=== PATIENT | male | born 1955 | race Caucasian/White ===

== ENCOUNTER 2017-07-12 10:28 | Inpatient (IN) | payer OTHER ==
[~2017-07-12] VITALS: Ht 165.1 cm; Wt 75.0 kg
[2017-07-12] MEDS ORDERED: HYDROmorphONE 1 MG/ML SYG IV STA (11:43)
[2017-07-12 11:57] LABS: ABNORMAL IP MESSAGE 1; BASOPHILS % 0.2 % (0.0-2.0); EOSINOPHILS # 0.1 10^3/ul (0.0-0.5); EOSINOPHILS % 0.3 % (0.0-7.0); HEMATOCRIT 33.4 % (42.0-52.0); HEMOGLOBIN 11.1 g/dl (14.0-18.0); LYMPHOCYTES # 1.8 10^3/ul (0.8-2.9); LYMPHOCYTES % 10.1 % (15.0-51.0); MEAN CORPUSCULAR HEMOGLOBIN 27.5 pg (29.0-33.0); MEAN CORPUSCULAR HGB CONC 33.2 g/dl (32.0-37.0); MEAN CORPUSCULAR VOLUME 82.9 fl (82.0-101.0); MEAN PLATELET VOLUME 8.8 fl (7.4-10.4); MONOCYTE # 1.7 10^3/ul (0.3-0.9); MONOCYTES % 9.5 % (0.0-11.0); NEUTROPHIL # 14.3 10^3/ul (1.6-7.5); PLATELET COUNT 295 10^3/UL (140-415); POSITIVE DIFF @See below; RED BLOOD COUNT 4.03 10^6/ul (4.70-6.10); RED CELL DISTRIBUTION WIDTH 13.9 % (11.5-14.5); WHITE BLOOD COUNT 18.1 10^3/ul (4.8-10.8)
[2017-07-12] MEDS ORDERED: LEVOFLOXACIN 500MG/D5W (PMX) 100 ML IVPB ONE (12:00)
[2017-07-12 12:14] LABS: ALBUMIN 3.7 g/dl (3.3-4.9); ALBUMIN/GLOBULIN RATIO 0.97; BILIRUBIN,INDIRECT 0.3 mg/dl (0-1.1); BILIRUBIN,TOTAL 0.3 mg/dl (0.2-1.3); CALCIUM 8.6 mg/dl (8.4-10.2); CREATININE 0.82 mg/dl (0.61-1.24); POTASSIUM 4.3 mmol/L (3.5-5.1); TOTAL PROTEIN 7.5 g/dl (6.1-8.1)
[2017-07-12 12:48] LABS: ADD UMIC YES; UR ASCORBIC ACID NEGATIVE (NEGATIVE); UR BACTERIA FEW /HPF (NONE SEEN); UR BILIRUBIN (Dip) NEGATIVE (NEGATIVE); UR BLOOD (Dip) 2+ mg/dL (NEGATIVE); UR CLARITY SLIGHTLY CLOUDY (CLEAR); UR COLOR YELLOW (YELLOW); UR GLUCOSE (Dip) 1+ mg/dL (NEGATIVE); UR KETONES (Dip) NEGATIVE (NEGATIVE); UR LEUKOCYTE ESTERASE (Dip) 3+ Leu/ul (NEGATIVE); UR MUCUS FEW /HPF (NONE SEEN); UR NITRITE (Dip) NEGATIVE (NEGATIVE); UR RBC 7 /HPF (0-5); UR SPECIFIC GRAVITY (Dip) 1.013 (1.003-1.030); UR TOTAL PROTEIN (Dip) 1+ mg/dl (NEGATIVE); UR UROBILINOGEN (Dip) 1+ mg/dL (NEGATIVE)
[2017-07-12] MEDS ORDERED: ONDANSETRON 4 MG INJ IV STA (12:55)
--- NOTE | 2017-07-12 13:05 | RADRPT ---
PROCEDURE: US Scrotum and Testicles. CLINICAL INDICATION: Scrotal pain. TECHNIQUE: Multiple sonographic images of the scrotal region were obtained utilizing a linear arra y transducer with grayscale, color-flow and Doppler imaging. The images were reviewed on a high-reso [employer] PACS workstation. COMPARISON: No prior studies are available for comparison. FINDINGS: The right testicle measures 4.4 x 2.4 x 2.9 cm. The left testicle measures 3.7 x 2.3 x 3.2 cm. The testicles demonstrate a normal echogenicity and vascularity. The right epididymis measures 0.6 cm in length. The left epididymis measures 2.8 cm in length. D iffuse heterogeneity of the left epididymis is identified. Increased vascularity in the left epididy mis is seen. Small bilateral hydroceles are observed. Scrotal wall thickening, left greater than right is observed. IMPRESSION: Enlarged, heterogeneous appearing left epididymis with increased vascularity. Findings suggest epidi dymitis. An underlying epididymis lesion or mass cannot definitely be excluded. Follow-up ultrasound after treatment is recommended. Unremarkable testicles. Small bilateral hydroceles. Scrotal wall thickening, left greater than right. Findings may reflect scrotal wall edema or potenti ally cellulitis. RPTAT: AA .Mode Soares MD, MD Date Time Electronically viewed and signed by .Mode Soares MD, MD on 07/12/2017 13:04 .P/
[2017-07-12] MEDS ORDERED: LORAZEPAM 2 MG INJ IV PRN (13:30)
[2017-07-12] MEDS ORDERED: CEFTRIAXONE 1 GM/50 ML (PMX) 50 ML IVPB ONE (13:30)
[2017-07-12] MEDS ORDERED: DOCUSATE SODIUM 100 MG CAP PO PRN (13:30)
[2017-07-12] MEDS ORDERED: ONDANSETRON 4 MG INJ IV PRN ×2 (13:30)
[2017-07-12] MEDS ORDERED: ACETAMINOPHEN 325 MG TAB PO PRN (13:30)
[2017-07-12] MEDS ORDERED: MAGNESIUM HYDROXIDE 30ML CUP PO PRN (13:30)
[2017-07-12] MEDS ORDERED: hydrALAzine 20 MG INJ IV PRN (13:30)
[2017-07-12] MEDS ORDERED: ALBUTEROL/IPRATROPIUM (NEB) 3 ML AMP HHN PRN (13:30)
[2017-07-12] MEDS ORDERED: NITROGLYCERIN (SL) 0.4 MG TAB SL PRN (13:30)
[2017-07-12] MEDS ORDERED: morphine 2 MG INJ IV PRN (13:30)
[2017-07-12] MEDS ORDERED: NA PHOSPHATE/BIPHOS 133 ML ENEMA PR PRN (13:30)
[2017-07-12] MEDS ORDERED: NACL 0.9% 3 ML SYG IV SCH (13:30)
[2017-07-12 13:36] VITALS: TEMP 97.3
[2017-07-12] MEDS ORDERED: GLUCAGON 1 MG INJ IM PRN (14:00)
[2017-07-12] MEDS ORDERED: GLUCOSE GEL 15 GRAM TUBE BUCCAL PRN (14:00)
[2017-07-12] MEDS ORDERED: HYPOGLYCEMIA PROTOCOL when Glucose is <70 mg/dL or symptomatic <90 mg/dL. XX ONE (14:00)
[2017-07-12] MEDS ORDERED: GLUCOSE GEL 15 GRAM TUBE PO PRN ×2 (14:00)
[2017-07-12] MEDS ORDERED: DEXTROSE 50% 50 ML SYRINGE IV PRN ×2 (14:00)
[2017-07-12] MEDS ORDERED: Discontinue current oral sulfonylureas (glyburide, glipizide, and/or glimepiride) prior to XX ONE (14:00)
[2017-07-12 14:06] LABS: INR 1.22; PROTIME 15.5 Sec (12.2-14.2); PT RATIO 1.2
[2017-07-12 14:07] LABS: PARTIAL THROMBOPLASTIN TIME 35.3 Sec (25.0-35.0)
--- NOTE | 2017-07-12 14:08 | ERA ---
ER Documentation Chief Complaint Date/Time DATE: 07/12/17 TIME: 14:01 Chief Complaint left testicular swelling , fever x 4 days HPI 62-year-old male with a history of diabetes presenting with left testicular pain for the past 4 days. He has had associated subjective fevers. The pain is now radiating up into his abdomen. He denies any associated dysuria or difficulty urinating. He was seen by his primary care doctor 2 days ago. A testicular ultrasound was ordered and done outpatient but they do not know the results. Primary care doctor put him on ciprofloxacin and ofloxacin orally, but these medications are not helping him. He has never had symptoms like this before. He denies any other associated symptoms such as nausea or vomiting. ROS All systems reviewed and are negative except as per history of present illness. Allergies Allergies: Coded Allergies: No Known Allergy (Unverified , 07/12/17) PMhx/Soc History of Surgery: No Anesthesia Reaction: No Hx Neurological Disorder: No Hx Respiratory Disorders: No Hx Miscellaneous Medical Probl: Yes (diabetes ) Hx Alcohol Use: No Hx Substance Use: No Hx Tobacco Use: No Smoking Status: Never smoker FmHx Family History: No coronary disease Physical Exam Vitals Vital Signs Date Time Temp Pulse Resp B/P Pulse Ox O2 Delivery O2 Flow Rate FiO2 07/12/17 13:36 97.3 62 16 125/58 99 Room Air 07/12/17 10:30 98.5 78 18 126/59 99 Physical Exam Const: Well-appearing, nontoxic, no apparent distress Head: Atraumatic Eyes: Normal Conjunctiva ENT: Normal External Ears, Nose and Mouth. Neck: Full range of motion..~ No meningismus. Resp: Clear to auscultation bilaterally Cardio: Regular rate and rhythm, no murmurs Abd: Soft, non tender, non distended. Normal bowel sounds Exam: Penis normal, uncircumcised Scrotum: Mildly erythematous on the left with induration. No crepitus or discoloration otherwise Hernia: None Testes/Epid: Left testicle enlarged and tender to palpation diffusely. Right testicle normal, nontender Cremaster: No reflex on left Lymph: Left inguinal lymphadenopathy noted Discharge: None Skin: No petechiae or rashes Back: No midline or flank tenderness Ext: No cyanosis, or edema Neur: Awake and alert Psych: Normal Mood and Affect Result Diagram: 07/12/17 1140 07/12/17 1140 Results 24 hrs Laboratory Tests Test 07/12/17 11:40 07/12/17 12:00 White Blood Count 18.110^3/ul Red Blood Count 4.0310^6/ul Hemoglobin 11.1g/dl Hematocrit 33.4% Mean Corpuscular Volume 82.9fl Mean Corpuscular Hemoglobin 27.5pg Mean Corpuscular Hemoglobin Concent 33.2g/dl Red Cell Distribution Width 13.9% Platelet Count 32718^3/UL Mean Platelet Volume 8.8fl Neutrophils % 79.0% Lymphocytes % 10.1% Monocytes % 9.5% Eosinophils % 0.3% Basophils % 0.2% Nucleated Red Blood Cells % 0.0/100WBC Neutrophils # 14.310^3/ul Lymphocytes # 1.810^3/ul Monocytes # 1.710^3/ul Eosinophils # 0.110^3/ul Basophils # 0.010^3/ul Nucleated Red Blood Cells # 0.010^3/ul Sodium Level 136mmol/L Potassium Level 4.3mmol/L Chloride Level 100mmol/L Carbon Dioxide Level 28mmol/L Anion Gap 12 Blood Urea Nitrogen 12mg/dl Creatinine 0.82mg/dl Glucose Level 147mg/dl Calcium Level 8.6mg/dl Total Bilirubin 0.3mg/dl Direct Bilirubin 0.00mg/dl Indirect Bilirubin 0.3mg/dl Aspartate Amino Transf (AST/SGOT) 23IU/L Alanine Aminotransferase (ALT/SGPT) 49IU/L Alkaline Phosphatase 160IU/L Total Protein 7.5g/dl Albumin 3.7g/dl Globulin 3.80g/dl Albumin/Globulin Ratio 0.97 Urine Color YELLOW Urine Clarity SLIGHTLY CLOUDY Urine pH 6.0 Urine Specific [place] 1.013 Urine Ketones NEGATIVEmg/dL Urine Nitrite NEGATIVEmg/dL Urine Bilirubin NEGATIVEmg/dL Urine Urobilinogen 1+mg/dL Urine Leukocyte Esterase 3+Bridget/ul Urine Microscopic RBC 7/HPF Urine Microscopic WBC > 182/HPF Urine Bacteria FEW/HPF Urine Mucus FEW/HPF Urine Hemoglobin 2+mg/dL Urine Glucose 1+mg/dL Urine Total Protein 1+mg/dl Current Medications Medications (Trade) Dose Ordered Sig/Lexi Route PRN Reason Start Time Stop Time Status Last Admin Dose Admin Hydromorphone HCl 1 mg 1 mg ONCE STAT IV 07/12/17 11:43 07/12/17 11:46 DC 07/12/17 11:53 Levofloxacin/ Dextrose (Levaquin 500mg/ D5W 100 ml (Pmx)) 100 ml @ 100 mls/hr ONCE ONCE IVPB 07/12/17 12:00 07/12/17 12:59 DC 07/12/17 11:53 Ondansetron HCl (Zofran Inj) 4 mg ONCE STAT IV 07/12/17 12:55 07/12/17 12:56 DC 07/12/17 13:01 Ondansetron HCl (Zofran Inj) 4 mg BRIDGE ORDER PRN IV NAUSEA AND/OR VOMITING 07/12/17 13:30 07/13/17 13:29 Acetaminophen 650 mg 650 mg ER BRIDGE PRN PO MILD PAIN/FEVER 07/12/17 13:30 07/13/17 13:29 Ceftriaxone Sodium (Rocephin) 50 ml @ 100 mls/hr ONCE ONCE IVPB 07/12/17 13:30 07/12/17 13:59 DC 07/12/17 13:34 IV Flush (NS 3 ml) 3 ml PER PROTOCOL IV 07/12/17 13:30 Ondansetron HCl (Zofran Inj) 4 mg Q6H PRN IV NAUSEA AND/OR VOMITING 07/12/17 13:30 Acetaminophen (Tylenol Tab) 650 mg Q6H PRN PO PAIN LEVEL 1-3 OR FEVER 07/12/17 13:30 Acetaminophen/ Hydrocodone Bitart ([place] (5/325)) 1 tab Q6H PRN PO MODERATE PAIN LEVEL 4-6 07/12/17 13:30 Morphine Sulfate (morphine) 2 mg Q4H PRN IV SEVERE PAIN LEVEL 7-10 07/12/17 13:30 Docusate Sodium (Colace) 100 mg Q12H PRN PO CONSTIPATION 07/12/17 13:30 Magnesium Hydroxide (Milk Of Mag) 30 ml DAILY PRN PO CONSTIPATION 07/12/17 13:30 Sodium Biphosphate/ Sodium Phosphate (Fleet Enema) 133 ml DAILY PRN [place] CONSTIPATION 07/12/17 13:30 Heparin Sodium (Porcine) (Heparin (5000 Units/0.5 ml)) 5,000 unit Q12 SC 07/12/17 21:00 Lorazepam 0.5 mg 0.5 mg Q6H PRN IV ANXIETY 07/12/17 13:30 Sodium Chloride (NS) 1,000 ml @ 100 mls/hr Q10H IV 07/12/17 13:20 Albuterol/ Ipratropium (Duoneb) 3 ml Q4H RESP THERAPY PRN HHN SHORTNESS OF BREATH 07/12/17 13:30 Hydralazine HCl (Apresoline) 10 mg Q6H PRN IV ELEVATED BLOOD PRESSURE 07/12/17 13:30 Clonidine (Catapres) 0.1 mg Q6H PRN PO ELEVATED BLOOD PRESSURE 07/12/17 13:30 Nitroglycerin 1 tab 1 tab Q5M PRN SL ANGINA 07/12/17 13:30 Ceftriaxone Sodium (Rocephin) 50 ml @ 100 mls/hr Q24H IVPB 07/13/17 14:00 Miscellaneous Information (* Miscellaneous Pharmacy Order) Discontinue current oral sulfonylur... ONCE ONCE XX 07/12/17 14:00 07/12/17 14:01 Diagnostic Test (Pha) (Accu-Chek) 1 ea 02 XX 07/13/17 02:00 Miscellaneous Information (* Miscellaneous Pharmacy Order) HYPOGLYCEMIA PROTOCOL w... ONCE ONCE XX 07/12/17 14:00 07/12/17 14:01 Insulin Aspart (Novolog Insulin Pen) NOVOLOG *MILD* ALGORI... Q4 SC 07/12/17 17:00 Miscellaneous Information (* Miscellaneous Pharmacy Order) Discontinue all previ... ONCE ONCE XX 07/12/17 14:00 07/12/17 14:01 Miscellaneous Information 1 ea NOTE XX 07/12/17 14:00 Glucose (Glutose) 15 gm Q15M PRN PO DECREASED GLUCOSE 07/12/17 14:00 Glucose (Glutose) 22.5 gm Q15M PRN PO DECREASED GLUCOSE 07/12/17 14:00 Dextrose (D50w Syringe) 25 ml Q15M PRN IV DECREASED GLUCOSE 07/12/17 14:00 Dextrose (D50w Syringe) 50 ml Q15M PRN IV DECREASED GLUCOSE 07/12/17 14:00 Glucagon (Glucagen) 1 mg Q15M PRN IM DECREASED GLUCOSE 07/12/17 14:00 Glucose (Glutose) 15 gm Q15M PRN BUCCAL DECREASED GLUCOSE 07/12/17 14:00 Procedures/MDM Labs CBC: leukocytosis, anemia BMP: No evidence of electrolyte abnormality, renal failure, hypoglycemia UA: Evidence of infection US Scrotum: IMPRESSION: Enlarged, heterogeneous appearing left epididymis with increased vascularity. Findings suggest epididymitis. An underlying epididymis lesion or mass cannot definitely be excluded. Follow-up ultrasound after treatment is recommended. Unremarkable testicles. Small bilateral hydroceles. Scrotal wall thickening, left greater than right. Findings may reflect scrotal wall edema or potentially cellulitis. RPTAT: AA .Mode Soares MD, MD Date Time [facility] Patient is presenting with left testicular swelling and pain. Vitals are stable and he is afebrile and nontoxic on exam. There is no evidence of Dheeraj's gangrene on my exam. Exam and ultrasound are consistent with orchitis and epididymitis. As the patient failed outpatient oral antibiotics, I will start him on IV antibiotics here. I started IV Levaquin. I spoke with Dr. Burnett, the urologist on-call, who recommended Rocephin IV as well as the patient failed oral Cipro. He also recommended possible ID consult as an inpatient. However he does not feel like this is a surgical issue and does not immediately need to see the patient. He did recommend he be consulted as an inpatient if the patient's condition deteriorates. Family and patient were updated on the plan. Accepting Care Team: Current data and ongoing care discussed. Time: Time of admission Primary Provider: Chery Consulting: Hortencia Outstanding Data: urine culture Departure Diagnosis: Primary Impression: Orchitis of left testicle Additional Impression: Epididymitis, left Condition: Serious FLACO DHALIWAL MD Jul 12, 2017 14:08
--- NOTE | 2017-07-12 14:11 | HP ---
DATE OF ADMISSION: 07/12/2017 CHIEF COMPLAINT: Scrotal pain. HISTORY OF PRESENT ILLNESS: This is a 62-year-old male, with past medical history of type 2 diabetes, essential hypertension, high cholesterol, and recent UTI who has been having scrotal pain going on for the last three days. He says he has been having subjective fevers and chills at home and also noticed increased swelling in his testicular area. He never had this before. He does say he was diagnosed with UTI about 2 weeks ago was went to his primary care doctor, and was prescribed outpatient antibiotic which he took, which did not seem to relieve his symptoms. No upper or lower GI bleeding. No diarrhea or constipation. No nausea or vomiting. No headaches or dizziness. No loss of consciousness. No chest pain or shortness of breath. No history of any stroke or heart attack. PAST MEDICAL HISTORY: As stated above. ALLERGIES: NO KNOWN DRUG ALLERGIES. MEDICATIONS: None. PAST SURGICAL HISTORY: None. SOCIAL HISTORY: Occasional alcohol use. FAMILY HISTORY: Noncontributory. PHYSICAL EXAMINATION: VITAL SIGNS: T-max 98.5, pulse 78, respirations 18, blood pressure 166/59, satting 99 percent room air. GENERAL: Patient is lying in bed, answers question appropriately. No acute distress. HEENT: Pupils equal, round, react to light. Extraocular muscles intact. NECK: Supple. No thyromegaly. LUNGS: Clear auscultation bilaterally. CARDIOVASCULAR: S1, S2 heard. No rubs, gallops. ABDOMEN: Soft, nontender, nondistended. Normal bowel sounds. No rebound or guarding. MUSCULOSKELETAL: No lower extremity bilaterally. NEUROLOGIC: No focal deficits. GENITOURINARY: Mild swelling noted in testicular area. LABS: WBC 18.1, hemoglobin 11.1, hematocrit 33.4, platelets 295. Comprehensive metabolic panel is normal. UA shows 3+ leukocyte esterase positive, negative nitrites. He had a testicular ultrasound performed that shows enlarged heterogeneous appearing left epididymis with increased vascularity suggesting epididymitis and underlying epididymis lesion or mass cannot be definitely excluded. Testicles are unremarkable. There are small bilateral hydroceles and scrotal wall thickening, left greater than right, may represent scrotal wall edema or cellulitis. ASSESSMENT/PLAN: A 62-year-old male coming in with scrotal swelling. Signs of epididymitis and possible orchitis. 1. Scrotal swelling. Again, place the patient on antibiotics. Admit the patient. Check , lipid panel. Put on broad- spectrum antibiotics. Urology team was called in the in the ER. They are recommending just conservative treatment for now. Consider Infectious Disease consult given his leukocytosis. IV fluids. Pain control medications. 2. Type 2 diabetes. Check A1c. Put on sliding scale insulin. 3. Hypertension. Blood pressure stable. Continue current blood pressure medicines. 4. High cholesterol. Check lipid panel. Continue to monitor for now. 5. DVT prophylaxis. Heparin subcu. Dictated By: Daniel Gottlieb MD /hussein/chang /Document#: [id number]
[2017-07-12 14:24] VITALS: BP 131/61; RESP 20
[2017-07-12 14:38] VITALS: Ht 165.1 cm; Wt 75.0 kg
[2017-07-12] MEDS: SOD CHLORIDE 0.9% 1,000 ML IV SCH (15:00)
[2017-07-12] MEDS ORDERED: MTF1000T PO (16:58)
[2017-07-12] MEDS ORDERED: GLIP-95 PO (16:59)
[2017-07-12] MEDS: INSULIN ASPART [NOVOLOG] 3 ML PEN SC SCH ×2 (17:00→21:00)
[2017-07-12 19:44] VITALS: BP 166/76; RESP 20
[2017-07-12] MEDS: HEPARIN 5,000 UNIT/0.5 ML VIAL SC SCH (21:21)
[2017-07-13] MEDS: SOD CHLORIDE 0.9% 1,000 ML IV SCH ×5 (00:37→21:09)
[2017-07-13] MEDS: INSULIN ASPART [NOVOLOG] 3 ML PEN SC SCH ×5 (01:00→17:00)
[2017-07-13] MEDS: ACCU-CHEK XX SCH (01:15)
--- NOTE | 2017-07-13 01:54 | CONS ---
DATE OF ADMISSION: 07/12/2017 DATE OF CONSULTATION: 07/12/2017 INFECTIOUS DISEASE CONSULTATION REASON FOR CONSULTATION: Antibiotic management. HISTORY OF PRESENT ILLNESS: Zachary Younger is a 62-year-old male who comes in with scrota l pain and is being seen for antibiotic management. His past problems include: 1. Adult-onset diabetes mellitus. 2. Essential hypertension. 3. Hypercholesterolemia. 4. Recent urinary tract infection. 5. Scrotal pain which he has been having for the last 3 days. He has subjective fever and chills. He noted increasing swelling in testicular area. He was diagno sed with UTI about 2 weeks ago, was sent to his primary care physician, was prescribed outpatient an tibiotics. Currently, he has some mild swelling in the testicular area. His white count was 18.1, H and H of 11.1 and 33.4, platelet count 295,000. Urinalysis showed 3+ leukocyte esterase and negat josefa for nitrites. He had a testicular ultrasound that showed enlarged heterogeneous appearing left epididymitis with increasing vascularity suggesting epididymitis and underlying epididymis lesion or mass that cannot be definitely excluded. Testicles unremarkable. There are small bilateral hydroc eles and scrotal wall thickening, left greater than right, may represent scrotal wall edema or cellu litis, according to the ultrasound. PAST MEDICAL HISTORY: Operations as outlined. FAMILY HISTORY: Noncontributory. SOCIAL HISTORY: He does not smoke, drink or abuse drugs. ALLERGIES: NONE TO PENICILLIN, SULFA OR FOODS. MEDICATIONS: Per chart. REVIEW OF SYSTEMS: As per HPI. PHYSICAL EXAMINATION: GENERAL: The patient is a well-developed, well-nourished male who is awake, responsive, in no acute distress. VITAL SIGNS: Stable. He is afebrile. SKIN: Without generalized rash. HEENT: Within normal limits. NECK: Supple. LYMPH NODES: None palpable. CHEST: Decreased breath sounds at the bases. HEART: Without murmur or gallop. ABDOMEN: Soft, nontender, without organosplenomegaly or masses. EXTREMITIES: Without cyanosis, clubbing or edema. RECTAL: Deferred. GENITAL: He has mild swelling in the testicular area with tenderness. NEUROLOGIC: No focal neurological abnormalities. IMPRESSION AND PLAN: The patient was started on ceftriaxone, was given some Levaquin. I believe I would prefer to put him on ertapenem and also to have urology evaluate him. Dictated By: CAROL ROSE MD, JD/NATALIE Conf#: [id number] DID#: [id number]
[2017-07-13 02:00] VITALS: BP 157/69; RESP 20
[2017-07-13] MEDS: ACETAMINOPHEN 325 MG TAB PO PRN ×2 (05:38→20:23)
[2017-07-13 06:41] LABS: CHOL/HDL RATIO 6.3 RATIO
[2017-07-13 07:02] LABS: THYROID STIMULATING HORMONE 0.885 MIU/L (0.465-4.680)
[2017-07-13 07:18] VITALS: BP 138/68; RESP 20
[2017-07-13] MEDS: HEPARIN 5,000 UNIT/0.5 ML VIAL SC SCH ×2 (08:20→20:31)
[2017-07-13 08:21] LABS: BASOPHILS % 0.3 % (0.0-2.0); EOSINOPHILS % 0.2 % (0.0-7.0); HEMATOCRIT 32.9 % (42.0-52.0); HEMOGLOBIN 11.1 g/dl (14.0-18.0); LYMPHOCYTES # 1.3 10^3/ul (0.8-2.9); LYMPHOCYTES % 12.9 % (15.0-51.0); MEAN CORPUSCULAR HGB CONC 33.7 g/dl (32.0-37.0); MEAN CORPUSCULAR VOLUME 82.9 fl (82.0-101.0); MEAN PLATELET VOLUME 10.9 fl (7.4-10.4); MONOCYTE # 1.1 10^3/ul (0.3-0.9); MONOCYTES % 10.6 % (0.0-11.0); NEUTROPHIL # 7.9 10^3/ul (1.6-7.5); NEUTROPHILS % 75.4 % (39.0-77.0); PLATELET COUNT 226 10^3/UL (140-415); RED BLOOD COUNT 3.97 10^6/ul (4.70-6.10); RED CELL DISTRIBUTION WIDTH 13.6 % (11.5-14.5); WHITE BLOOD COUNT 10.4 10^3/ul (4.8-10.8)
[2017-07-13 08:41] LABS: CALCIUM 8.4 mg/dl (8.4-10.2); CREATININE 0.73 mg/dl (0.61-1.24); MAGNESIUM 1.7 mg/dl (1.7-2.5); PHOSPHORUS 4.1 mg/dl (2.5-4.9); POTASSIUM 4.3 mmol/L (3.5-5.1)
--- NOTE | 2017-07-13 09:32 | PN ---
Date/Time of Note Date/Time of Note DATE: 07/13/17 TIME: 09:24 Assessment/Plan VTE Prophylaxis VTE Prophylaxis Intervention: heparin Lines/Catheters IV Catheter Type (from Nrsg): Peripheral IV Urinary Cath still in place: No Assessment/Plan Assessment/Plan 1. Left epididymis with scrotal cellulitis - Patient states feeling better and less discomfort in testicular area - Urology consulted in ED and recommended conservative management for now - ID on board and recommendations appreciated - Currently on Ceftriaxone and WBC normalized - Will try clear liquid diet and advance as tolerated. Per patient, has not been able to eat since - PT to work with patient today - pain control 2. UTI - on Ceftriaxone - Denies any urinary complaints 3. HTN - BP stable 4. DM - A1c 6.2 - Continue with ISS and accuchecks - sugars well controlled 5. Disposition - Advance diet as tolerated - Continue to monitor on med/surg Subjective 24 Hr Interval Summary Free Text/Dictation Patient feeling better and wants to try to eat clear liquids for now. Denies any nausea, vomiting, fevers, worsening pain, discomfort with urination, or abdominal issues. Exam/Review of Systems Vital Signs Vitals Vital Signs Date Time Temp Pulse Resp B/P Pulse Ox O2 Delivery O2 Flow Rate FiO2 07/13/17 07:18 98.8 79 20 138/68 98 07/12/17 13:36 Room Air Intake and Output 07/12/17 07/12/17 07/13/17 15:00 23:00 07:00 Intake Total 300 ml 650 ml Output Total 1250 ml Balance 300 ml -600 ml Exam GENERAL: NAD, awake and alert. lying in bed comfortably HEENT: Pupils equal, round, react to light. Extraocular muscles intact. NECK: Supple. LUNGS: Clear auscultation bilaterally. no wheezes, rales, rhonchi CARDIOVASCULAR: S1, S2 heard. No rubs, gallops, or murmurs ABDOMEN: Soft, nontender, nondistended. Normal bowel sounds. No rebound or guarding. MUSCULOSKELETAL: No lower extremity bilaterally. NEUROLOGIC: No focal deficits. GENITOURINARY: Swelling of left testicle with mild tenderness with palpation Results Result Diagram: 07/13/17 0723 07/13/17 0723 Results 24 hrs Laboratory Tests Test 07/12/17 11:40 07/12/17 12:00 07/12/17 13:00 07/12/17 17:28 White Blood Count 18.1 H Red Blood Count 4.03 L Hemoglobin 11.1 L Hematocrit 33.4 L Mean Corpuscular Volume 82.9 Mean Corpuscular Hemoglobin 27.5 L Mean Corpuscular Hemoglobin Concent 33.2 Red Cell Distribution Width 13.9 Platelet Count 295 Mean Platelet Volume 8.8 Neutrophils % 79.0 H Lymphocytes % 10.1 L Monocytes % 9.5 Eosinophils % 0.3 Basophils % 0.2 Nucleated Red Blood Cells % 0.0 Neutrophils # 14.3 H Lymphocytes # 1.8 Monocytes # 1.7 H Eosinophils # 0.1 Basophils # 0.0 Nucleated Red Blood Cells # 0.0 Sodium Level 136 Potassium Level 4.3 Chloride Level 100 Carbon Dioxide Level 28 Anion Gap 12 Blood Urea Nitrogen 12 Creatinine 0.82 Glucose Level 147 Calcium Level 8.6 Total Bilirubin 0.3 Direct Bilirubin 0.00 Indirect Bilirubin 0.3 Aspartate Amino Transf (AST/SGOT) 23 Alanine Aminotransferase (ALT/SGPT) 49 Alkaline Phosphatase 160 H Total Protein 7.5 Albumin 3.7 Globulin 3.80 H Albumin/Globulin Ratio 0.97 Urine Color YELLOW Urine Clarity SLIGHTLY CLOUDY A Urine pH 6.0 Urine Specific [place] 1.013 Urine Ketones NEGATIVE Urine Nitrite NEGATIVE Urine Bilirubin NEGATIVE Urine Urobilinogen 1+ H Urine Leukocyte Esterase 3+ H Urine Microscopic RBC 7 H Urine Microscopic WBC > 182 H Urine Bacteria FEW A Urine Mucus FEW A Urine Hemoglobin 2+ H Urine Glucose 1+ H Urine Total Protein 1+ H Free Thyroxine 1.63 Prothrombin Time 15.5 H Prothrombin Time Ratio 1.2 INR International Normalized Ratio 1.22 Activated Partial Thromboplast Time 35.3 H Bedside Glucose 132 Test 07/12/17 21:18 07/13/17 00:40 07/13/17 05:30 07/13/17 05:31 Bedside Glucose 119 105 119 Hemoglobin A1c 6.2 H Triglycerides Level 115 Cholesterol Level 126 LDL Cholesterol, Calculated 83 HDL Cholesterol 20 L Cholesterol/HDL Ratio 6.3 Thyroid Stimulating Hormone (TSH) 0.885 Test 07/13/17 07:23 07/13/17 08:12 White Blood Count 10.4 # Red Blood Count 3.97 L Hemoglobin 11.1 L Hematocrit 32.9 L Mean Corpuscular Volume 82.9 Mean Corpuscular Hemoglobin 28.0 L Mean Corpuscular Hemoglobin Concent 33.7 Red Cell Distribution Width 13.6 Platelet Count 226 # Mean Platelet Volume 10.9 #H Neutrophils % 75.4 Lymphocytes % 12.9 L Monocytes % 10.6 Eosinophils % 0.2 Basophils % 0.3 Nucleated Red Blood Cells % 0.0 Neutrophils # 7.9 H Lymphocytes # 1.3 Monocytes # 1.1 H Eosinophils # 0.0 Basophils # 0.0 Nucleated Red Blood Cells # 0.0 Sodium Level 139 Potassium Level 4.3 Chloride Level 103 Carbon Dioxide Level 25 Anion Gap 15 Blood Urea Nitrogen 11 Creatinine 0.73 Glucose Level 113 Calcium Level 8.4 Phosphorus Level 4.1 Magnesium Level 1.7 Bedside Glucose 116 Medications Medications Current Medications Ondansetron HCl (Zofran Inj) 4 mg Q6H PRN IV NAUSEA AND/OR VOMITING; Start at 13:30 Acetaminophen (Tylenol Tab) 650 mg Q6H PRN PO PAIN LEVEL 1-3 OR FEVER Last administered on 07/13/17 05:38; Admin Dose 650 MG; Start 07/12/17 at 13:30 Acetaminophen/ Hydrocodone Bitart ([place] (5/325)) 1 tab Q6H PRN PO MODERATE PAIN LEVEL 4-6; Start 07/12/17 at 13:30 Morphine Sulfate (morphine) 2 mg Q4H PRN IV SEVERE PAIN LEVEL 7-10; Start at 13:30 Docusate Sodium (Colace) 100 mg Q12H PRN PO CONSTIPATION; Start 07/12/17 at 13 :30 Magnesium Hydroxide (Milk Of Mag) 30 ml DAILY PRN PO CONSTIPATION; Start 07/12 at 13:30 Sodium Biphosphate/ Sodium Phosphate (Fleet Enema) 133 ml DAILY PRN [place] CONSTIPATION; Start 07/12/17 at 13:30 Heparin Sodium (Porcine) (Heparin (5000 Units/0.5 ml)) 5,000 unit Q12 SC Last administered on 07/13/17 08:20; Admin Dose 5,000 UNIT; Start 07/12/17 at 21: 00 Lorazepam 0.5 mg 0.5 mg Q6H PRN IV ANXIETY; Start 07/12/17 at 13:30 Sodium Chloride (NS) 1,000 ml @ 100 mls/hr Q10H IV Last administered on 00:37; Admin Dose 100 MLS/HR; Start 07/12/17 at 13:20 Hydralazine HCl (Apresoline) 10 mg Q6H PRN IV ELEVATED BLOOD PRESSURE; Start 07/12/17 at 13:30 Clonidine (Catapres) 0.1 mg Q6H PRN PO ELEVATED BLOOD PRESSURE; Start at 13:30 Nitroglycerin 1 tab 1 tab Q5M PRN SL ANGINA; Start 07/12/17 at 13:30 Ceftriaxone Sodium (Rocephin) 50 ml @ 100 mls/hr Q24H IVPB ; Start 07/13/17 at 14:00 Diagnostic Test (Pha) (Accu-Chek) 1 ea 02 XX Last administered on 07/13/17t 01 :15; Admin Dose 1 EA; Start 07/13/17 at 02:00 Insulin Aspart (Novolog Insulin Pen) NOVOLOG *MILD* ALGORI... Q4 SC ; Start at 17:00 Miscellaneous Information 1 ea NOTE XX ; Start 07/12/17 at 14:00 Glucose (Glutose) 15 gm Q15M PRN PO DECREASED GLUCOSE; Start 07/12/17 at 14:00 Glucose (Glutose) 22.5 gm Q15M PRN PO DECREASED GLUCOSE; Start 07/12/17 at 14: 00 Dextrose (D50w Syringe) 25 ml Q15M PRN IV DECREASED GLUCOSE; Start 07/12/17 at 14:00 Dextrose (D50w Syringe) 50 ml Q15M PRN IV DECREASED GLUCOSE; Start 07/12/17 at 14:00 Glucagon (Glucagen) 1 mg Q15M PRN IM DECREASED GLUCOSE; Start 07/12/17 at 14: 00 Glucose (Glutose) 15 gm Q15M PRN BUCCAL DECREASED GLUCOSE; Start 07/12/17 at 14:00 MATHEW OLMOS MD Jul 13, 2017 09:32
[2017-07-13 14:17] VITALS: BP 158/65; RESP 20
[2017-07-13] MEDS: CEFTRIAXONE 2 GM/50 ML (PMX) 50 ML IVPB SCH (14:42)
--- NOTE | 2017-07-13 15:26 | CONS ---
Date/Time of Note Date/Time of Note DATE: 07/13/17 TIME: 15:15 Consultation Date/Type/Reason Admit Date/Time Jul 12, 2017 at 13:09 Initial Consult Date SUBJECTIVE: 62-year-old male being treated for scrotal pain and Epididymitis and UTI. Being seen by . Feeling ok. Denies fever, chills. Still has some pain in the scrotal region. Currently, he has some mild swelling in the testicular area. No Acute events overnight. VS: 158/65 P69 R;20 T:99.3 SO2:98% LABS: WBC- 10.4 from 18.1, H&H: 11.1/32.9 BUN-11 Creat-0.73. UA culture Pending. Antibiotics: Rocephin IV US Impression: He had a testicular ultrasound that showed enlarged heterogeneous appearing left epididymitis with increasing vascularity suggesting epididymitis and underlying epididymis lesion or mass that cannot be definitely excluded. Testicles unremarkable. There are small bilateral hydroceles and scrotal wall thickening, left greater than right, may represent scrotal wall edema or cellulitis, according to the ultrasound. ALLERGIES: NONE TO PENICILLIN, SULFA OR FOODS. PHYSICAL EXAMINATION: GENERAL: The patient is a well-developed, well-nourished male who is awake, responsive, in no acute distress. VITAL SIGNS: Stable. He is afebrile. SKIN: Without generalized rash. HEENT: Within normal limits. NECK: Supple. LYMPH NODES: None palpable. CHEST: Decreased breath sounds at the bases. HEART: Without murmur or gallop. ABDOMEN: Soft, nontender, without organosplenomegaly or masses. EXTREMITIES: Without cyanosis, clubbing or edema. RECTAL: Deferred. GENITAL: He has mild swelling in the testicular area with tenderness. NEUROLOGIC: No focal neurological abnormalities. IMPRESSION AND PLAN: The patient is stable. Continue ceftriaxone. Pain management. Will follow with UA culture when ready. ANASTACIO ennis. Type of Consultation: ID Exam/Review of Systems Vital Signs Vitals Vital Signs Date Time Temp Pulse Resp B/P Pulse Ox O2 Delivery O2 Flow Rate FiO2 07/13/17 14:17 99.3 69 20 158/65 98 07/12/17 13:36 Room Air Intake and Output 07/12/17 07/12/17 07/13/17 15:00 23:00 07:00 Intake Total 300 ml 650 ml Output Total 1250 ml Balance 300 ml -600 ml Results Result Diagram: 07/13/1723 07/13/1723 Results 24 hrs Laboratory Tests Test 07/12/17 17:28 07/12/17 21:18 07/13/17 00:40 07/13/17 05:30 Bedside Glucose 132 119 105 Hemoglobin A1c 6.2 H Triglycerides Level 115 Cholesterol Level 126 LDL Cholesterol, Calculated 83 HDL Cholesterol 20 L Cholesterol/HDL Ratio 6.3 Thyroid Stimulating Hormone (TSH) 0.885 Test 07/13/17 05:31 07/13/17 07:23 07/13/17 08:12 07/13/17 12:17 Bedside Glucose 119 116 192 White Blood Count 10.4 # Red Blood Count 3.97 L Hemoglobin 11.1 L Hematocrit 32.9 L Mean Corpuscular Volume 82.9 Mean Corpuscular Hemoglobin 28.0 L Mean Corpuscular Hemoglobin Concent 33.7 Red Cell Distribution Width 13.6 Platelet Count 226 # Mean Platelet Volume 10.9 #H Neutrophils % 75.4 Lymphocytes % 12.9 L Monocytes % 10.6 Eosinophils % 0.2 Basophils % 0.3 Nucleated Red Blood Cells % 0.0 Neutrophils # 7.9 H Lymphocytes # 1.3 Monocytes # 1.1 H Eosinophils # 0.0 Basophils # 0.0 Nucleated Red Blood Cells # 0.0 Sodium Level 139 Potassium Level 4.3 Chloride Level 103 Carbon Dioxide Level 25 Anion Gap 15 Blood Urea Nitrogen 11 Creatinine 0.73 Glucose Level 113 Calcium Level 8.4 Phosphorus Level 4.1 Magnesium Level 1.7 Test 07/13/17 13:09 Bedside Glucose 170 Medications Medications Current Medications Ondansetron HCl (Zofran Inj) 4 mg Q6H PRN IV NAUSEA AND/OR VOMITING; Start at 13:30 Acetaminophen (Tylenol Tab) 650 mg Q6H PRN PO PAIN LEVEL 1-3 OR FEVER Last administered on 07/13/17t 05:38; Admin Dose 650 MG; Start 07/12/17 at 13:30 Acetaminophen/ Hydrocodone Bitart ([place] (5/325)) 1 tab Q6H PRN PO MODERATE PAIN LEVEL 4-6; Start 07/12/17 at 13:30 Morphine Sulfate (morphine) 2 mg Q4H PRN IV SEVERE PAIN LEVEL 7-10; Start at 13:30 Docusate Sodium (Colace) 100 mg Q12H PRN PO CONSTIPATION; Start 07/12/17 at 13 :30 Magnesium Hydroxide (Milk Of Mag) 30 ml DAILY PRN PO CONSTIPATION; Start 07/12 at 13:30 Sodium Biphosphate/ Sodium Phosphate (Fleet Enema) 133 ml DAILY PRN [place] CONSTIPATION; Start 07/12/17 at 13:30 Heparin Sodium (Porcine) (Heparin (5000 Units/0.5 ml)) 5,000 unit Q12 SC Last administered on 07/13/17 08:20; Admin Dose 5,000 UNIT; Start 07/12/17 at 21: 00 Lorazepam 0.5 mg 0.5 mg Q6H PRN IV ANXIETY; Start 07/12/17 at 13:30 Sodium Chloride (NS) 1,000 ml @ 100 mls/hr Q10H IV Last administered on 10:42; Admin Dose 100 MLS/HR; Start 07/12/17 at 13:20 Hydralazine HCl (Apresoline) 10 mg Q6H PRN IV ELEVATED BLOOD PRESSURE; Start 07/12/17 at 13:30 Clonidine (Catapres) 0.1 mg Q6H PRN PO ELEVATED BLOOD PRESSURE; Start at 13:30 Nitroglycerin 1 tab 1 tab Q5M PRN SL ANGINA; Start 07/12/17 at 13:30 Ceftriaxone Sodium (Rocephin) 50 ml @ 100 mls/hr Q24H IVPB Last administered on 07/13/17 14:42; Admin Dose 100 MLS/HR; Start 07/13/17 at 14:00 Diagnostic Test (Pha) (Accu-Chek) 1 ea 02 XX Last administered on 07/13/17 01 :15; Admin Dose 1 EA; Start 07/13/17 at 02:00 Insulin Aspart (Novolog Insulin Pen) NOVOLOG *MILD* ALGORI... Q4 SC Last administered on 07/13/17 13:16; Admin Dose 1 UNIT; Start 07/12/17 at 17:00 Miscellaneous Information 1 ea NOTE XX ; Start 07/12/17 at 14:00 Glucose (Glutose) 15 gm Q15M PRN PO DECREASED GLUCOSE; Start 07/12/17 at 14:00 Glucose (Glutose) 22.5 gm Q15M PRN PO DECREASED GLUCOSE; Start 07/12/17 at 14: 00 Dextrose (D50w Syringe) 25 ml Q15M PRN IV DECREASED GLUCOSE; Start 07/12/17 at 14:00 Dextrose (D50w Syringe) 50 ml Q15M PRN IV DECREASED GLUCOSE; Start 07/12/17 at 14:00 Glucagon (Glucagen) 1 mg Q15M PRN IM DECREASED GLUCOSE; Start 07/12/17 at 14: 00 Glucose (Glutose) 15 gm Q15M PRN BUCCAL DECREASED GLUCOSE; Start 07/12/17 at 14:00 SAURABH CARLOS Jul 13, 2017 15:25
[2017-07-13 19:48] VITALS: BP 161/73; RESP 20
[2017-07-13] MEDS: Insulin NOVOLOG SS MILD Algorithm (SS with meals and bedtime) SC SCH (20:38)
[2017-07-13] MEDS ORDERED: INSULIN ASPART [NOVOLOG] 3 ML PEN SC SCH (21:00)
[2017-07-13] MEDS: HYDROCODONE/APAP (5/325) TAB PO PRN (21:09)
[2017-07-14 02:00] VITALS: BP 163/74; RESP 20
[2017-07-14] MEDS: ACCU-CHEK XX SCH (02:00)
[2017-07-14 06:35] LABS: BASOPHILS % 0.3 % (0.0-2.0); EOSINOPHILS # 0.3 10^3/ul (0.0-0.5); EOSINOPHILS % 2.7 % (0.0-7.0); HEMATOCRIT 34.1 % (42.0-52.0); HEMOGLOBIN 11.4 g/dl (14.0-18.0); LYMPHOCYTES # 2.1 10^3/ul (0.8-2.9); LYMPHOCYTES % 19.6 % (15.0-51.0); MEAN CORPUSCULAR HEMOGLOBIN 27.7 pg (29.0-33.0); MEAN CORPUSCULAR HGB CONC 33.4 g/dl (32.0-37.0); MEAN PLATELET VOLUME 10.2 fl (7.4-10.4); MONOCYTE # 1.3 10^3/ul (0.3-0.9); MONOCYTES % 12.1 % (0.0-11.0); NEUTROPHIL # 6.8 10^3/ul (1.6-7.5); NEUTROPHILS % 64.5 % (39.0-77.0); PLATELET COUNT 187 10^3/UL (140-415); RED BLOOD COUNT 4.11 10^6/ul (4.70-6.10); RED CELL DISTRIBUTION WIDTH 13.6 % (11.5-14.5); WHITE BLOOD COUNT 10.5 10^3/ul (4.8-10.8)
[2017-07-14 07:02] LABS: CALCIUM 8.6 mg/dl (8.4-10.2); CREATININE 0.74 mg/dl (0.61-1.24); POTASSIUM 4.2 mmol/L (3.5-5.1)
[2017-07-14] MEDS: SOD CHLORIDE 0.9% 1,000 ML IV SCH ×2 (07:04→21:05)
[2017-07-14 07:38] VITALS: BP 174/81; RESP 20
[2017-07-14] MEDS: Insulin NOVOLOG SS MILD Algorithm (SS with meals and bedtime) SC SCH ×4 (08:00→20:34)
[2017-07-14] MEDS: HEPARIN 5,000 UNIT/0.5 ML VIAL SC SCH ×2 (08:29→20:37)
[2017-07-14 09:34] VITALS: BP 117/56; PULSE 62
[2017-07-14] MEDS ORDERED: SITA50TA2 PO (09:38)
[2017-07-14] MEDS ORDERED: LISI2.5T59 PO (09:38)
[2017-07-14] MEDS ORDERED: ATOR10TA65 PO (09:38)
[2017-07-14] MEDS: ACETAMINOPHEN 325 MG TAB PO PRN ×2 (09:55→19:05)
--- NOTE | 2017-07-14 12:21 | PN ---
Date/Time of Note Date/Time of Note DATE: 07/14/17 TIME: 12:21 Assessment/Plan VTE Prophylaxis VTE Prophylaxis Intervention: heparin Lines/Catheters IV Catheter Type (from Nrs): Saline Lock Urinary Cath still in place: No Assessment/Plan Assessment/Plan 1. Left epididymis with scrotal cellulitis - Significantly improved and not experiencing pain. Testicle is softer as well compared to yesterday. - Urology consulted in ED and recommended conservative management for now - ID on board and recommendations appreciated - Currently on Ceftriaxone day 2 and WBC normalized. patient afebrile - Tolerating diet and will advance to regular - pain control, adequate on Tylenol - Will need repeat US of testicle once antibiotic therapy completed 2. UTI - on Ceftriaxone - Denies any urinary complaints - Preliminary cultures growing gram negative. Awaiting final cultures and will change to PO antibiotics based on sensitivities 3. HTN - BP stable 4. DM - A1c 6.2 - Continue with ISS and accuchecks - sugars well controlled 5. Disposition - Awaiting urine cultures results - Continue to monitor on med/surg Subjective 24 Hr Interval Summary Free Text/Dictation Patient doing well and states feels as if his left testicle has significantly improved since admission. Denies any pain and has adequate relief with Tylenol. Denies any fevers, chills, nausea, vomiting, chest pain, shortness of breath, or abdominal issues. No acute overnight events. Tolerating diet. Exam/Review of Systems Vital Signs Vitals Vital Signs Date Time Temp Pulse Resp B/P Pulse Ox O2 Delivery O2 Flow Rate FiO2 07/14/17 09:34 62 117/56 07/14/17 07:38 99.1 20 99 07/12/17 13:36 Room Air Intake and Output 07/13/17 07/13/17 07/14/17 15:00 23:00 07:00 Intake Total 350 ml 1770 ml 1040 ml Output Total 1525 ml 1000 ml Balance 350 ml 245 ml 40 ml Exam GENERAL: NAD, awake and alert. lying in bed comfortably HEENT: Pupils equal, round, react to light. Extraocular muscles intact. NECK: Supple. LUNGS: Clear auscultation bilaterally. no wheezes, rales, rhonchi CARDIOVASCULAR: S1, S2 heard. No rubs, gallops, or murmurs ABDOMEN: Soft, nontender, nondistended. Normal bowel sounds. No rebound or guarding. MUSCULOSKELETAL: No lower extremity bilaterally. NEUROLOGIC: No focal deficits. GENITOURINARY: Improvement in swelling left testicle, softer compared to yesterday, no pain with palpation Results Result Diagram: 07/14/1735 07/14/17 0535 Results 24 hrs Laboratory Tests Test 07/13/17 13:09 07/13/17 17:43 07/13/17 20:26 07/14/17 05:35 Bedside Glucose 170 122 129 White Blood Count 10.5 Red Blood Count 4.11 L Hemoglobin 11.4 L Hematocrit 34.1 L Mean Corpuscular Volume 83.0 Mean Corpuscular Hemoglobin 27.7 L Mean Corpuscular Hemoglobin Concent 33.4 Red Cell Distribution Width 13.6 Platelet Count 187 Mean Platelet Volume 10.2 Neutrophils % 64.5 Lymphocytes % 19.6 Monocytes % 12.1 H Eosinophils % 2.7 Basophils % 0.3 Nucleated Red Blood Cells % 0.0 Neutrophils # 6.8 Lymphocytes # 2.1 Monocytes # 1.3 H Eosinophils # 0.3 Basophils # 0.0 Nucleated Red Blood Cells # 0.0 Sodium Level 138 Potassium Level 4.2 Chloride Level 101 Carbon Dioxide Level 29 Anion Gap 12 Blood Urea Nitrogen 9 Creatinine 0.74 Glucose Level 106 Calcium Level 8.6 Magnesium Level 1.6 L Test 07/14/17 08:10 07/14/17 12:06 Bedside Glucose 109 162 Medications Medications Current Medications Ondansetron HCl (Zofran Inj) 4 mg Q6H PRN IV NAUSEA AND/OR VOMITING; Start at 13:30 Acetaminophen (Tylenol Tab) 650 mg Q6H PRN PO PAIN LEVEL 1-3 OR FEVER Last administered on 07/14/17 09:55; Admin Dose 650 MG; Start 07/12/17 at 13:30 Acetaminophen/ Hydrocodone Bitart ([place] (5/325)) 1 tab Q6H PRN PO MODERATE PAIN LEVEL 4-6 Last administered on 07/13/17 21:09; Admin Dose 1 TAB; Start 07/12/17 at 13:30 Morphine Sulfate (morphine) 2 mg Q4H PRN IV SEVERE PAIN LEVEL 7-10; Start at 13:30 Docusate Sodium (Colace) 100 mg Q12H PRN PO CONSTIPATION; Start 07/12/17 at 13 :30 Magnesium Hydroxide (Milk Of Mag) 30 ml DAILY PRN PO CONSTIPATION; Start 07/12 at 13:30 Sodium Biphosphate/ Sodium Phosphate (Fleet Enema) 133 ml DAILY PRN [place] CONSTIPATION; Start 07/12/17 at 13:30 Heparin Sodium (Porcine) (Heparin (5000 Units/0.5 ml)) 5,000 unit Q12 SC Last administered on 07/14/17 08:29; Admin Dose 5,000 UNIT; Start 07/12/17 at 21: 00 Lorazepam 0.5 mg 0.5 mg Q6H PRN IV ANXIETY; Start 07/12/17 at 13:30 Sodium Chloride (NS) 1,000 ml @ 100 mls/hr Q10H IV Last administered on 07:04; Admin Dose 100 MLS/HR; Start 07/12/17 at 13:20 Hydralazine HCl (Apresoline) 10 mg Q6H PRN IV ELEVATED BLOOD PRESSURE; Start 07/12/17 at 13:30 Clonidine (Catapres) 0.1 mg Q6H PRN PO ELEVATED BLOOD PRESSURE Last administered on 07/14/17 08:24; Admin Dose 0.1 MG; Start 07/12/17 at 13:30 Nitroglycerin 1 tab 1 tab Q5M PRN SL ANGINA; Start 07/12/17 at 13:30 Ceftriaxone Sodium (Rocephin) 50 ml @ 100 mls/hr Q24H IVPB Last administered on 07/13/17 14:42; Admin Dose 100 MLS/HR; Start 07/13/17 at 14:00 Diagnostic Test (Pha) (Accu-Chek) 1 ea 02 XX Last administered on 07/13/17 01 :15; Admin Dose 1 EA; Start 07/13/17 at 02:00 Miscellaneous Information 1 ea NOTE XX ; Start 07/12/17 at 14:00 Glucose (Glutose) 15 gm Q15M PRN PO DECREASED GLUCOSE; Start 07/12/17 at 14:00 Glucose (Glutose) 22.5 gm Q15M PRN PO DECREASED GLUCOSE; Start 07/12/17 at 14: 00 Dextrose (D50w Syringe) 25 ml Q15M PRN IV DECREASED GLUCOSE; Start 07/12/17 at 14:00 Dextrose (D50w Syringe) 50 ml Q15M PRN IV DECREASED GLUCOSE; Start 07/12/17 at 14:00 Glucagon (Glucagen) 1 mg Q15M PRN IM DECREASED GLUCOSE; Start 07/12/17 at 14: 00 Glucose 15 gm 15 gm Q15M PRN BUCCAL DECREASED GLUCOSE; Start 07/12/17 at 14:00 Magnesium Sulfate (Magnesium Sulfate 2 Gm/50 ml) 50 ml @ 25 mls/hr ONCE ONCE IVPB ; Start 07/14/17 at 12:30; Stop 07/14/17 at 14:29; Status UNMATHEW BURNETT MD Jul 14, 2017 12:21
[2017-07-14] MEDS ORDERED: MAGNESIUM SULFATE 2 GM/50 ML 50 ML IVPB ONE (13:00)
[2017-07-14] MEDS: CEFTRIAXONE 2 GM/50 ML (PMX) 50 ML IVPB SCH (13:26)
[2017-07-14 13:58] VITALS: BP 143/67; RESP 20
--- NOTE | 2017-07-14 14:47 | PN ---
DATE: 07/14/2017 SUBJECTIVE: No acute changes overnight. The patient is lying comfortably in bed. VITAL SIGNS: T-max 100.8 currently. Afebrile. WBC today 10.5, no shift, no bands. BUN 9, creatin ine 0.74. MICROBIOLOGY: Urine culture growing gram-negative rods. ANTIMICROBIALS: Rocephin. PHYSICAL EXAMINATION: GENERAL: Well-developed, elderly man in no distress. HEENT: Head atraumatic, normocephalic. Sclerae anicteric. Buccal mucosa pink, dry. NECK: Supple. CHEST: Rise symmetrical. Breath sounds clear, diminished to bases. HEART: S1, S2. ABDOMEN: Soft. Bowel sounds present. ASSESSMENT: 1. Systemic inflammatory response syndrome. 2. Urinary tract infection with evidence of left epididymitis. 3. Questionable epididymis lesion or mass as per ultrasound. 4. Diabetes. 5. Hypertension. PLAN: The patient remains stable, covered with appropriate antibiotics. Urine culture pending. Co ntinue present care. Consider urology evaluation. Dictated By: JOSÉ MIGUEL CASPER DIRECTOR RADIO cristian SHEETS/NATALIE Conf#: [id number] DID#: [id number]
[2017-07-14] MEDS: ATORVASTATIN 10 MG TAB PO SCH (20:35)
[2017-07-14 20:38] VITALS: BP 169/77; RESP 18
[2017-07-15] MEDS: SOD CHLORIDE 0.9% 1,000 ML IV SCH ×3 (00:46→17:18)
[2017-07-15] MEDS: ACCU-CHEK XX SCH (01:53)
[2017-07-15 02:00] VITALS: BP 156/70; RESP 18
[2017-07-15 06:21] LABS: BASOPHIL # 0.1 10^3/ul (0.0-0.1); BASOPHILS % 0.4 % (0.0-2.0); EOSINOPHILS # 0.4 10^3/ul (0.0-0.5); EOSINOPHILS % 3.7 % (0.0-7.0); HEMATOCRIT 33.9 % (42.0-52.0); HEMOGLOBIN 11.5 g/dl (14.0-18.0); LYMPHOCYTES # 1.8 10^3/ul (0.8-2.9); LYMPHOCYTES % 15.5 % (15.0-51.0); MEAN CORPUSCULAR HGB CONC 33.9 g/dl (32.0-37.0); MEAN CORPUSCULAR VOLUME 82.5 fl (82.0-101.0); MEAN PLATELET VOLUME 9.8 fl (7.4-10.4); MONOCYTE # 1.2 10^3/ul (0.3-0.9); MONOCYTES % 10.7 % (0.0-11.0); NEUTROPHIL # 7.9 10^3/ul (1.6-7.5); NEUTROPHILS % 68.8 % (39.0-77.0); PLATELET COUNT 232 10^3/UL (140-415); RED BLOOD COUNT 4.11 10^6/ul (4.70-6.10); RED CELL DISTRIBUTION WIDTH 13.4 % (11.5-14.5); WHITE BLOOD COUNT 11.4 10^3/ul (4.8-10.8)
[2017-07-15] MEDS: ACETAMINOPHEN 325 MG TAB PO PRN (06:21)
[2017-07-15 06:48] LABS: CALCIUM 8.6 mg/dl (8.4-10.2); CREATININE 0.66 mg/dl (0.61-1.24); POTASSIUM 3.9 mmol/L (3.5-5.1)
[2017-07-15 07:41] VITALS: BP 168/77; RESP 18
[2017-07-15] MEDS: Insulin NOVOLOG SS MILD Algorithm (SS with meals and bedtime) SC SCH ×4 (08:00→20:47)
[2017-07-15] MEDS: LISINOPRIL 5 MG TAB PO SCH (09:17)
[2017-07-15] MEDS: HEPARIN 5,000 UNIT/0.5 ML VIAL SC SCH ×2 (09:47→20:46)
--- NOTE | 2017-07-15 12:56 | CONS ---
Date/Time of Note Date/Time of Note DATE: 07/15/17 TIME: 12:54 Consult Date/Type/Reason Admit Date/Time Jul 12, 2017 at 13:09 Initial Consult Date Type of Consultation: ID Objective Vital Signs Date Time Temp Pulse Resp B/P Pulse Ox O2 Delivery O2 Flow Rate FiO2 07/15/17 07:41 98.2 66 18 168/77 99 07/12/17 13:36 Room Air Intake and Output 07/14/17 07/14/17 07/15/17 15:00 23:00 07:00 Intake Total 250 ml 2730 ml 1670 ml Output Total 2400 ml 3375 ml Balance 250 ml 330 ml -1705 ml Results/Medications Result Diagram: 07/15/17 0530 07/15/17 0530 Results 24 hrs Laboratory Tests Test 07/14/17 17:30 07/14/17 20:34 07/15/17 05:30 07/15/17 07:58 Bedside Glucose 167 156 111 White Blood Count 11.4 H Red Blood Count 4.11 L Hemoglobin 11.5 L Hematocrit 33.9 L Mean Corpuscular Volume 82.5 Mean Corpuscular Hemoglobin 28.0 L Mean Corpuscular Hemoglobin Concent 33.9 Red Cell Distribution Width 13.4 Platelet Count 232 # Mean Platelet Volume 9.8 Neutrophils % 68.8 Lymphocytes % 15.5 Monocytes % 10.7 Eosinophils % 3.7 Basophils % 0.4 Nucleated Red Blood Cells % 0.0 Neutrophils # 7.9 H Lymphocytes # 1.8 Monocytes # 1.2 H Eosinophils # 0.4 Basophils # 0.1 Nucleated Red Blood Cells # 0.0 Sodium Level 138 Potassium Level 3.9 Chloride Level 103 Carbon Dioxide Level 27 Anion Gap 12 Blood Urea Nitrogen 9 Creatinine 0.66 Glucose Level 115 Calcium Level 8.6 Magnesium Level 1.8 Test 07/15/17 12:28 Bedside Glucose 136 Medications Current Medications Ondansetron HCl (Zofran Inj) 4 mg Q6H PRN IV NAUSEA AND/OR VOMITING; Start at 13:30 Acetaminophen (Tylenol Tab) 650 mg Q6H PRN PO PAIN LEVEL 1-3 OR FEVER Last administered on 07/15/17t 06:21; Admin Dose 650 MG; Start 07/12/17 at 13:30 Acetaminophen/ Hydrocodone Bitart ([place] (5/325)) 1 tab Q6H PRN PO MODERATE PAIN LEVEL 4-6 Last administered on 07/13/17 21:09; Admin Dose 1 TAB; Start 07/12/17 at 13:30 Morphine Sulfate (morphine) 2 mg Q4H PRN IV SEVERE PAIN LEVEL 7-10; Start at 13:30 Docusate Sodium (Colace) 100 mg Q12H PRN PO CONSTIPATION; Start 07/12/17 at 13 :30 Magnesium Hydroxide (Milk Of Mag) 30 ml DAILY PRN PO CONSTIPATION Last administered on 07/14/17 17:37; Admin Dose 30 ML; Start 07/12/17 at 13:30 Sodium Biphosphate/ Sodium Phosphate (Fleet Enema) 133 ml DAILY PRN [place] CONSTIPATION; Start 07/12/17 at 13:30 Heparin Sodium (Porcine) (Heparin (5000 Units/0.5 ml)) 5,000 unit Q12 SC Last administered on 07/15/17 09:47; Admin Dose 5,000 UNIT; Start 07/12/17 at 21: 00 Lorazepam 0.5 mg 0.5 mg Q6H PRN IV ANXIETY; Start 07/12/17 at 13:30 Sodium Chloride (NS) 1,000 ml @ 100 mls/hr Q10H IV Last administered on 06:25; Admin Dose 100 MLS/HR; Start 07/12/17 at 13:20 Hydralazine HCl (Apresoline) 10 mg Q6H PRN IV ELEVATED BLOOD PRESSURE; Start 07/12/17 at 13:30 Clonidine (Catapres) 0.1 mg Q6H PRN PO ELEVATED BLOOD PRESSURE Last administered on 07/14/17 08:24; Admin Dose 0.1 MG; Start 07/12/17 at 13:30 Nitroglycerin (Nitroglycerin (Sl Tab) 0.4 Mg) 1 tab Q5M PRN SL ANGINA; Start 07/12/17 at 13:30 Diagnostic Test (Pha) (Accu-Chek) 1 ea 02 XX Last administered on 07/13/17 01 :15; Admin Dose 1 EA; Start 07/13/17 at 02:00 Miscellaneous Information 1 ea NOTE XX ; Start 07/12/17 at 14:00 Glucose (Glutose) 15 gm Q15M PRN PO DECREASED GLUCOSE; Start 07/12/17 at 14:00 Glucose (Glutose) 22.5 gm Q15M PRN PO DECREASED GLUCOSE; Start 07/12/17 at 14: 00 Dextrose (D50w Syringe) 25 ml Q15M PRN IV DECREASED GLUCOSE; Start 07/12/17 at 14:00 Dextrose (D50w Syringe) 50 ml Q15M PRN IV DECREASED GLUCOSE; Start 07/12/17 at 14:00 Glucagon (Glucagen) 1 mg Q15M PRN IM DECREASED GLUCOSE; Start 07/12/17 at 14: 00 Glucose (Glutose) 15 gm Q15M PRN BUCCAL DECREASED GLUCOSE; Start 07/12/17 at 14:00 Atorvastatin Calcium (Lipitor) 10 mg QHS PO Last administered on 07/14/17 20: 35; Admin Dose 10 MG; Start 07/14/17 at 21:00 Lisinopril 2.5 mg 2.5 mg DAILY PO Last administered on 07/15/17 09:17; Admin Dose 2.5 MG; Start 07/15/17 at 09:00 Ertapenem/Sodium Chloride (Invanz/NS) 100 ml @ 200 mls/hr Q24H IVPB ; Start at 12:00 Assessment/Plan Chief Complaint/Hosp Course SUBJECTIVE: No acute changes overnight. The patient is awake, feels ok, no fevers MICROBIOLOGY: Urine culture growing E coli ESBL ANTIMICROBIALS: Invanz PHYSICAL EXAMINATION: GENERAL: Well-developed, elderly man in no distress. HEENT: Head atraumatic, normocephalic. Sclerae anicteric. Buccal mucosa pink , dry. NECK: Supple. CHEST: Rise symmetrical. Breath sounds clear, diminished to bases. HEART: S1, S2. ABDOMEN: Soft. Bowel sounds present. ASSESSMENT: 1. Systemic inflammatory response syndrome. 2. Urinary tract infection with evidence of left epididymitis. 3. Questionable epididymis, lesion or mass as per ultrasound. 4. Diabetes. 5. Hypertension. PLAN: The patient remains stable, antibiotics changed per urine cx. Continue present care. Consider urology evaluation. Problems: JOSÉ MIGUEL CASPER NP Jul 15, 2017 12:56
[2017-07-15] MEDS: ERTAPENEM SODIUM 1 GM in SOD CHLORIDE 0.9% 100 ML IVPB SCH (14:00)
--- NOTE | 2017-07-15 14:35 | PN ---
Date/Time of Note Date/Time of Note DATE: 07/15/17 TIME: 14:28 Assessment/Plan VTE Prophylaxis VTE Prophylaxis Intervention: SCD's Lines/Catheters IV Catheter Type (from Nrsg): Saline Lock Urinary Cath still in place: No Assessment/Plan Assessment/Plan 1. Left epididymis with scrotal cellulitis- improving - ID on board and recommendations appreciated. Patient growing ESBL and started on Ertapenem. Will place PICC line given will need 10-14 days of antibiotics - Urology consulted in ED and recommended conservative management for now - Tolerating diet - pain control - Will need repeat US of testicle once antibiotic therapy completed 2. UTI - on Ertapenem after cultures showed ESBL - Denies any urinary complaints 3. HTN - BP stable 4. DM - A1c 6.2 - Continue with ISS and accuchecks - sugars well controlled 5. Disposition - will arrange for PICC placement and HH for antibiotics Subjective 24 Hr Interval Summary Free Text/Dictation Patient doing well and states pain is improving. Still has discomfort with ambulation but pain well controlled with Tylenol. Denies any fevers, chills, nausea, vomiting, or abdominal issues. Exam/Review of Systems Vital Signs Vitals Vital Signs Date Time Temp Pulse Resp B/P Pulse Ox O2 Delivery O2 Flow Rate FiO2 07/15/17 07:41 98.2 66 18 168/77 99 07/12/17 13:36 Room Air Intake and Output 07/14/17 07/14/17 07/15/17 15:00 23:00 07:00 Intake Total 250 ml 2730 ml 1670 ml Output Total 2400 ml 3375 ml Balance 250 ml 330 ml -1705 ml Exam GENERAL: NAD, awake and alert. lying in bed comfortably HEENT: Pupils equal, round, react to light. Extraocular muscles intact. NECK: Supple. LUNGS: Clear auscultation bilaterally. no wheezes, rales, rhonchi CARDIOVASCULAR: S1, S2 heard. No rubs, gallops, or murmurs ABDOMEN: Soft, nontender, nondistended. Normal bowel sounds. No rebound or guarding. MUSCULOSKELETAL: No lower extremity bilaterally. NEUROLOGIC: No focal deficits. GENITOURINARY: Improvement in swelling left testicle, softer compared to yesterday, no pain with palpation Results Result Diagram: 10/18/17 0530 10/18/17 0530 Results 24 hrs Laboratory Tests Test 07/14/17 17:30 07/14/17 20:34 07/15/17 05:30 07/15/17 07:58 Bedside Glucose 167 156 111 White Blood Count 11.4 H Red Blood Count 4.11 L Hemoglobin 11.5 L Hematocrit 33.9 L Mean Corpuscular Volume 82.5 Mean Corpuscular Hemoglobin 28.0 L Mean Corpuscular Hemoglobin Concent 33.9 Red Cell Distribution Width 13.4 Platelet Count 232 # Mean Platelet Volume 9.8 Neutrophils % 68.8 Lymphocytes % 15.5 Monocytes % 10.7 Eosinophils % 3.7 Basophils % 0.4 Nucleated Red Blood Cells % 0.0 Neutrophils # 7.9 H Lymphocytes # 1.8 Monocytes # 1.2 H Eosinophils # 0.4 Basophils # 0.1 Nucleated Red Blood Cells # 0.0 Sodium Level 138 Potassium Level 3.9 Chloride Level 103 Carbon Dioxide Level 27 Anion Gap 12 Blood Urea Nitrogen 9 Creatinine 0.66 Glucose Level 115 Calcium Level 8.6 Magnesium Level 1.8 Test 07/15/17 12:28 Bedside Glucose 136 Medications Medications Current Medications Ondansetron HCl (Zofran Inj) 4 mg Q6H PRN IV NAUSEA AND/OR VOMITING; Start at 13:30 Acetaminophen (Tylenol Tab) 650 mg Q6H PRN PO PAIN LEVEL 1-3 OR FEVER Last administered on 07/15/17 06:21; Admin Dose 650 MG; Start 07/12/17 at 13:30 Acetaminophen/ Hydrocodone Bitart ([place] (5/325)) 1 tab Q6H PRN PO MODERATE PAIN LEVEL 4-6 Last administered on 07/13/17 21:09; Admin Dose 1 TAB; Start 07/12/17 at 13:30 Morphine Sulfate (morphine) 2 mg Q4H PRN IV SEVERE PAIN LEVEL 7-10; Start at 13:30 Docusate Sodium (Colace) 100 mg Q12H PRN PO CONSTIPATION; Start 07/12/17 at 13 :30 Magnesium Hydroxide (Milk Of Mag) 30 ml DAILY PRN PO CONSTIPATION Last administered on 07/14/17 17:37; Admin Dose 30 ML; Start 07/12/17 at 13:30 Sodium Biphosphate/ Sodium Phosphate (Fleet Enema) 133 ml DAILY PRN [place] CONSTIPATION; Start 07/12/17 at 13:30 Heparin Sodium (Porcine) (Heparin (5000 Units/0.5 ml)) 5,000 unit Q12 SC Last administered on 07/15/17 09:47; Admin Dose 5,000 UNIT; Start 07/12/17 at 21: 00 Lorazepam 0.5 mg 0.5 mg Q6H PRN IV ANXIETY; Start 07/12/17 at 13:30 Sodium Chloride (NS) 1,000 ml @ 100 mls/hr Q10H IV Last administered on 06:25; Admin Dose 100 MLS/HR; Start 07/12/17 at 13:20 Hydralazine HCl (Apresoline) 10 mg Q6H PRN IV ELEVATED BLOOD PRESSURE; Start 07/12/17 at 13:30 Clonidine (Catapres) 0.1 mg Q6H PRN PO ELEVATED BLOOD PRESSURE Last administered on 07/14/17 08:24; Admin Dose 0.1 MG; Start 07/12/17 at 13:30 Nitroglycerin (Nitroglycerin (Sl Tab) 0.4 Mg) 1 tab Q5M PRN SL ANGINA; Start 07/12/17 at 13:30 Diagnostic Test (Pha) (Accu-Chek) 1 ea 02 XX Last administered on 07/13/17 01 :15; Admin Dose 1 EA; Start 07/13/17 at 02:00 Miscellaneous Information 1 ea NOTE XX ; Start 07/12/17 at 14:00 Glucose (Glutose) 15 gm Q15M PRN PO DECREASED GLUCOSE; Start 07/12/17 at 14:00 Glucose (Glutose) 22.5 gm Q15M PRN PO DECREASED GLUCOSE; Start 07/12/17 at 14: 00 Dextrose (D50w Syringe) 25 ml Q15M PRN IV DECREASED GLUCOSE; Start 07/12/17 at 14:00 Dextrose (D50w Syringe) 50 ml Q15M PRN IV DECREASED GLUCOSE; Start 07/12/17 at 14:00 Glucagon (Glucagen) 1 mg Q15M PRN IM DECREASED GLUCOSE; Start 07/12/17 at 14: 00 Glucose (Glutose) 15 gm Q15M PRN BUCCAL DECREASED GLUCOSE; Start 07/12/17 at 14:00 Atorvastatin Calcium (Lipitor) 10 mg QHS PO Last administered on 07/14/17 20: 35; Admin Dose 10 MG; Start 07/14/17 at 21:00 Lisinopril 2.5 mg 2.5 mg DAILY PO Last administered on 07/15/17 09:17; Admin Dose 2.5 MG; Start 07/15/17 at 09:00 Ertapenem/Sodium Chloride (Invanz/NS) 100 ml @ 200 mls/hr Q24H IVPB Last administered on 07/15/17 14:00; Admin Dose 200 MLS/HR; Start 07/15/17 at 12: 00 MATHEW OLMOS MD Jul 15, 2017 14:35
[2017-07-15 14:40] VITALS: BP 174/79; RESP 18
[2017-07-15] MEDS ORDERED: LIDOCAINE 1% (MPF) 5 ML VIAL SC ONE (15:00)
[2017-07-15 20:21] VITALS: BP 172/81; RESP 18
[2017-07-15] MEDS: HYDROCODONE/APAP (5/325) TAB PO PRN (20:40)
[2017-07-15] MEDS: ATORVASTATIN 10 MG TAB PO SCH (20:40)
[2017-07-16] MEDS: ACCU-CHEK XX SCH (01:56)
[2017-07-16 02:20] VITALS: BP 172/81; RESP 18
[2017-07-16 03:10] VITALS: BP 164/72
[2017-07-16] MEDS: SOD CHLORIDE 0.9% 1,000 ML IV SCH ×3 (03:50→17:11)
[2017-07-16 06:28] LABS: BASOPHILS % 0.4 % (0.0-2.0); EOSINOPHILS # 0.5 10^3/ul (0.0-0.5); EOSINOPHILS % 4.9 % (0.0-7.0); HEMOGLOBIN 11.3 g/dl (14.0-18.0); LYMPHOCYTES # 2.4 10^3/ul (0.8-2.9); MEAN CORPUSCULAR HEMOGLOBIN 28.1 pg (29.0-33.0); MEAN CORPUSCULAR HGB CONC 34.2 g/dl (32.0-37.0); MEAN CORPUSCULAR VOLUME 82.1 fl (82.0-101.0); MEAN PLATELET VOLUME 9.9 fl (7.4-10.4); MONOCYTE # 0.9 10^3/ul (0.3-0.9); MONOCYTES % 8.6 % (0.0-11.0); NEUTROPHIL # 6.7 10^3/ul (1.6-7.5); PLATELET COUNT 253 10^3/UL (140-415); RED BLOOD COUNT 4.02 10^6/ul (4.70-6.10); RED CELL DISTRIBUTION WIDTH 13.3 % (11.5-14.5); WHITE BLOOD COUNT 10.7 10^3/ul (4.8-10.8)
[2017-07-16 07:09] LABS: CREATININE 0.6 mg/dl (0.61-1.24); POTASSIUM 3.9 mmol/L (3.5-5.1)
[2017-07-16 08:00] VITALS: BP 160/68; RESP 18
[2017-07-16] MEDS: Insulin NOVOLOG SS MILD Algorithm (SS with meals and bedtime) SC SCH ×4 (08:00→20:05)
[2017-07-16] MEDS: LISINOPRIL 5 MG TAB PO SCH (08:13)
[2017-07-16] MEDS: HEPARIN 5,000 UNIT/0.5 ML VIAL SC SCH ×2 (08:17→20:08)
[2017-07-16] MEDS ORDERED: LIDOCAINE 1% (MPF) 5 ML VIAL SC ONE (09:00)
[2017-07-16] MEDS: HYDROCODONE/APAP (5/325) TAB PO PRN (10:43)
[2017-07-16] MEDS: ERTAPENEM SODIUM 1 GM in SOD CHLORIDE 0.9% 100 ML IVPB SCH (12:14)
[2017-07-16 13:59] VITALS: BP 120/58; RESP 18
--- NOTE | 2017-07-16 15:14 | RADRPT ---
PROCEDURE: XR Chest. CLINICAL INDICATION: PICC line placement TECHNIQUE: Single frontal view of the chest was obtained COMPARISON: None FINDINGS: There is a new left-sided PICC line in place with its tip overlying the cavoatrial junction. The heart, mediastinum, and lungs are within normal limits. The heart is normal in size. There is no focal infiltrate.. RPTAT: AA IMPRESSION: New PICC line in appropriate position. .Ricardo Lala MD, MD Date Time Electronically viewed and signed by .Ricardo Lala MD, on 07/16/2017 15:13 .S/
--- NOTE | 2017-07-16 15:14 | RADRPT ---
PROCEDURE: US guidance for PICC line CLINICAL INDICATION: PICC line placement TECHNIQUE: Multiple real-time images were acquired of the patient's arm utilizing a high resolutio n transducer. This was performed by the PICC line nurse for venous access. COMPARISON: None FINDINGS: Ultrasound guidance for PICC line placement. IMPRESSION: Ultrasound guidance for PICC line placement. RPTAT: AA .Ricardo Lala MD, MD Date Time Electronically viewed and signed by .Ricardo Lala MD, on 07/16/2017 15:14 .S/
--- NOTE | 2017-07-16 15:34 | PN ---
Date/Time of Note Date/Time of Note DATE: 07/16/17 TIME: 15:31 Assessment/Plan VTE Prophylaxis VTE Prophylaxis Intervention: ambulation Lines/Catheters IV Catheter Type (from Nrsg): Peripheral IV Urinary Cath still in place: No Assessment/Plan Assessment/Plan 1. Left epididymis with scrotal cellulitis- resolving - ID on board and recommendations appreciated. Patient growing ESBL and started on Ertapenem. PICC line placement today with anticipation of 14 days of Ertapenem - Urology consulted in ED and recommended conservative management for now - Tolerating diet - pain control - Will need repeat US of testicle once antibiotic therapy completed - WBC normalized and remains afebrile 2. UTI - on Ertapenem after cultures showed ESBL - Denies any urinary complaints 3. HTN - BP stable 4. DM - A1c 6.2 - Continue with ISS and accuchecks - sugars well controlled 5. Disposition - CM contacted regarding HH for antibiotics - Once arranged will be stable for discharge Subjective 24 Hr Interval Summary Free Text/Dictation Patient doing well and states pain controlled with Tylenol and needing [place] at times. Still experiencing difficulty with ambulation but denies any new complaints, fevers, difficulty urinating, and no acute overnight events. Plans for PICC line insertion today. Exam/Review of Systems Vital Signs Vitals Vital Signs Date Time Temp Pulse Resp B/P Pulse Ox O2 Delivery O2 Flow Rate FiO2 07/16/17 13:59 97.8 66 18 120/58 100 07/12/17 13:36 Room Air Intake and Output 07/15/17 07/15/17 07/16/17 15:00 23:00 07:00 Intake Total 100 ml 2320 ml 1670 ml Output Total 1400 ml 1825 ml Balance 100 ml 920 ml -155 ml Exam GENERAL: NAD, awake and alert. lying in bed comfortably HEENT: Pupils equal, round, react to light. Extraocular muscles intact. NECK: Supple. LUNGS: Clear auscultation bilaterally. no wheezes, rales, rhonchi CARDIOVASCULAR: S1, S2 heard. No rubs, gallops, or murmurs ABDOMEN: Soft, nontender, nondistended. Normal bowel sounds. No rebound or guarding. MUSCULOSKELETAL: No lower extremity bilaterally. NEUROLOGIC: No focal deficits. GENITOURINARY: right testicle swelling improved, no discharge, no pain with palpation Results Result Diagram: 07/16/17 0528 07/16/17 0528 Results 24 hrs Laboratory Tests Test 07/15/17 17:16 07/15/17 20:33 07/16/17 05:28 07/16/17 08:13 Bedside Glucose 139 138 109 White Blood Count 10.7 Red Blood Count 4.02 L Hemoglobin 11.3 L Hematocrit 33.0 L Mean Corpuscular Volume 82.1 Mean Corpuscular Hemoglobin 28.1 L Mean Corpuscular Hemoglobin Concent 34.2 Red Cell Distribution Width 13.3 Platelet Count 253 Mean Platelet Volume 9.9 Neutrophils % 63.0 Lymphocytes % 22.0 Monocytes % 8.6 Eosinophils % 4.9 Basophils % 0.4 Nucleated Red Blood Cells % 0.0 Neutrophils # 6.7 Lymphocytes # 2.4 Monocytes # 0.9 Eosinophils # 0.5 Basophils # 0.0 Nucleated Red Blood Cells # 0.0 Sodium Level 139 Potassium Level 3.9 Chloride Level 103 Carbon Dioxide Level 27 Anion Gap 13 Blood Urea Nitrogen 9 Creatinine 0.60 L Glucose Level 112 Calcium Level 9.0 Magnesium Level 1.7 Test 07/16/17 12:15 Bedside Glucose 206 Medications Medications Current Medications Ondansetron HCl (Zofran Inj) 4 mg Q6H PRN IV NAUSEA AND/OR VOMITING; Start at 13:30 Acetaminophen (Tylenol Tab) 650 mg Q6H PRN PO PAIN LEVEL 1-3 OR FEVER Last administered on 07/15/17 06:21; Admin Dose 650 MG; Start 07/12/17 at 13:30 Acetaminophen/ Hydrocodone Bitart ([place] (5/325)) 1 tab Q6H PRN PO MODERATE PAIN LEVEL 4-6 Last administered on 07/16/17 10:43; Admin Dose 1 TAB; Start 07/12/17 at 13:30 Morphine Sulfate (morphine) 2 mg Q4H PRN IV SEVERE PAIN LEVEL 7-10; Start at 13:30 Docusate Sodium (Colace) 100 mg Q12H PRN PO CONSTIPATION Last administered on 07/15/17 17:19; Admin Dose 100 MG; Start 07/12/17 at 13:30 Magnesium Hydroxide (Milk Of Mag) 30 ml DAILY PRN PO CONSTIPATION Last administered on 07/14/17 17:37; Admin Dose 30 ML; Start 07/12/17 at 13:30 Sodium Biphosphate/ Sodium Phosphate (Fleet Enema) 133 ml DAILY PRN [place] CONSTIPATION; Start 07/12/17 at 13:30 Heparin Sodium (Porcine) (Heparin (5000 Units/0.5 ml)) 5,000 unit Q12 SC Last administered on 07/16/17 08:17; Admin Dose 5,000 UNIT; Start 07/12/17 at 21: 00 Lorazepam 0.5 mg 0.5 mg Q6H PRN IV ANXIETY; Start 07/12/17 at 13:30 Sodium Chloride (NS) 1,000 ml @ 100 mls/hr Q10H IV Last administered on 03:50; Admin Dose 100 MLS/HR; Start 07/12/17 at 13:20 Hydralazine HCl (Apresoline) 10 mg Q6H PRN IV ELEVATED BLOOD PRESSURE; Start 07/12/17 at 13:30 Clonidine (Catapres) 0.1 mg Q6H PRN PO ELEVATED BLOOD PRESSURE Last administered on 07/16/17 01:55; Admin Dose 0.1 MG; Start 07/12/17 at 13:30 Nitroglycerin (Nitroglycerin (Sl Tab) 0.4 Mg) 1 tab Q5M PRN SL ANGINA; Start 07/12/17 at 13:30 Diagnostic Test (Pha) (Accu-Chek) 1 ea 02 XX Last administered on 07/13/17 01 :15; Admin Dose 1 EA; Start 07/13/17 at 02:00 Miscellaneous Information 1 ea NOTE XX ; Start 07/12/17 at 14:00 Glucose (Glutose) 15 gm Q15M PRN PO DECREASED GLUCOSE; Start 07/12/17 at 14:00 Glucose (Glutose) 22.5 gm Q15M PRN PO DECREASED GLUCOSE; Start 07/12/17 at 14: 00 Dextrose (D50w Syringe) 25 ml Q15M PRN IV DECREASED GLUCOSE; Start 07/12/17 at 14:00 Dextrose (D50w Syringe) 50 ml Q15M PRN IV DECREASED GLUCOSE; Start 07/12/17 at 14:00 Glucagon (Glucagen) 1 mg Q15M PRN IM DECREASED GLUCOSE; Start 07/12/17 at 14: 00 Glucose (Glutose) 15 gm Q15M PRN BUCCAL DECREASED GLUCOSE; Start 07/12/17 at 14:00 Atorvastatin Calcium (Lipitor) 10 mg QHS PO Last administered on 07/15/17 20: 40; Admin Dose 10 MG; Start 07/14/17 at 21:00 Lisinopril 2.5 mg 2.5 mg DAILY PO Last administered on 07/16/17 08:13; Admin Dose 2.5 MG; Start 07/15/17 at 09:00 Ertapenem/Sodium Chloride (Invanz/NS) 100 ml @ 200 mls/hr Q24H IVPB Last administered on 07/16/17 12:14; Admin Dose 200 MLS/HR; Start 07/15/17 at 12: 00 MATHEW OLMOS MD Jul 16, 2017 15:34
[2017-07-16] MEDS ORDERED: SOD CHLORIDE 0.9% 100 ML ONE (15:39)
[2017-07-16 20:00] VITALS: BP 191/86; RESP 18
[2017-07-16] MEDS: ATORVASTATIN 10 MG TAB PO SCH (20:08)
[2017-07-16 21:30] VITALS: BP 124/58; PULSE 66
--- NOTE | 2017-07-16 21:33 | CONS ---
Date/Time of Note Date/Time of Note DATE: 07/16/17 TIME: 21:32 Consult Date/Type/Reason Admit Date/Time Jul 12, 2017 at 13:09 Type of Consultation: ID Objective Vital Signs Date Time Temp Pulse Resp B/P Pulse Ox O2 Delivery O2 Flow Rate FiO2 07/16/17 13:59 97.8 66 18 120/58 100 07/12/17 13:36 Room Air Intake and Output 07/15/17 07/15/17 07/16/17 15:00 23:00 07:00 Intake Total 100 ml 2320 ml 1670 ml Output Total 1400 ml 1825 ml Balance 100 ml 920 ml -155 ml Results/Medications Result Diagram: 07/16/17 0528 07/16/17 0528 Results 24 hrs Laboratory Tests Test 07/16/17 05:28 07/16/17 08:13 07/16/17 12:15 07/16/17 17:11 White Blood Count 10.7 Red Blood Count 4.02 L Hemoglobin 11.3 L Hematocrit 33.0 L Mean Corpuscular Volume 82.1 Mean Corpuscular Hemoglobin 28.1 L Mean Corpuscular Hemoglobin Concent 34.2 Red Cell Distribution Width 13.3 Platelet Count 253 Mean Platelet Volume 9.9 Neutrophils % 63.0 Lymphocytes % 22.0 Monocytes % 8.6 Eosinophils % 4.9 Basophils % 0.4 Nucleated Red Blood Cells % 0.0 Neutrophils # 6.7 Lymphocytes # 2.4 Monocytes # 0.9 Eosinophils # 0.5 Basophils # 0.0 Nucleated Red Blood Cells # 0.0 Sodium Level 139 Potassium Level 3.9 Chloride Level 103 Carbon Dioxide Level 27 Anion Gap 13 Blood Urea Nitrogen 9 Creatinine 0.60 L Glucose Level 112 Calcium Level 9.0 Magnesium Level 1.7 Bedside Glucose 109 206 132 Test 07/16/17 20:02 Bedside Glucose 189 Medications Current Medications Ondansetron HCl (Zofran Inj) 4 mg Q6H PRN IV NAUSEA AND/OR VOMITING; Start at 13:30 Acetaminophen (Tylenol Tab) 650 mg Q6H PRN PO PAIN LEVEL 1-3 OR FEVER Last administered on 07/15/17t 06:21; Admin Dose 650 MG; Start 07/12/17 at 13:30 Acetaminophen/ Hydrocodone Bitart ([place] (5/325)) 1 tab Q6H PRN PO MODERATE PAIN LEVEL 4-6 Last administered on 07/16/17 10:43; Admin Dose 1 TAB; Start 07/12/17 at 13:30 Morphine Sulfate (morphine) 2 mg Q4H PRN IV SEVERE PAIN LEVEL 7-10; Start at 13:30 Docusate Sodium (Colace) 100 mg Q12H PRN PO CONSTIPATION Last administered on 07/15/17 17:19; Admin Dose 100 MG; Start 07/12/17 at 13:30 Magnesium Hydroxide (Milk Of Mag) 30 ml DAILY PRN PO CONSTIPATION Last administered on 07/14/17 17:37; Admin Dose 30 ML; Start 07/12/17 at 13:30 Sodium Biphosphate/ Sodium Phosphate (Fleet Enema) 133 ml DAILY PRN [place] CONSTIPATION; Start 07/12/17 at 13:30 Heparin Sodium (Porcine) (Heparin (5000 Units/0.5 ml)) 5,000 unit Q12 SC Last administered on 07/16/17 20:08; Admin Dose 5,000 UNIT; Start 07/12/17 at 21: 00 Lorazepam 0.5 mg 0.5 mg Q6H PRN IV ANXIETY; Start 07/12/17 at 13:30 Sodium Chloride (NS) 1,000 ml @ 100 mls/hr Q10H IV Last administered on 17:11; Admin Dose 100 MLS/HR; Start 07/12/17 at 13:20 Hydralazine HCl (Apresoline) 10 mg Q6H PRN IV ELEVATED BLOOD PRESSURE; Start 07/12/17 at 13:30 Clonidine (Catapres) 0.1 mg Q6H PRN PO ELEVATED BLOOD PRESSURE Last administered on 07/16/17 20:00; Admin Dose 0.1 MG; Start 07/12/17 at 13:30 Nitroglycerin (Nitroglycerin (Sl Tab) 0.4 Mg) 1 tab Q5M PRN SL ANGINA; Start 07/12/17 at 13:30 Diagnostic Test (Pha) (Accu-Chek) 1 ea 02 XX Last administered on 07/13/17 01 :15; Admin Dose 1 EA; Start 07/13/17 at 02:00 Miscellaneous Information 1 ea NOTE XX ; Start 07/12/17 at 14:00 Glucose (Glutose) 15 gm Q15M PRN PO DECREASED GLUCOSE; Start 07/12/17 at 14:00 Glucose (Glutose) 22.5 gm Q15M PRN PO DECREASED GLUCOSE; Start 07/12/17 at 14: 00 Dextrose (D50w Syringe) 25 ml Q15M PRN IV DECREASED GLUCOSE; Start 07/12/17 at 14:00 Dextrose (D50w Syringe) 50 ml Q15M PRN IV DECREASED GLUCOSE; Start 07/12/17 at 14:00 Glucagon (Glucagen) 1 mg Q15M PRN IM DECREASED GLUCOSE; Start 07/12/17 at 14: 00 Glucose (Glutose) 15 gm Q15M PRN BUCCAL DECREASED GLUCOSE; Start 07/12/17 at 14:00 Atorvastatin Calcium (Lipitor) 10 mg QHS PO Last administered on 07/16/17 20: 08; Admin Dose 10 MG; Start 07/14/17 at 21:00 Lisinopril 2.5 mg 2.5 mg DAILY PO Last administered on 07/16/17 08:13; Admin Dose 2.5 MG; Start 07/15/17 at 09:00 Ertapenem/Sodium Chloride (Invanz/NS) 100 ml @ 200 mls/hr Q24H IVPB Last administered on 07/16/17 12:14; Admin Dose 200 MLS/HR; Start 07/15/17 at 12: 00 IV Flush (NS 10 ml) 10 ml PRN PRN IV IV PROTOCOL; Start 07/16/17 at 16:00 Assessment/Plan Chief Complaint/Hosp Course SUBJECTIVE: No acute changes overnight. The patient is awake, feels better, no fevers MICROBIOLOGY: Urine culture growing E coli ESBL ANTIMICROBIALS: Invanz PHYSICAL EXAMINATION: GENERAL: Well-developed, elderly man in no distress. HEENT: Head atraumatic, normocephalic. Sclerae anicteric. Buccal mucosa pink , dry. NECK: Supple. CHEST: Rise symmetrical. Breath sounds clear, diminished to bases. HEART: S1, S2. ABDOMEN: Soft. Bowel sounds present. ASSESSMENT: 1. Systemic inflammatory response syndrome. 2. Urinary tract infection with evidence of left epididymitis. 3. Questionable epididymis, lesion or mass as per ultrasound. 4. Diabetes. 5. Hypertension. PLAN: The patient remains stable, pending PICC, continue present care, complete 2 weeks abx. Problems: ISMAIL-ZADE,NERA DATA ANALYSIS ASSISTANT Jul 16, 2017 21:33
[2017-07-17] VITALS (7 sets, daily range): BP systolic 119–182; BP diastolic 57–79; PULSE 58–69; RESP 16–18
[2017-07-17] MEDS: ACCU-CHEK XX SCH (02:47)
[2017-07-17] MEDS: SOD CHLORIDE 0.9% 1,000 ML IV SCH (02:54)
[2017-07-17 05:57] LABS: BASOPHILS % 0.2 % (0.0-2.0); EOSINOPHILS # 0.7 10^3/ul (0.0-0.5); EOSINOPHILS % 7.4 % (0.0-7.0); HEMATOCRIT 32.8 % (42.0-52.0); HEMOGLOBIN 10.9 g/dl (14.0-18.0); LYMPHOCYTES # 1.9 10^3/ul (0.8-2.9); LYMPHOCYTES % 21.6 % (15.0-51.0); MEAN CORPUSCULAR HEMOGLOBIN 27.3 pg (29.0-33.0); MEAN CORPUSCULAR HGB CONC 33.2 g/dl (32.0-37.0); MEAN PLATELET VOLUME 10.2 fl (7.4-10.4); MONOCYTE # 0.8 10^3/ul (0.3-0.9); MONOCYTES % 8.5 % (0.0-11.0); NEUTROPHIL # 5.5 10^3/ul (1.6-7.5); NEUTROPHILS % 61.4 % (39.0-77.0); PLATELET COUNT 249 10^3/UL (140-415); RED CELL DISTRIBUTION WIDTH 13.7 % (11.5-14.5); WHITE BLOOD COUNT 8.9 10^3/ul (4.8-10.8)
[2017-07-17 06:41] LABS: CALCIUM 8.6 mg/dl (8.4-10.2); CREATININE 0.62 mg/dl (0.61-1.24)
[2017-07-17] MEDS: Insulin NOVOLOG SS MILD Algorithm (SS with meals and bedtime) SC SCH ×4 (08:00→21:15)
[2017-07-17] MEDS: LISINOPRIL 5 MG TAB PO SCH (08:10)
[2017-07-17] MEDS: HEPARIN 5,000 UNIT/0.5 ML VIAL SC SCH ×2 (08:14→21:15)
--- NOTE | 2017-07-17 09:53 | PN ---
Date/Time of Note Date/Time of Note DATE: 07/17/17 TIME: 09:41 Assessment/Plan VTE Prophylaxis VTE Prophylaxis Intervention: heparin Lines/Catheters IV Catheter Type (from Nrsg): PICC Line Central line still needed: Yes (outpt IV antibiotics) Urinary Cath still in place: No Assessment/Plan Assessment/Plan 1. Left epididymis with scrotal cellulitis- resolving - ID on board and recommendations appreciated. Patient growing ESBL and plans for 14 day course of Ertapenem. PICC line placed yesterday - Urology consulted in ED and recommended conservative management for now - Tolerating diet - pain control - Will need repeat US of testicle once antibiotic therapy completed - WBC normalized and remains afebrile 2. UTI - on Ertapenem after cultures showed ESBL - Denies any urinary complaints 3. HTN - BP stable 4. DM - A1c 6.2 - Continue with ISS and accuchecks - sugars well controlled 5. Disposition - CM contacted regarding HH for antibiotics - Once arranged will be stable for discharge Subjective 24 Hr Interval Summary Free Text/Dictation Patient states doing well and having minimal pain in right testicle. PICC line in place and no complaints. No acute overnight events. Exam/Review of Systems Vital Signs Vitals Vital Signs Date Time Temp Pulse Resp B/P Pulse Ox O2 Delivery O2 Flow Rate FiO2 07/17/17 07:32 98.0 55 18 161/72 98 Intake and Output 07/16/17 07/16/17 07/17/17 15:00 23:00 07:00 Intake Total 2140 ml 2240 ml Output Total 2700 ml Balance 2140 ml -460 ml Exam GENERAL: NAD, awake and alert. ambulating around room HEENT: Pupils equal, round, react to light. Extraocular muscles intact. NECK: Supple. LUNGS: Clear auscultation bilaterally. no wheezes, rales, rhonchi CARDIOVASCULAR: S1, S2 heard. No rubs, gallops, or murmurs ABDOMEN: Soft, nontender, nondistended. Normal bowel sounds. No rebound or guarding. MUSCULOSKELETAL: No lower extremity bilaterally. NEUROLOGIC: No focal deficits. GENITOURINARY: right testicle slightly swollen, no discharge, no pain with palpation Results Result Diagram: 07/17/17 0513 07/17/17 0513 Results 24 hrs Laboratory Tests Test 07/16/17 12:15 07/16/17 17:11 07/16/17 20:02 07/17/17 02:52 Bedside Glucose 206 132 189 116 Test 07/17/17 05:13 07/17/17 08:09 White Blood Count 8.9 Red Blood Count 4.00 L Hemoglobin 10.9 L Hematocrit 32.8 L Mean Corpuscular Volume 82.0 Mean Corpuscular Hemoglobin 27.3 L Mean Corpuscular Hemoglobin Concent 33.2 Red Cell Distribution Width 13.7 Platelet Count 249 Mean Platelet Volume 10.2 Neutrophils % 61.4 Lymphocytes % 21.6 Monocytes % 8.5 Eosinophils % 7.4 H Basophils % 0.2 Nucleated Red Blood Cells % 0.0 Neutrophils # 5.5 Lymphocytes # 1.9 Monocytes # 0.8 Eosinophils # 0.7 H Basophils # 0.0 Nucleated Red Blood Cells # 0.0 Sodium Level 138 Potassium Level 4.0 Chloride Level 103 Carbon Dioxide Level 28 Anion Gap 11 Blood Urea Nitrogen 12 Creatinine 0.62 Glucose Level 137 Calcium Level 8.6 Bedside Glucose 131 Medications Medications Current Medications Ondansetron HCl (Zofran Inj) 4 mg Q6H PRN IV NAUSEA AND/OR VOMITING; Start at 13:30 Acetaminophen (Tylenol Tab) 650 mg Q6H PRN PO PAIN LEVEL 1-3 OR FEVER Last administered on 07/15/17 06:21; Admin Dose 650 MG; Start 07/12/17 at 13:30 Acetaminophen/ Hydrocodone Bitart ([place] (5/325)) 1 tab Q6H PRN PO MODERATE PAIN LEVEL 4-6 Last administered on 07/16/17 10:43; Admin Dose 1 TAB; Start 07/12/17 at 13:30 Morphine Sulfate (morphine) 2 mg Q4H PRN IV SEVERE PAIN LEVEL 7-10; Start at 13:30 Docusate Sodium (Colace) 100 mg Q12H PRN PO CONSTIPATION Last administered on 07/15/17 17:19; Admin Dose 100 MG; Start 07/12/17 at 13:30 Magnesium Hydroxide (Milk Of Mag) 30 ml DAILY PRN PO CONSTIPATION Last administered on 07/14/17 17:37; Admin Dose 30 ML; Start 07/12/17 at 13:30 Sodium Biphosphate/ Sodium Phosphate (Fleet Enema) 133 ml DAILY PRN [place] CONSTIPATION; Start 07/12/17 at 13:30 Heparin Sodium (Porcine) (Heparin (5000 Units/0.5 ml)) 5,000 unit Q12 SC Last administered on 07/17/17 08:14; Admin Dose 5,000 UNIT; Start 07/12/17 at 21: 00 Lorazepam 0.5 mg 0.5 mg Q6H PRN IV ANXIETY; Start 07/12/17 at 13:30 Sodium Chloride (NS) 1,000 ml @ 100 mls/hr Q10H IV Last administered on 02:54; Admin Dose 100 MLS/HR; Start 07/12/17 at 13:20 Hydralazine HCl (Apresoline) 10 mg Q6H PRN IV ELEVATED BLOOD PRESSURE; Start 07/12/17 at 13:30 Clonidine (Catapres) 0.1 mg Q6H PRN PO ELEVATED BLOOD PRESSURE Last administered on 07/17/17 02:51; Admin Dose 0.1 MG; Start 07/12/17 at 13:30 Nitroglycerin (Nitroglycerin (Sl Tab) 0.4 Mg) 1 tab Q5M PRN SL ANGINA; Start 07/12/17 at 13:30 Diagnostic Test (Pha) (Accu-Chek) 1 ea 02 XX Last administered on 07/17/17 02 :47; Admin Dose 1 EA; Start 07/13/17 at 02:00 Miscellaneous Information 1 ea NOTE XX ; Start 07/12/17 at 14:00 Glucose (Glutose) 15 gm Q15M PRN PO DECREASED GLUCOSE; Start 07/12/17 at 14:00 Glucose (Glutose) 22.5 gm Q15M PRN PO DECREASED GLUCOSE; Start 07/12/17 at 14: 00 Dextrose (D50w Syringe) 25 ml Q15M PRN IV DECREASED GLUCOSE; Start 07/12/17 at 14:00 Dextrose (D50w Syringe) 50 ml Q15M PRN IV DECREASED GLUCOSE; Start 07/12/17 at 14:00 Glucagon (Glucagen) 1 mg Q15M PRN IM DECREASED GLUCOSE; Start 07/12/17 at 14: 00 Glucose (Glutose) 15 gm Q15M PRN BUCCAL DECREASED GLUCOSE; Start 07/12/17 at 14:00 Atorvastatin Calcium (Lipitor) 10 mg QHS PO Last administered on 07/16/17 20: 08; Admin Dose 10 MG; Start 07/14/17 at 21:00 Lisinopril 2.5 mg 2.5 mg DAILY PO Last administered on 07/17/17 08:10; Admin Dose 2.5 MG; Start 07/15/17 at 09:00 Ertapenem/Sodium Chloride (Invanz/NS) 100 ml @ 200 mls/hr Q24H IVPB Last administered on 07/16/17 12:14; Admin Dose 200 MLS/HR; Start 07/15/17 at 12: 00 IV Flush (NS 10 ml) 10 ml PRN PRN IV IV PROTOCOL Last administered on 20:00; Admin Dose 10 ML; Start 07/16/17 at 16:00 MATHEW OLMOS MD Jul 17, 2017 09:52
[2017-07-17] MEDS: ERTAPENEM SODIUM 1 GM in SOD CHLORIDE 0.9% 100 ML IVPB SCH (11:51)
--- NOTE | 2017-07-17 12:38 | CONS ---
Date/Time of Note Date/Time of Note DATE: 07/17/17 TIME: 12:37 Consult Date/Type/Reason Admit Date/Time Jul 12, 2017 at 13:09 Type of Consultation: ID Objective Vital Signs Date Time Temp Pulse Resp B/P Pulse Ox O2 Delivery O2 Flow Rate FiO2 07/17/17 07:32 98.0 55 18 161/72 98 Intake and Output 07/16/17 07/16/17 07/17/17 15:00 23:00 07:00 Intake Total 2140 ml 2240 ml Output Total 2700 ml Balance 2140 ml -460 ml Results/Medications Result Diagram: 07/17/17 0513 07/17/17 0513 Results 24 hrs Laboratory Tests Test 07/16/17 17:11 07/16/17 20:02 07/17/17 02:52 07/17/17 05:13 Bedside Glucose 132 189 116 White Blood Count 8.9 Red Blood Count 4.00 L Hemoglobin 10.9 L Hematocrit 32.8 L Mean Corpuscular Volume 82.0 Mean Corpuscular Hemoglobin 27.3 L Mean Corpuscular Hemoglobin Concent 33.2 Red Cell Distribution Width 13.7 Platelet Count 249 Mean Platelet Volume 10.2 Neutrophils % 61.4 Lymphocytes % 21.6 Monocytes % 8.5 Eosinophils % 7.4 H Basophils % 0.2 Nucleated Red Blood Cells % 0.0 Neutrophils # 5.5 Lymphocytes # 1.9 Monocytes # 0.8 Eosinophils # 0.7 H Basophils # 0.0 Nucleated Red Blood Cells # 0.0 Sodium Level 138 Potassium Level 4.0 Chloride Level 103 Carbon Dioxide Level 28 Anion Gap 11 Blood Urea Nitrogen 12 Creatinine 0.62 Glucose Level 137 Calcium Level 8.6 Test 07/17/17 08:09 07/17/17 11:50 Bedside Glucose 131 171 Medications Current Medications Ondansetron HCl (Zofran Inj) 4 mg Q6H PRN IV NAUSEA AND/OR VOMITING; Start at 13:30 Acetaminophen (Tylenol Tab) 650 mg Q6H PRN PO PAIN LEVEL 1-3 OR FEVER Last administered on 07/15/17 06:21; Admin Dose 650 MG; Start 07/12/17 at 13:30 Acetaminophen/ Hydrocodone Bitart ([place] (5/325)) 1 tab Q6H PRN PO MODERATE PAIN LEVEL 4-6 Last administered on 07/16/17 10:43; Admin Dose 1 TAB; Start 07/12/17 at 13:30 Morphine Sulfate (morphine) 2 mg Q4H PRN IV SEVERE PAIN LEVEL 7-10; Start at 13:30 Docusate Sodium (Colace) 100 mg Q12H PRN PO CONSTIPATION Last administered on 07/15/17 17:19; Admin Dose 100 MG; Start 07/12/17 at 13:30 Magnesium Hydroxide (Milk Of Mag) 30 ml DAILY PRN PO CONSTIPATION Last administered on 07/14/17 17:37; Admin Dose 30 ML; Start 07/12/17 at 13:30 Sodium Biphosphate/ Sodium Phosphate (Fleet Enema) 133 ml DAILY PRN [place] CONSTIPATION; Start 07/12/17 at 13:30 Heparin Sodium (Porcine) (Heparin (5000 Units/0.5 ml)) 5,000 unit Q12 SC Last administered on 07/17/17 08:14; Admin Dose 5,000 UNIT; Start 07/12/17 at 21: 00 Lorazepam (Ativan) 0.5 mg Q6H PRN IV ANXIETY; Start 07/12/17 at 13:30 Hydralazine HCl (Apresoline) 10 mg Q6H PRN IV ELEVATED BLOOD PRESSURE; Start 07/12/17 at 13:30 Clonidine (Catapres) 0.1 mg Q6H PRN PO ELEVATED BLOOD PRESSURE Last administered on 07/17/17 02:51; Admin Dose 0.1 MG; Start 07/12/17 at 13:30 Nitroglycerin (Nitroglycerin (Sl Tab) 0.4 Mg) 1 tab Q5M PRN SL ANGINA; Start 07/12/17 at 13:30 Diagnostic Test (Pha) (Accu-Chek) 1 ea 02 XX Last administered on 07/17/17 02 :47; Admin Dose 1 EA; Start 07/13/17 at 02:00 Miscellaneous Information 1 ea NOTE XX ; Start 07/12/17 at 14:00 Glucose (Glutose) 15 gm Q15M PRN PO DECREASED GLUCOSE; Start 07/12/17 at 14:00 Glucose (Glutose) 22.5 gm Q15M PRN PO DECREASED GLUCOSE; Start 07/12/17 at 14: 00 Dextrose (D50w Syringe) 25 ml Q15M PRN IV DECREASED GLUCOSE; Start 07/12/17 at 14:00 Dextrose (D50w Syringe) 50 ml Q15M PRN IV DECREASED GLUCOSE; Start 07/12/17 at 14:00 Glucagon (Glucagen) 1 mg Q15M PRN IM DECREASED GLUCOSE; Start 07/12/17 at 14: 00 Glucose (Glutose) 15 gm Q15M PRN BUCCAL DECREASED GLUCOSE; Start 07/12/17 at 14:00 Atorvastatin Calcium (Lipitor) 10 mg QHS PO Last administered on 07/16/17 20: 08; Admin Dose 10 MG; Start 07/14/17 at 21:00 Lisinopril 2.5 mg 2.5 mg DAILY PO Last administered on 07/17/17 08:10; Admin Dose 2.5 MG; Start 07/15/17 at 09:00 Ertapenem/Sodium Chloride (Invanz/NS) 100 ml @ 200 mls/hr Q24H IVPB Last administered on 07/17/17 11:51; Admin Dose 200 MLS/HR; Start 07/15/17 at 12: 00 IV Flush (NS 10 ml) 10 ml PRN PRN IV IV PROTOCOL Last administered on 20:00; Admin Dose 10 ML; Start 07/16/17 at 16:00 Assessment/Plan Chief Complaint/Hosp Course SUBJECTIVE: No acute changes overnight. The patient is alert, feels much better, no fevers MICROBIOLOGY: Urine culture growing E coli ESBL ANTIMICROBIALS: Invanz PHYSICAL EXAMINATION: GENERAL: Well-developed, elderly man in no distress. HEENT: Head atraumatic, normocephalic. Sclerae anicteric. Buccal mucosa pink , dry. NECK: Supple. CHEST: Rise symmetrical. Breath sounds clear, diminished to bases. HEART: S1, S2. ABDOMEN: Soft. Bowel sounds present. ASSESSMENT: 1. Systemic inflammatory response syndrome. 2. Urinary tract infection with evidence of left epididymitis. 3. Questionable epididymis, lesion or mass as per ultrasound. 4. Diabetes. 5. Hypertension. PLAN: The patient remains stable, PICC placed, continue present care, complete 2 weeks abx, pending dc. SERGIO pt/family at bedside Problems: JOSÉ MIGUEL CASPER NP Jul 17, 2017 12:38
[2017-07-17] MEDS: ATORVASTATIN 10 MG TAB PO SCH (21:15)
[2017-07-17] MEDS: ACETAMINOPHEN 325 MG TAB PO PRN (21:15)
[2017-07-18] MEDS: ACCU-CHEK XX SCH (01:25)
[2017-07-18 01:30] VITALS: BP 170/80; PULSE 59; RESP 18
[2017-07-18 03:00] VITALS: BP 158/79
[2017-07-18 06:26] LABS: BASOPHILS % 0.5 % (0.0-2.0); EOSINOPHILS # 0.8 10^3/ul (0.0-0.5); EOSINOPHILS % 9.1 % (0.0-7.0); HEMATOCRIT 34.5 % (42.0-52.0); HEMOGLOBIN 11.6 g/dl (14.0-18.0); LYMPHOCYTES # 2.5 10^3/ul (0.8-2.9); LYMPHOCYTES % 30.5 % (15.0-51.0); MEAN CORPUSCULAR HEMOGLOBIN 27.9 pg (29.0-33.0); MEAN CORPUSCULAR HGB CONC 33.6 g/dl (32.0-37.0); MEAN CORPUSCULAR VOLUME 82.9 fl (82.0-101.0); MONOCYTE # 0.7 10^3/ul (0.3-0.9); MONOCYTES % 7.8 % (0.0-11.0); NEUTROPHIL # 4.3 10^3/ul (1.6-7.5); PLATELET COUNT 273 10^3/UL (140-415); RED BLOOD COUNT 4.16 10^6/ul (4.70-6.10); RED CELL DISTRIBUTION WIDTH 13.6 % (11.5-14.5); WHITE BLOOD COUNT 8.3 10^3/ul (4.8-10.8)
[2017-07-18 06:43] LABS: CALCIUM 9.2 mg/dl (8.4-10.2); CREATININE 0.6 mg/dl (0.61-1.24)
[2017-07-18 07:43] VITALS: BP 129/66; RESP 18
[2017-07-18] MEDS: Insulin NOVOLOG SS MILD Algorithm (SS with meals and bedtime) SC SCH ×2 (08:00→12:27)
[2017-07-18] MEDS: LISINOPRIL 5 MG TAB PO SCH (08:47)
[2017-07-18] MEDS: HEPARIN 5,000 UNIT/0.5 ML VIAL SC SCH (09:13)
--- NOTE | 2017-07-18 12:20 | PN ---
Date/Time of Note Date/Time of Note DATE: 07/18/17 TIME: 12:19 Assessment/Plan VTE Prophylaxis VTE Prophylaxis Intervention: heparin Lines/Catheters IV Catheter Type (from Nrsg): PICC Line Central line still needed: Yes Urinary Cath still in place: No Assessment/Plan Assessment/Plan 1. Left epididymis with scrotal cellulitis- resolving - ID on board and recommendations appreciated. Patient growing ESBL and plans for total 14 day course of Ertapenem. PICC line in place - Urology consulted in ED and recommended conservative management for now - Tolerating diet - pain control - Will need repeat US of testicle once antibiotic therapy completed - WBC normalized and remains afebrile 2. UTI - on Ertapenem after cultures showed ESBL - Denies any urinary complaints 3. HTN - BP stable 4. DM - A1c 6.2 - Continue with ISS and accuchecks - sugars well controlled - Will order glucometer 5. Disposition - will get dose of antibiotics today and then stable for discharge - HH arranged and will started antibiotics tmrw Subjective 24 Hr Interval Summary Free Text/Dictation Patient doing well and have no new complaints. No acute overnight events. Still needing [place]os[place] occasionally for pain. Exam/Review of Systems Vital Signs Vitals Vital Signs Date Time Temp Pulse Resp B/P Pulse Ox O2 Delivery O2 Flow Rate FiO2 07/18/17 07:43 97.6 59 18 129/66 99 07/18/17 01:30 Room Air Intake and Output 07/17/17 07/17/17 07/18/17 15:00 23:00 07:00 Intake Total 1900 ml 620 ml Output Total 1300 ml 550 ml Balance 600 ml 70 ml Exam GENERAL: NAD, awake and alert. ambulating around room HEENT: Pupils equal, round, react to light. Extraocular muscles intact. NECK: Supple. LUNGS: Clear auscultation bilaterally. no wheezes, rales, rhonchi CARDIOVASCULAR: S1, S2 heard. No rubs, gallops, or murmurs ABDOMEN: Soft, nontender, nondistended. Normal bowel sounds. No rebound or guarding. MUSCULOSKELETAL: No lower extremity bilaterally. NEUROLOGIC: No focal deficits. GENITOURINARY: right testicle improved, no discharge, no pain with palpation Results Result Diagram: 07/18/17 0525 07/18/17 0525 Results 24 hrs Laboratory Tests Test 07/17/17 17:18 07/17/17 20:41 07/18/17 01:25 07/18/17 05:25 Bedside Glucose 135 274 H 123 White Blood Count 8.3 Red Blood Count 4.16 L Hemoglobin 11.6 L Hematocrit 34.5 L Mean Corpuscular Volume 82.9 Mean Corpuscular Hemoglobin 27.9 L Mean Corpuscular Hemoglobin Concent 33.6 Red Cell Distribution Width 13.6 Platelet Count 273 Mean Platelet Volume 10.0 Neutrophils % 51.0 Lymphocytes % 30.5 Monocytes % 7.8 Eosinophils % 9.1 H Basophils % 0.5 Nucleated Red Blood Cells % 0.0 Neutrophils # 4.3 Lymphocytes # 2.5 Monocytes # 0.7 Eosinophils # 0.8 H Basophils # 0.0 Nucleated Red Blood Cells # 0.0 Sodium Level 140 Potassium Level 4.0 Chloride Level 103 Carbon Dioxide Level 30 Anion Gap 11 Blood Urea Nitrogen 11 Creatinine 0.60 L Glucose Level 136 Calcium Level 9.2 Test 07/18/17 08:06 07/18/17 12:14 Bedside Glucose 134 151 Medications Medications Current Medications Ondansetron HCl (Zofran Inj) 4 mg Q6H PRN IV NAUSEA AND/OR VOMITING; Start at 13:30 Acetaminophen (Tylenol Tab) 650 mg Q6H PRN PO PAIN LEVEL 1-3 OR FEVER Last administered on 07/17/17 21:15; Admin Dose 650 MG; Start 07/12/17 at 13:30 Acetaminophen/ Hydrocodone Bitart ([place] (5/325)) 1 tab Q6H PRN PO MODERATE PAIN LEVEL 4-6 Last administered on 07/16/17 10:43; Admin Dose 1 TAB; Start 07/12/17 at 13:30 Morphine Sulfate (morphine) 2 mg Q4H PRN IV SEVERE PAIN LEVEL 7-10; Start at 13:30 Docusate Sodium (Colace) 100 mg Q12H PRN PO CONSTIPATION Last administered on 07/15/17 17:19; Admin Dose 100 MG; Start 07/12/17 at 13:30 Magnesium Hydroxide (Milk Of Mag) 30 ml DAILY PRN PO CONSTIPATION Last administered on 07/14/17 17:37; Admin Dose 30 ML; Start 07/12/17 at 13:30 Sodium Biphosphate/ Sodium Phosphate (Fleet Enema) 133 ml DAILY PRN [place] CONSTIPATION; Start 07/12/17 at 13:30 Heparin Sodium (Porcine) (Heparin (5000 Units/0.5 ml)) 5,000 unit Q12 SC Last administered on 07/18/17 09:13; Admin Dose 5,000 UNIT; Start 07/12/17 at 21: 00 Lorazepam (Ativan) 0.5 mg Q6H PRN IV ANXIETY; Start 07/12/17 at 13:30 Hydralazine HCl (Apresoline) 10 mg Q6H PRN IV ELEVATED BLOOD PRESSURE; Start 07/12/17 at 13:30 Clonidine (Catapres) 0.1 mg Q6H PRN PO ELEVATED BLOOD PRESSURE Last administered on 07/18/17 01:33; Admin Dose 0.1 MG; Start 07/12/17 at 13:30 Nitroglycerin (Nitroglycerin (Sl Tab) 0.4 Mg) 1 tab Q5M PRN SL ANGINA; Start 07/12/17 at 13:30 Diagnostic Test (Pha) (Accu-Chek) 1 ea 02 XX Last administered on 07/18/17 01 :25; Admin Dose 1 EA; Start 07/13/17 at 02:00 Miscellaneous Information 1 ea NOTE XX ; Start 07/12/17 at 14:00 Glucose (Glutose) 15 gm Q15M PRN PO DECREASED GLUCOSE; Start 07/12/17 at 14:00 Glucose (Glutose) 22.5 gm Q15M PRN PO DECREASED GLUCOSE; Start 07/12/17 at 14: 00 Dextrose (D50w Syringe) 25 ml Q15M PRN IV DECREASED GLUCOSE; Start 07/12/17 at 14:00 Dextrose (D50w Syringe) 50 ml Q15M PRN IV DECREASED GLUCOSE; Start 07/12/17 at 14:00 Glucagon (Glucagen) 1 mg Q15M PRN IM DECREASED GLUCOSE; Start 07/12/17 at 14: 00 Glucose (Glutose) 15 gm Q15M PRN BUCCAL DECREASED GLUCOSE; Start 07/12/17 at 14:00 Atorvastatin Calcium (Lipitor) 10 mg QHS PO Last administered on 07/17/17 21: 15; Admin Dose 10 MG; Start 07/14/17 at 21:00 Lisinopril 2.5 mg 2.5 mg DAILY PO Last administered on 07/18/17 08:47; Admin Dose 2.5 MG; Start 07/15/17 at 09:00 Ertapenem/Sodium Chloride (Invanz/NS) 100 ml @ 200 mls/hr Q24H IVPB Last administered on 07/17/17 11:51; Admin Dose 200 MLS/HR; Start 07/15/17 at 12: 00 IV Flush (NS 10 ml) 10 ml PRN PRN IV IV PROTOCOL Last administered on 20:00; Admin Dose 10 ML; Start 07/16/17 at 16:00 MATHEW OLMOS MD Jul 18, 2017 12:20
[2017-07-18] MEDS: ERTAPENEM SODIUM 1 GM in SOD CHLORIDE 0.9% 100 ML IVPB SCH (12:21)
[2017-07-18] MEDS ORDERED: LANC1KIT83 MC (12:29)
[2017-07-18] MEDS ORDERED: HYDR-3498 PO (12:29)
[2017-07-18] MEDS ORDERED: BLOO-432 MC (12:29)
[2017-07-18] MEDS ORDERED: BLOO1EAC85 MC (12:29)
--- NOTE | 2017-07-18 12:32 | PDOCDIS ---
Discharge Instructions DIAGNOSIS Discharge Diagnosis 1. Left epididymis with scrotal cellulitis- resolving 2. UTI 2/2 ESBL 3. HTN 4. DM with A1c 6.2 CONDITION Patient Condition: Good HOME CARE INSTRUCTIONS: Diet Instructions: Low Fat /CholesterolSpecial Diet: Carbohydrate Controlled ACTIVITY: Activity Restrictions: No Restrictions FOLLOW UP/APPOINTMENTS Follow-up Plan 1. You will need to continue antibiotics for total of 14 day course 2. Follow up with your primary care physician 3. You will need to get a repeat ultrasound of your testicle once you finished your antibiotics 4. Take all other medications as prescribed 5. Check your sugars at least 1-2 times a day and if experiencing sugars that are >200 or <60 often call your PCP 6. Take Rew as needed for severe pain, and Tylenol for mild pain 1. tendr que continuar con los antibiticos para un total de 14 bass de curso 2. seguimiento con rincon mdico de janinara 3. usted necesitar conseguir un ultrasonido de la repeticin de rincon testculo oscar vez que usted termin ramu antibiticos 4. [facility] todos los otros medicamentos bernard se prescribe 5. Revise ramu azcares al menos 1-2 veces al da y si experimentan azcares que son > 200 o < 60 a menudo llame a rincon PCP 6. [facility] Rew bernard sea necesario para el dolor evangelina, y Tylenol para el dolor suave MATHEW OLMOS MD Jul 18, 2017 12:32
--- NOTE | 2017-07-18 12:37 | DS ---
Date/Time of Note Date/Time of Note DATE: 07/18/17 TIME: 12:37 Discharge Summary Admission/Discharge Info Admit Date/Time Jul 12, 2017 at 13:09 Discharge Date/Time Discharge Diagnosis 1. Left epididymis with scrotal cellulitis- resolving 2. UTI 2/2 ESBL 3. HTN 4. DM with A1c 6.2 Patient Condition: Good Consults Urology Infectious disease- Dr. Mason Hx of Present Illness This is a 62-year-old male, with past medical history of type 2 diabetes, essential hypertension, high cholesterol, and recent UTI who has been having scrotal pain going on for the last three days. He says he has been having subjective fevers and chills at home and also noticed increased swelling in his testicular area. He never had this before. He does say he was diagnosed with UTI about 2 weeks ago was went to his primary care doctor, and was prescribed outpatient antibiotic which he took, which did not seem to relieve his symptoms. No upper or lower GI bleeding. No diarrhea or constipation. No nausea or vomiting. No headaches or dizziness. No loss of consciousness. No chest pain or shortness of breath. No history of any stroke or heart attack. Hospital Course Patient admitted for further workup and started on IV antibiotics. US of testicle was performed and showed enlarged, heterogeneous appearing left epididymis with increased vascularity. Findings suggest epididymitis. Urology was consulted and recommended conservative treatment for now. Scrotal wall thickening, left greater than right. Findings may reflect scrotal wall edema or potentially cellulitis.Infectious disease was consulted for assistance with antibiotics management. Patient was changed to Ertapenem per ID and monitored. Urine cultures returned and showed ESBL. Patients conditioned improved and was able to ambulate with less difficulty and tolerating diet with no nausea or vomiting. Plans were for 14 days of IV antibiotics and PICC line placed. Home health consulted to administer the IV antibiotics once patient discharged. Patient also found to have Diabetes on PO medications and advised to continue home medications. Patient given script for glucometer with strips and Lancets. Patient also advised to follow up with Primary care physician and would need repeat US of testicle once antibiotics completed. Home Meds Active Scripts Blood-Glucose Meter (Blood Glucose Meter) 1 Each Each, 1 EACH , #1 Prov:MATHEW OLMOS MD 07/18/17 Blood Glucose Strips-Dispmeter (Joturl Blood Glucose System) 1 Each Kit, 1 EACH MC, #60 Prov:MATHEW OLMOS MD 07/18/17 Lancing Device/Lancets (ACCU-CHEK FASTCLIX LANCET KIT) 1 Each Kit, 1 EACH MC BID for glucose monitoring, #60 Prov:MATHEW OLMOS MD 07/18/17 Hydrocodone Bit-Acetaminophen (Hydrocodone Bit-APAP) 5-325MG Tablet, 1 TAB PO Q6H Y for MODERATE PAIN LEVEL 4-6 for 10 Days, #20 TAB Prov:MATHEW OLMOS MD 07/18/17 Reported Medications Lisinopril* (Lisinopril*) 2.5 Mg Tablet, 2.5 MG PO DAILY, #30 TAB 07/14/17 Sitagliptin* (Januvia*) 50 Mg Tablet, 50 MG PO DAILY, #30 TAB 07/14/17 Atorvastatin (Atorvastatin) 10 Mg Tablet, 10 MG PO QHS, #30 TAB 07/14/17 Glipizide* (Glipizide*) 10 Mg Tablet, 10 MG PO BID, #2 TAB 07/12/17 Metformin* (Glucophage*) 1,000 Mg Tablet, 1000 MG PO DAILY, #30 TAB 07/12/17 Follow-up Plan 1. You will need to continue antibiotics for total of 14 day course 2. Follow up with your primary care physician 3. You will need to get a repeat ultrasound of your testicle once you finished your antibiotics 4. Take all other medications as prescribed 5. Check your sugars at least 1-2 times a day and if experiencing sugars that are >200 or <60 often call your PCP 6. Take Crawford as needed for severe pain, and Tylenol for mild pain 1. tendr que continuar con los antibiticos para un total de 14 bass de curso 2. seguimiento con rincon mdico de cabecera 3. usted necesitar conseguir un ultrasonido de la repeticin de rincon testculo oscar vez que usted termin ramu antibiticos 4. Portal todos los otros medicamentos bernard se prescribe 5. Revise ramu azcares al menos 1-2 veces al da y si experimentan azcares que son > 200 o < 60 a menudo llame a rincon PCP 6. [facility] Crawford bernard sea necesario para el dolor evangelina, y Tylenol para sarah webb Primary Care Provider Not On Staff Doctor Time spent on discharge: > 30 minutes Pending Labs Laboratory Tests Test 07/17/17 17:18 07/17/17 20:41 07/18/17 01:25 07/18/17 05:25 Bedside Glucose 135mg/dL (70-220) 274mg/dL (70-220) 123mg/dL (70-220) White Blood Count 8.310^3/ul (4.8-10.8) Red Blood Count 4.1610^6/ul (4.70-6.10) Hemoglobin 11.6g/dl (14.0-18.0) Hematocrit 34.5% (42.0-52.0) Mean Corpuscular Volume 82.9fl (82.0-101.0) Mean Corpuscular Hemoglobin 27.9pg (29.0-33.0) Mean Corpuscular Hemoglobin Concent 33.6g/dl (32.0-37.0) Red Cell Distribution Width 13.6% (11.5-14.5) Platelet Count 53921^3/UL (140-415) Mean Platelet Volume 10.0fl (7.4-10.4) Neutrophils % 51.0% (39.0-77.0) Lymphocytes % 30.5% (15.0-51.0) Monocytes % 7.8% (0.0-11.0) Eosinophils % 9.1% (0.0-7.0) Basophils % 0.5% (0.0-2.0) Nucleated Red Blood Cells % 0.0/100WBC (0.0-0.0) Neutrophils # 4.310^3/ul (1.6-7.5) Lymphocytes # 2.510^3/ul (0.8-2.9) Monocytes # 0.710^3/ul (0.3-0.9) Eosinophils # 0.810^3/ul (0.0-0.5) Basophils # 0.010^3/ul (0.0-0.1) Nucleated Red Blood Cells # 0.010^3/ul (0.0-0.0) Sodium Level 140mmol/L (135-144) Potassium Level 4.0mmol/L (3.5-5.1) Chloride Level 103mmol/L (97-110) Carbon Dioxide Level 30mmol/L (21-31) Anion Gap 11 (8-16) Blood Urea Nitrogen 11mg/dl (7-20) Creatinine 0.60mg/dl (0.61-1.24) Glucose Level 136mg/dl (70-220) Calcium Level 9.2mg/dl (8.4-10.2) Test 07/18/17 08:06 07/18/17 12:14 Bedside Glucose 134mg/dL (70-220) 151mg/dL (70-220) Please fax summary to MATHEW PRESLEY MD Jul 18, 2017 12:37
--- NOTE | 2017-07-18 13:30 | CONS ---
Date/Time of Note Date/Time of Note DATE: 07/18/17 TIME: 13:30 Consult Date/Type/Reason Admit Date/Time Jul 12, 2017 at 13:09 Type of Consultation: ID Objective Vital Signs Date Time Temp Pulse Resp B/P Pulse Ox O2 Delivery O2 Flow Rate FiO2 07/18/17 07:43 97.6 59 18 129/66 99 07/18/17 01:30 Room Air Intake and Output 07/17/17 07/17/17 07/18/17 15:00 23:00 07:00 Intake Total 1900 ml 620 ml Output Total 1300 ml 550 ml Balance 600 ml 70 ml Results/Medications Result Diagram: 07/18/17 0525 07/18/17 0525 Results 24 hrs Laboratory Tests Test 07/17/17 17:18 07/17/17 20:41 07/18/17 01:25 07/18/17 05:25 Bedside Glucose 135 274 H 123 White Blood Count 8.3 Red Blood Count 4.16 L Hemoglobin 11.6 L Hematocrit 34.5 L Mean Corpuscular Volume 82.9 Mean Corpuscular Hemoglobin 27.9 L Mean Corpuscular Hemoglobin Concent 33.6 Red Cell Distribution Width 13.6 Platelet Count 273 Mean Platelet Volume 10.0 Neutrophils % 51.0 Lymphocytes % 30.5 Monocytes % 7.8 Eosinophils % 9.1 H Basophils % 0.5 Nucleated Red Blood Cells % 0.0 Neutrophils # 4.3 Lymphocytes # 2.5 Monocytes # 0.7 Eosinophils # 0.8 H Basophils # 0.0 Nucleated Red Blood Cells # 0.0 Sodium Level 140 Potassium Level 4.0 Chloride Level 103 Carbon Dioxide Level 30 Anion Gap 11 Blood Urea Nitrogen 11 Creatinine 0.60 L Glucose Level 136 Calcium Level 9.2 Test 07/18/17 08:06 07/18/17 12:14 Bedside Glucose 134 151 Medications Current Medications Ondansetron HCl (Zofran Inj) 4 mg Q6H PRN IV NAUSEA AND/OR VOMITING; Start at 13:30 Acetaminophen (Tylenol Tab) 650 mg Q6H PRN PO PAIN LEVEL 1-3 OR FEVER Last administered on 07/17/17t 21:15; Admin Dose 650 MG; Start 07/12/17 at 13:30 Acetaminophen/ Hydrocodone Bitart ([place] (5/325)) 1 tab Q6H PRN PO MODERATE PAIN LEVEL 4-6 Last administered on 07/16/17 10:43; Admin Dose 1 TAB; Start 07/12/17 at 13:30 Morphine Sulfate (morphine) 2 mg Q4H PRN IV SEVERE PAIN LEVEL 7-10; Start at 13:30 Docusate Sodium (Colace) 100 mg Q12H PRN PO CONSTIPATION Last administered on 07/15/17 17:19; Admin Dose 100 MG; Start 07/12/17 at 13:30 Magnesium Hydroxide (Milk Of Mag) 30 ml DAILY PRN PO CONSTIPATION Last administered on 07/14/17 17:37; Admin Dose 30 ML; Start 07/12/17 at 13:30 Sodium Biphosphate/ Sodium Phosphate (Fleet Enema) 133 ml DAILY PRN [place] CONSTIPATION; Start 07/12/17 at 13:30 Heparin Sodium (Porcine) (Heparin (5000 Units/0.5 ml)) 5,000 unit Q12 SC Last administered on 07/18/17 09:13; Admin Dose 5,000 UNIT; Start 07/12/17 at 21: 00 Lorazepam (Ativan) 0.5 mg Q6H PRN IV ANXIETY; Start 07/12/17 at 13:30 Hydralazine HCl (Apresoline) 10 mg Q6H PRN IV ELEVATED BLOOD PRESSURE; Start 07/12/17 at 13:30 Clonidine (Catapres) 0.1 mg Q6H PRN PO ELEVATED BLOOD PRESSURE Last administered on 07/18/17 01:33; Admin Dose 0.1 MG; Start 07/12/17 at 13:30 Nitroglycerin (Nitroglycerin (Sl Tab) 0.4 Mg) 1 tab Q5M PRN SL ANGINA; Start 07/12/17 at 13:30 Diagnostic Test (Pha) (Accu-Chek) 1 ea 02 XX Last administered on 07/18/17 01 :25; Admin Dose 1 EA; Start 07/13/17 at 02:00 Miscellaneous Information 1 ea NOTE XX ; Start 07/12/17 at 14:00 Glucose (Glutose) 15 gm Q15M PRN PO DECREASED GLUCOSE; Start 07/12/17 at 14:00 Glucose (Glutose) 22.5 gm Q15M PRN PO DECREASED GLUCOSE; Start 07/12/17 at 14: 00 Dextrose (D50w Syringe) 25 ml Q15M PRN IV DECREASED GLUCOSE; Start 07/12/17 at 14:00 Dextrose (D50w Syringe) 50 ml Q15M PRN IV DECREASED GLUCOSE; Start 07/12/17 at 14:00 Glucagon (Glucagen) 1 mg Q15M PRN IM DECREASED GLUCOSE; Start 07/12/17 at 14: 00 Glucose (Glutose) 15 gm Q15M PRN BUCCAL DECREASED GLUCOSE; Start 07/12/17 at 14:00 Atorvastatin Calcium (Lipitor) 10 mg QHS PO Last administered on 07/17/17 21: 15; Admin Dose 10 MG; Start 07/14/17 at 21:00 Lisinopril 2.5 mg 2.5 mg DAILY PO Last administered on 07/18/17 08:47; Admin Dose 2.5 MG; Start 07/15/17 at 09:00 Ertapenem/Sodium Chloride (Invanz/NS) 100 ml @ 200 mls/hr Q24H IVPB Last administered on 07/18/17 12:21; Admin Dose 200 MLS/HR; Start 07/15/17 at 12: 00 IV Flush (NS 10 ml) 10 ml PRN PRN IV IV PROTOCOL Last administered on 20:00; Admin Dose 10 ML; Start 07/16/17 at 16:00 Assessment/Plan Chief Complaint/Hosp Course SUBJECTIVE: No acute changes overnight. The patient is alert, feels much better, no fevers MICROBIOLOGY: Urine culture growing E coli ESBL ANTIMICROBIALS: Invanz PHYSICAL EXAMINATION: GENERAL: Well-developed, elderly man in no distress. HEENT: Head atraumatic, normocephalic. Sclerae anicteric. Buccal mucosa pink , dry. NECK: Supple. CHEST: Rise symmetrical. Breath sounds clear, diminished to bases. HEART: S1, S2. ABDOMEN: Soft. Bowel sounds present. ASSESSMENT: 1. Systemic inflammatory response syndrome. 2. Urinary tract infection with evidence of left epididymitis. 3. Questionable epididymis, lesion or mass as per ultrasound. 4. Diabetes. 5. Hypertension. PLAN: The patient remains stable, pending dc with current abx to complete 2 weeks DW pt/family at bedside Problems: JOSÉ MIGUEL CASPER NP Jul 18, 2017 13:30
[2017-07-18 14:43] VITALS: BP 144/70; RESP 18
== END 2017-07-18 16:55 | disposition home health service (06) | DRG 728 ==
LOC: E/R 10:28 → MS2 13:09
PROVIDERS: ADMIT Hospitalist; ATTEND Hospitalist
PROC: 02HV33Z Insertion of Infusion Device into Superior Vena Cava, Percutaneous Approach (ICD-10-PCS; principal; 2017-07-16)
PROC: B548ZZA Ultrasonography of Superior Vena Cava, Guidance (ICD-10-PCS; 2017-07-16)
DX: N45.1 Epididymitis (principal); I10 Essential (primary) hypertension; N39.0 Urinary tract infection, site not specified; N49.2 Inflammatory disorders of scrotum; E11.9 Type 2 diabetes mellitus without complications; E78.00 Pure hypercholesterolemia, unspecified
CPT/HCPCS: 36415; 36569; 71010; 76870; 76937; 80048; 80053; 80061; 81001; 82962; 83036; 83735; 84100; 84439; 84443; 85025; 85610; 85730; 87081; 87086; 96374; 96375; 97162; J0696; J1170; J1335; J1644; J1815; J1956; J2405; J3475; J7030

== ENCOUNTER 2017-09-12 09:56 | Inpatient (IN) | payer OTHER ==
[~2017-09-12] VITALS: Ht 157.5 cm; Wt 70.1 kg
[~2017-09-12 09:56] MED LIST: ATOR10TA65 PO; BLOO-432 MC; BLOO1EAC85 MC; GLIP-95 PO; HYDR-3498 PO; LANC1KIT83 MC; LISI2.5T59 PO; MTF1000T PO; SITA50TA2 PO
[2017-09-12 09:58] VITALS: Ht 157.5 cm; Wt 70.1 kg
[2017-09-12] MEDS ORDERED: PIPER-TAZO 3.375 GM IV (PMX) 50 ML IVPB STA (12:07)
[2017-09-12] MEDS ORDERED: TRIMETHOPRIM/SULFAMETHOXAZOLE 10 ML in DEXTROSE 5% 500 ML IVPB ONE (12:30)
[2017-09-12 12:49] LABS: ABNORMAL IP MESSAGE 1; HEMATOCRIT 37.8 % (42.0-52.0); MEAN CORPUSCULAR HEMOGLOBIN 28.4 pg (29.0-33.0); MEAN CORPUSCULAR HGB CONC 34.4 g/dl (32.0-37.0); MEAN CORPUSCULAR VOLUME 82.7 fl (82.0-101.0); MEAN PLATELET VOLUME 9.1 fl (7.4-10.4); PLATELET COUNT 208 10^3/UL (140-415); POSITIVE DIFF @See below; RED BLOOD COUNT 4.57 10^6/ul (4.70-6.10); RED CELL DISTRIBUTION WIDTH 15.4 % (11.5-14.5); WHITE BLOOD COUNT 26.3 10^3/ul (4.8-10.8)
[2017-09-12 13:19] LABS: ALBUMIN 4.4 g/dl (3.3-4.9); ALBUMIN/GLOBULIN RATIO 1.33; BILIRUBIN,INDIRECT 0.7 mg/dl (0-1.1); BILIRUBIN,TOTAL 0.7 mg/dl (0.2-1.3); CALCIUM 9.5 mg/dl (8.4-10.2); CREATININE 0.94 mg/dl (0.61-1.24); POTASSIUM 4.4 mmol/L (3.5-5.1); TOTAL PROTEIN 7.7 g/dl (6.1-8.1)
[2017-09-12 13:27] LABS: ANISOCYTOSIS 1+ (0-0); METAMYELOCYTES %M 1 % (0-0); MONOCYTES % (M) 2 % (0-11); PLATELET ESTIMATE NORMAL; POIKILOCYTOSIS 1+ (0-0); PROMYELOCYTES #M 0.2 10^3/ul (0-0); PROMYELOCYTES % (M) 1 % (0-0)
--- NOTE | 2017-09-12 13:32 | RADRPT ---
AMENDMENT: 09/12/2017 2:02:38 PM Val Gottlieb M.d Note that there is slight increased swelling of the left scrotal wall compared to the right scrotal wall. The left epididymis is slightly larger than the right epididymis with mild flow which can be s een with decreased resolving epididymitis or early developing epididymitis given history. Results were discussed with Dr. Gandara at 09/12/2017 2:02:24 PM. PROCEDURE: US Scrotum. CLINICAL INDICATION: Left testicular pain with swelling. TECHNIQUE: Multiple sonographic images of the scrotal region were obtained utilizing a linear arra y transducer with grayscale and color-flow and a Doppler imaging. The images were reviewed on a high -resolution PACS workstation. COMPARISON: 07/12/2017 FINDINGS: The right testicle is well visualized and has a normal echotexture. No focal areas of abnormal echog enicity are visualized. The right testicle measures 4.7 cm (L) x 2.0 cm (H) x 3.1 cm (W). There is n ormal color-flow. The right epididymis is visualized and unremarkable in appearance. There is normal color-flow. The left testicle is well visualized and has a normal echotexture. No focal areas abnormal echogenic ity are visualized. The left testicle measures measures 4.3 cm (L) x 2.3 cm (H) x 3.2 cm (W). There is normal color-flow. The left epididymis is visualized and is unremarkable in appearance. There has been resolution of the hyperemia within the left epididymis which is decreased in size on this stud y and normal in caliber. There has been resolution of the small bilateral hydroceles. The scrotal wall is unremarkable. No swelling or edema is seen. RPTAT: QQ IMPRESSION: 1. Resolution of the left epididymitis. 2. Resolution of the small bilateral hydroceles. 3. Unremarkable appearance of the bilateral testicles. .Val Gottlieb MD, MD Date Time Electronically viewed and signed by .Val Gottlieb MD, MD on 09/12/2017 14:03 .T/
--- NOTE | 2017-09-12 13:33 | ERD ---
ER Documentation Chief Complaint Chief Complaint LEFT TESTICULAR PAIN SINCE LAST NIGHT HPI This is a 62-year-old male with a history of HTN, HLD, DM, multidrug-resistant epididymitis requiring a PICC line to give a carbapenem, completed treatment approximately a month ago, who is now presenting with recurrent genital pain and concerns of recurrent infection. The patient has had a few days of recurrent worsening left sided testicular swelling and tenderness. The patient denies abdominal pain or changes to bowel movements or urination. He otherwise has no complaints. The patient denies feeling sick recently. The patient denies fever or chills. The patient has had no headache or vision changes. The patient does not endorse neck or back pain. The patient denies lightheadedness or dizziness. The patient has had no chest pain or shortness of breath or trouble breathing. The patient denies nausea or vomiting. The patient has had no focal deficits. The patient has had no weakness or numbness or tingling to the face or extremities. ROS All systems reviewed and are negative except as per history of present illness. Medications Home Meds Active Scripts Blood-Glucose Meter (Blood Glucose Meter) 1 Each Each, 1 EACH MC, #1 Prov:MATHEW DERAS MD 07/18/17 Blood Glucose Strips-Dispmeter (Karma Blood Glucose System) 1 Each Kit, 1 EACH MC, #60 Prov:MATHEW DERAS MD 07/18/17 Lancing Device/Lancets (ACCU-CHEK FASTCLIX LANCET KIT) 1 Each Kit, 1 EACH MC BID for glucose monitoring, #60 Prov:MATHEW DERAS MD 07/18/17 Hydrocodone Bit-Acetaminophen (Hydrocodone Bit-APAP) 5-325MG Tablet, 1 TAB PO Q6H Y for MODERATE PAIN LEVEL 4-6 for 10 Days, #20 TAB Prov:MATHEW DERAS MD 07/18/17 Reported Medications Lisinopril* (Lisinopril*) 2.5 Mg Tablet, 2.5 MG PO DAILY, #30 TAB 07/14/17 Sitagliptin* (Januvia*) 50 Mg Tablet, 50 MG PO DAILY, #30 TAB 07/14/17 Atorvastatin (Atorvastatin) 10 Mg Tablet, 10 MG PO QHS, #30 TAB 07/14/17 Glipizide* (Glipizide*) 10 Mg Tablet, 10 MG PO BID, #2 TAB 07/12/17 Metformin* (Glucophage*) 1,000 Mg Tablet, 1000 MG PO DAILY, #30 TAB 07/12/17 Allergies Allergies: Coded Allergies: No Known Allergy (Unverified , 09/12/17) PMhx/Soc Anesthesia Reaction: No Hx Neurological Disorder: No Hx Respiratory Disorders: No Hx Cardiac Disorders: Yes (HTN, HLD, DM) Hx Psychiatric Problems: No Hx Miscellaneous Medical Probl: Yes (Epididymitis) Hx Alcohol Use: No Hx Substance Use: No Hx Tobacco Use: No FmHx Family History: No coronary disease, No diabetes Physical Exam Vitals Vital Signs Date Time Temp Pulse Resp B/P Pulse Ox O2 Delivery O2 Flow Rate FiO2 09/12/17 09:58 99.1 99 18 130/62 99 Physical Exam Const: No apparent distress, well-developed, well-nourished Head: Normocephalic, Atraumatic Eyes: Normal Conjunctiva. Extraocular movements intact. Pupils equal, round and reactive to light ENT: Normal External Ears, Nose and Mouth. Neck: Full range of motion. No meningismus. Resp: Clear to auscultation bilaterally, No wheezes, rales or rhonchi Cardio: Regular rate and rhythm. No murmurs, rubs or gallops Abd: Soft, non tender, non distended. Normal bowel sounds : Testicular tenderness Skin: No petechiae or rashes Back: No midline tenderness. No CVA tenderness Ext: No cyanosis, or edema Neur: Awake and alert, oriented 4. Cranial nerves intact. No facial droop. Normal strength, sensation and coordination. Psych: Normal Mood and Affect Result Diagram: 09/12/17 1235 09/12/17 1235 Results 24 hrs Laboratory Tests Test 09/12/17 12:35 09/12/17 13:45 09/12/17 14:02 White Blood Count 26.310^3/ul Red Blood Count 4.5710^6/ul Hemoglobin 13.0g/dl Hematocrit 37.8% Mean Corpuscular Volume 82.7fl Mean Corpuscular Hemoglobin 28.4pg Mean Corpuscular Hemoglobin Concent 34.4g/dl Red Cell Distribution Width 15.4% Platelet Count 97463^3/UL Mean Platelet Volume 9.1fl Neutrophils % % Segmented Neutrophils % (Manual) 60% Band Neutrophils % (Manual) 26% Lymphocytes % % Lymphocytes % (Manual) 10% Monocytes % % Monocytes % (Manual) 2% Eosinophils % % Basophils % % Metamyelocytes % (manual) 1% Promyelocytes % (Manual) 1% Nucleated Red Blood Cells % 0.0/100WBC Neutrophils # 10^3/ul Neutrophils # (Manual) 17.610^3/ul Band Neutrophils # 6.810^3/ul Absolute Lymphocytes (Manual) 2.610^3/ul Lymphocytes # 10^3/ul Monocytes # 10^3/ul Absolute Monocytes (Manual) 0.510^3/ul Eosinophils # 10^3/ul Basophils # 10^3/ul Metamyelocytes # 0.210^3/ul Promyelocytes # 0.210^3/ul Nucleated Red Blood Cells # 10^3/ul Platelet Estimate NORMAL Poikilocytosis 1+ Anisocytosis 1+ Sodium Level 140mmol/L Potassium Level 4.4mmol/L Chloride Level 100mmol/L Carbon Dioxide Level 27mmol/L Anion Gap 17 Blood Urea Nitrogen 17mg/dl Creatinine 0.94mg/dl Glucose Level 123mg/dl Calcium Level 9.5mg/dl Total Bilirubin 0.7mg/dl Direct Bilirubin 0.00mg/dl Indirect Bilirubin 0.7mg/dl Aspartate Amino Transf (AST/SGOT) 22IU/L Alanine Aminotransferase (ALT/SGPT) 32IU/L Alkaline Phosphatase 64IU/L Total Protein 7.7g/dl Albumin 4.4g/dl Globulin 3.30g/dl Albumin/Globulin Ratio 1.33 Urine Color YELLOW Urine Clarity CLEAR Urine pH 6.0 Urine Specific [place] 1.020 Urine Ketones NEGATIVEmg/dL Urine Nitrite NEGATIVEmg/dL Urine Bilirubin NEGATIVEmg/dL Urine Urobilinogen NEGATIVEmg/dL Urine Leukocyte Esterase NEGATIVELeu/ul Urine Microscopic RBC 1/HPF Urine Microscopic WBC 1/HPF Urine Mucus MODERATE/HPF Urine Hemoglobin 1+mg/dL Urine Glucose NEGATIVEmg/dL Urine Total Protein 2+mg/dl Lactic Acid Level 1.4mmol/L Current Medications Medications (Trade) Dose Ordered Sig/Lexi Route PRN Reason Start Time Stop Time Status Last Admin Dose Admin Piperacillin Sod/ Tazobactam Sod 50 ml @ 100 mls/hr ONCE STAT IVPB 09/12/17 12:07 09/12/17 12:12 DC Trimethoprim/ Sulfamethoxazole 10 ml/Dextrose 510 ml @ 350 mls/hr ONCE ONCE IVPB 09/12/17 12:30 09/12/17 13:57 DC 09/12/17 14:16 Sodium Chloride (NS) 1,000 ml @ 1,000 mls/hr Q1H ONCE IV 09/12/17 14:00 09/12/17 14:59 DC 09/12/17 14:16 Ondansetron HCl (Zofran Inj) 4 mg BRIDGE ORDER PRN IV NAUSEA AND/OR VOMITING 09/12/17 14:30 09/13/17 14:29 Acetaminophen (Tylenol Tab) 650 mg ER BRIDGE PRN PO MILD PAIN/FEVER 09/12/17 14:30 09/13/17 14:29 Procedures/MDM MDM The patient's presentation warrants further investigation. The patient's symptoms are consistent with recurrent epididymitis. He has an enlarged left testicle with exquisite tenderness. An US and blood work will be preformed. LABS The patient's blood work was obtained and reviewed. The patient's CBC shows significant leukocytosis and bandemia. The patient is afebrile, but I am worried of an infection. The patient is mildly anemic today, which does not need to be emergently treated. The patient's platelet count is unremarkable. The patient's CMP shows no signs of metabolic or electrolyte emergencies. The patient has unremarkable renal and hepatic function testing. Lactic acid is negative. UA is negative. IMAGING US Scrotal FINDINGS: The right testicle is well visualized and has a normal echotexture. No focal areas of abnormal echogenicity are visualized. The right testicle measures 4.7 cm (L) x 2.0 cm (H) x 3.1 cm (W). There is normal color-flow. The right epididymis is visualized and unremarkable in appearance. There is normal color-flow. The left testicle is well visualized and has a normal echotexture. No focal areas abnormal echogenicity are visualized. The left testicle measures measures 4.3 cm (L) x 2.3 cm (H) x 3.2 cm (W). There is normal color-flow. The left epididymis is visualized and is unremarkable in appearance. There has been resolution of the hyperemia within the left epididymis which is decreased in size on this study and normal in caliber. There has been resolution of the small bilateral hydroceles. The scrotal wall is unremarkable. No swelling or edema is seen. IMPRESSION: Resolution of the left epididymitis. Resolution of the small bilateral hydroceles. Unremarkable appearance of the bilateral testicles. Electronically viewed and signed by .Val Gottlieb MD, MD on 09/12/2017 14: 03 TREATMENT/DISPOSITION After reading the report of the US, I spoke about the case with the radiologist who noted that there may be some increased swelling of he left epididymis, but that it appears significantly improved compared to the previous scan. I am concerned that the patient's symptoms may be restarting and that they are just in the early stages. I am concerned of the significant leukocytosis in this setting. There is no evidence of other source based on clinical presentation. While I am concerned of infection, I doubt sepsis. The patient will receive antibiotics in the ER. At this time, I feel that the patient requires admission for further evaluation and management. The patient will be admitted to Panel in accordance with the patient's insurance. The patient was accepted by Dr. Mathew Deras at 14:30 PM on 2016. Disclaimer: Inadvertent spelling and grammatical errors are likely due to EHR/ dictation software use and do not reflect on the overall quality of patient care. Note that the electronic time recorded on this note does not necessarily reflect the actual time of the patient encounter. Departure Diagnosis: Primary Impression: Epididymitis Additional Impressions: Leukocytosis Leukocytosis type: unspecified Qualified Code: D72.829 - Leukocytosis, unspecified type Anemia Anemia type: unspecified type Qualified Code: D64.9 - Anemia, unspecified type Condition: FABRIZIO Madrigal MD Sep 12, 2017 13:33
[2017-09-12 14:00] LABS: ADD UMIC YES; UR ASCORBIC ACID NEGATIVE (NEGATIVE); UR BILIRUBIN (Dip) NEGATIVE (NEGATIVE); UR BLOOD (Dip) 1+ mg/dL (NEGATIVE); UR CLARITY CLEAR (CLEAR); UR COLOR YELLOW (YELLOW); UR GLUCOSE (Dip) NEGATIVE (NEGATIVE); UR KETONES (Dip) NEGATIVE (NEGATIVE); UR LEUKOCYTE ESTERASE (Dip) NEGATIVE Leu/ul (NEGATIVE); UR MUCUS MODERATE /HPF (NONE SEEN); UR NITRITE (Dip) NEGATIVE (NEGATIVE); UR RBC 1 /HPF (0-5); UR TOTAL PROTEIN (Dip) 2+ mg/dl (NEGATIVE); UR UROBILINOGEN (Dip) NEGATIVE (NEGATIVE)
[2017-09-12] MEDS ORDERED: SOD CHLORIDE 0.9% 1,000 ML IV ONE (14:00)
[2017-09-12] MEDS ORDERED: ACETAMINOPHEN 325 MG TAB PO PRN ×2 (14:30→17:00)
[2017-09-12] MEDS ORDERED: ONDANSETRON 4 MG INJ IV PRN ×2 (14:30→17:00)
--- NOTE | 2017-09-12 15:43 | CONS ---
Date/Time of Note Date/Time of Note DATE: 09/12/17 TIME: 15:34 Assessment/Plan Assessment/Plan Chief Complaint/Hosp Course 62-year-old male with history of left epididymitis. He was treated in June 2017 and came back today with a left testicular pain. Scrotal ultrasound was reported as resolution of the epididymitis. However his CBC showed leukocytosis was a white count of 26,000. On the physical exam the left testis and epididymis are hard but there is no fluctuation to indicate any abscess formation. Therefore recommendation would be to treat him with antibiotic, elevate the scrotum on a towel all the time. Do pelvic ultrasound to check his pre-void, post void bladder volume and the prostate size to make sure there is no obstruction and high postvoid residual that could cause recurrent infection. We will also send urine for culture and sensitivity. Problems: Consultation Date/Type/Reason Admit Date/Time September 12, 2017 Date of Consultation: Sep 12, 2017 Type of Consultation: Urology Reason for Consultation Left acute epididymitis Referring Provider: BRENNAN STEPHEN NP Hx of Present Illness 62-year-old male presented to the emergency room was left testicular pain. Patient had similar problem around July 12, 2017 and was admitted to the hospital till July 18, 2017. Scrotal ultrasound was done today and was reported as: 1. Resolution of the left epididymitis. 2. Resolution of the small bilateral hydroceles. 3. Unremarkable appearance of the bilateral testicles. However CBC on admission showed leukocytosis. And I was asked by the nurse practitioner to see him and urological consultation. Constitutional: no complaints Eyes: no complaints ENT: no complaints Respiratory: no complaints Cardiovascular: no complaints Gastrointestinal: no complaints Genitourinary: other (Pain left testicle) Musculoskeletal: no complaints Skin: no complaints Neurologic: no complaints Endocrine: no complaints Lymphatic: no complaints Psychological: no complaints Past Medical History Medical History: diabetes, high cholesterol, hypertension Past Surgical History Past Surgical Hx: no surgical history Family History Significant Family History: no pertinent family hx Social History Alcohol Use: rarely Smoking Status: Never smoker Drug Use: none Exam/Review of Systems Vital Signs Vitals Vital Signs Date Time Temp Pulse Resp B/P Pulse Ox O2 Delivery O2 Flow Rate FiO2 09/12/17 09:58 99.1 99 18 130/62 99 Exam Constitutional: alert Psych: no complaints Head: normocephalic Eyes: nl conjunctiva ENMT: nl external ears & nose Neck: supple Respiratory: normal air movement Cardiovascular: regular rate and rhythm Gastrointestinal: soft Genitourinary - Male: nl penis, other (Left testis and epididymis are hard but there is no fluctuation to indicate any abscess) Musculoskeletal: nl extremities to inspection Extremities: No calf tenderness Skin: nl turgor Lymph: nl lymph nodes Results Result Diagram: 09/12/17 1235 09/12/17 1235 Results 24 hrs Laboratory Tests Test 09/12/17 12:35 09/12/17 13:45 09/12/17 14:02 White Blood Count 26.3 #H Red Blood Count 4.57 L Hemoglobin 13.0 L Hematocrit 37.8 L Mean Corpuscular Volume 82.7 Mean Corpuscular Hemoglobin 28.4 L Mean Corpuscular Hemoglobin Concent 34.4 Red Cell Distribution Width 15.4 H Platelet Count 208 # Mean Platelet Volume 9.1 Neutrophils % Segmented Neutrophils % (Manual) 60 Band Neutrophils % (Manual) 26 H Lymphocytes % Lymphocytes % (Manual) 10 L Monocytes % Monocytes % (Manual) 2 Eosinophils % Basophils % Metamyelocytes % (manual) 1 H Promyelocytes % (Manual) 1 H Nucleated Red Blood Cells % 0.0 Neutrophils # Neutrophils # (Manual) 17.6 H Band Neutrophils # 6.8 H Absolute Lymphocytes (Manual) 2.6 Lymphocytes # Monocytes # Absolute Monocytes (Manual) 0.5 Eosinophils # Basophils # Metamyelocytes # 0.2 H Promyelocytes # 0.2 H Nucleated Red Blood Cells # Platelet Estimate NORMAL Poikilocytosis 1+ Anisocytosis 1+ Sodium Level 140 Potassium Level 4.4 Chloride Level 100 Carbon Dioxide Level 27 Anion Gap 17 H Blood Urea Nitrogen 17 Creatinine 0.94 Glucose Level 123 Calcium Level 9.5 Total Bilirubin 0.7 Direct Bilirubin 0.00 Indirect Bilirubin 0.7 Aspartate Amino Transf (AST/SGOT) 22 Alanine Aminotransferase (ALT/SGPT) 32 Alkaline Phosphatase 64 Total Protein 7.7 Albumin 4.4 Globulin 3.30 H Albumin/Globulin Ratio 1.33 Urine Color YELLOW Urine Clarity CLEAR Urine pH 6.0 Urine Specific [place] 1.020 Urine Ketones NEGATIVE Urine Nitrite NEGATIVE Urine Bilirubin NEGATIVE Urine Urobilinogen NEGATIVE Urine Leukocyte Esterase NEGATIVE Urine Microscopic RBC 1 Urine Microscopic WBC 1 Urine Mucus MODERATE Urine Hemoglobin 1+ H Urine Glucose NEGATIVE Urine Total Protein 2+ H Lactic Acid Level 1.4 Imaging Free Text/Dictation Scrotal ultrasound: 1. Resolution of the left epididymitis. 2. Resolution of the small bilateral hydroceles. 3. Unremarkable appearance of the bilateral testicles. JESSICA SELLERS MD Sep 12, 2017 15:43
--- NOTE | 2017-09-12 15:54 | HP ---
Date/Time of Note Date/Time of Note DATE: 09/12/17 TIME: 15:53 Assessment/Plan VTE Prophylaxis VTE Prophylaxis Intervention: SCD's Assessment/Plan Chief Complaint/Hosp Course 1. Left testicular pain. -Etiology unclear. Testicular ultrasound showing resolution of left epididymitis. -Continue pain control. -Empiric antibiotics. -ID and urology consult. 2. Systemic inflammatory response syndrome. -Obtain pancultures. -Empiric antibiotics. -ID consult. 3. Essential hypertension. -Resume antihypertensives. 4. Type 2 diabetes mellitus. -Resume metformin. -Start sliding scale insulin along with basal insulin and pre-meal insulin. 5. Dyslipidemia. -Continue statins. Plan: The patient will be admitted to inpatient medical surgical floor. The patient will be started on a carbohydrate controlled, low-cholesterol diet. The patient will be started on DVT prophylaxis. The patient will remain a full code. Activities will be bedrest. The rest of the patient's management will be based on the clinical course, inputs from consultants, and the results of diagnostic studies. Based on the patient's clinical presentation, he most probably requires at least 2 midnights' stay for further management and evaluation of his clinical presentation. The case and management of this patient was fully discussed with Dr. Goss. Problems: Assessment/Plan This is the case of a 62-year-old male with past medical history essential hypertension, type 2 diabetes mellitus, dyslipidemia, and prior left epididymitis and E. coli ESBL urinary tract infection who will be admitted to inpatient setting for further evaluation and treatment of his underlying left sided testicular pain. HPI/ROS Admit Date/Time Admit Date/Time September 12, 2017 Hx of Present Illness Reason for admission: Left testicular pain. Consultants 1. Johnson Amado MD, Urology. 2. Kaveh Mason MD, Infectious Diseases. This is a 62-year-old male with past medical history essential hypertension, dyslipidemia, and type 2 diabetes mellitus who was recently discharged from [facility] on 07/18/2017 after treatment of E. coli ESBL urinary tract infection and left epididymitis and scrotal cellulitis. The patient was discharged home on IV carbapenems. The patient verbalized that he finished the IV antibiotics. He continued to have left testicular swelling and edema that was becoming worse and he decided to come to the emergency room on 09/12/2017. The patient denied any dysuria, urgency, or frequency. The patient denied any fevers or chills. In the emergency room, the patient was noticed to have significant leukocytosis (26.3) along with bandemia. Patient was afebrile in the emergency room. The patient's renal function was within normal limits. The patient's urinalysis showed urine mucus, but negative urinary nitrate and leukocyte esterase with urine microscopic WBC of 1. Testicular ultrasound revealed resolving left epididymitis and resolution of the small bilateral hydroceles. The patient was treated with IV Zosyn and IV Bactrim in the emergency room. ROS Eyes: no complaints ENT: no complaints Respiratory: no complaints Cardiovascular: no complaints Gastrointestinal: no complaints Genitourinary: other (Pain left testicle) Musculoskeletal: no complaints Skin: no complaints Neurologic: no complaints Lymphatic: no complaints Psychological: no complaints PMH/Family/Social Past Medical History Medical History: diabetes, high cholesterol, hypertension, other (Prior UTI and epidimytis) Past Surgical History Past Surgical Hx: no surgical history Social History Alcohol Use: rarely Smoking Status: Never smoker Drug Use: none Exam/Review of Systems Vital Signs Vitals Vital Signs Date Time Temp Pulse Resp B/P Pulse Ox O2 Delivery O2 Flow Rate FiO2 09/12/17 09:58 99.1 99 18 130/62 99 Exam Exam General: Adequately build 62 year-old male lying in bed in no apparent distress. HEENT: Normocephalic, atraumatic. Eyes: Anicteric sclerae, conjunctivae clear. ENT: Nasal septum midline, oral mucosa moist. Neck supple, no JVD noticed. Respiratory: Bilaterally clear breath sounds. No use of accessory muscles of respiration. No adventitious breath sounds. Cardiovascular: S1, S2 heard. Regular rate and rhythm. Abdomen: Soft, nontender, and nondistended. Bowel sounds positive in all 4 quadrants. Genitourinary: Normal circumcised penis. Left scrotal erythema with tenderness to touch. Extremities: No cyanosis, no clubbing, no edema. Peripheral pulses palpable. Neurologic: Cranial nerves II through XII grossly intact. The patient is awake, alert, and oriented. Skin: Normal skin turgor. No skin rashes. Labs Result Diagram: 09/12/17 1235 09/12/17 1235 Procedures Procedures Testicular Ultrasound IMPRESSION: 1. Resolution of the left epididymitis. 2. Resolution of the small bilateral hydroceles. 3. Unremarkable appearance of the bilateral testicles. BRENNAN STEPHEN NP Sep 12, 2017 15:54 BRENNAN STEPHEN NP Sep 12, 2017 15:54
--- NOTE | 2017-09-12 16:49 | RADRPT ---
PROCEDURE: Male pelvic ultrasound CLINICAL INDICATION: Urinary retention TECHNIQUE: Multiplanar villa scale and color Doppler imaging of the canal pelvis were obtained. COMPARISON: None FINDINGS: The prevoid volume of the urinary bladder is 990 cc. The postvoid volume of the urinary bladder is 1 11 cc. The urinary bladder wall is normal appearance. No mass in the urinary bladder is seen. The pr ostate measures 3.7 x 4.1 x 5.6 cm in size. IMPRESSION: Significant postvoid urinary bladder volume which may be secondary to bladder outlet obstruction fro m the enlarged prostate. Recommend PSA correlation. RPTAT: HPNM Physician Venancio Date Time Electronically viewed and signed by Physician Venancio on 09/12/2017 16:49 /
[2017-09-12] MEDS ORDERED: GLUCOSE GEL 15 GRAM TUBE PO PRN ×2 (17:00)
[2017-09-12] MEDS ORDERED: NACL 0.9% 3 ML SYG IV SCH (17:00)
[2017-09-12] MEDS ORDERED: GLUCAGON 1 MG INJ IM PRN (17:00)
[2017-09-12] MEDS ORDERED: HYDROCODONE/APAP (5/325) TAB PO PRN (17:00)
[2017-09-12] MEDS ORDERED: morphine 2 MG INJ IV PRN (17:00)
[2017-09-12] MEDS ORDERED: DEXTROSE 50% 50 ML SYRINGE IV PRN ×2 (17:00)
[2017-09-12] MEDS ORDERED: GLUCOSE GEL 15 GRAM TUBE BUCCAL PRN (17:00)
[2017-09-12] MEDS ORDERED: CEFTRIAXONE 1 GM/50 ML (PMX) 50 ML IVPB SCH (17:00)
[2017-09-12] MEDS: INSULIN ASPART [NOVOLOG] 3 ML PEN SC SCH ×3 (19:29→21:00)
[2017-09-12] MEDS: ATORVASTATIN 10 MG TAB PO SCH (21:18)
[2017-09-12 23:06] VITALS: TEMP 98.5
[2017-09-12 23:30] VITALS: BP 126/64; RESP 14
[2017-09-13] MEDS: ACCU-CHEK XX SCH (00:26)
[2017-09-13 01:55] VITALS: BP 117/61; RESP 14
[2017-09-13 06:05] LABS: BASOPHIL # 0.1 10^3/ul (0.0-0.1); BASOPHILS % 0.3 % (0.0-2.0); EOSINOPHILS # 0.4 10^3/ul (0.0-0.5); EOSINOPHILS % 2.1 % (0.0-7.0); HEMATOCRIT 34.2 % (42.0-52.0); HEMOGLOBIN 11.7 g/dl (14.0-18.0); LYMPHOCYTES # 2.3 10^3/ul (0.8-2.9); LYMPHOCYTES % 12.8 % (15.0-51.0); MEAN CORPUSCULAR HEMOGLOBIN 28.4 pg (29.0-33.0); MEAN CORPUSCULAR HGB CONC 34.2 g/dl (32.0-37.0); MEAN PLATELET VOLUME 9.5 fl (7.4-10.4); MONOCYTE # 1.2 10^3/ul (0.3-0.9); MONOCYTES % 6.8 % (0.0-11.0); NEUTROPHIL # 13.8 10^3/ul (1.6-7.5); NEUTROPHILS % 77.6 % (39.0-77.0); PLATELET COUNT 196 10^3/UL (140-415); RED BLOOD COUNT 4.12 10^6/ul (4.70-6.10); RED CELL DISTRIBUTION WIDTH 15.6 % (11.5-14.5); WHITE BLOOD COUNT 17.8 10^3/ul (4.8-10.8)
[2017-09-13 06:23] LABS: INR 1.11; PROTIME 14.5 Sec (11.9-14.9); PT RATIO 1.1
[2017-09-13 06:24] LABS: PARTIAL THROMBOPLASTIN TIME 35.1 Sec (25.0-35.0)
[2017-09-13 06:36] LABS: MAGNESIUM 1.9 mg/dl (1.7-2.5); PHOSPHORUS 2.9 mg/dl (2.5-4.9)
--- NOTE | 2017-09-13 06:47 | CONS ---
DATE OF ADMISSION: 09/12/2017 DATE OF CONSULTATION: 09/12/2017 TYPE OF CONSULTATION: Infectious Disease. REASON FOR CONSULTATION: Antibiotic management. HISTORY OF PRESENT ILLNESS: Zachary Younger is a 62-year-old male with numerous problems, who comes in now and is being seen for antibiotic management. His past problems include: 1. Multidrug resistant epididymitis requiring a PICC line to give him a carbapenem. He completed t reatment approximately a month ago, now presenting with recurrent general pain and concerns for recu rrent infection. The patient has no chest pain. He denied feeling sick until recently. He does rg ve a history of epididymitis. He was seen also by Dr. Sellers, urology. According to Dr. Sellers, he was treated in June 2017, came back today with left testicular pain. Scrotal ultrasound was r eported as resolution of epididymitis; however, his CBC showed leukocytosis with a white count of 26 ,000. 2. On physical exam, left testis and epididymis are hard. There is no fluctuance that communicates abscess formation. He recommended treating with antibiotics, elevate the scrotum on a towel, do a pelvic ultrasound to check his pee, void and postvoid bladder volume and prostate size to make sure there is no obstruction. PAST MEDICAL HISTORY: Essentially as outlined. FAMILY HISTORY: Noncontributory. SOCIAL HISTORY: Does not smoke, drink or abuse drugs. ALLERGIES: NONE TO PENICILLIN, SULFA OR FOODS. MEDICATIONS: Per chart. REVIEW OF SYSTEMS: As per HPI. PHYSICAL EXAMINATION: GENERAL: The patient is a well-developed, well-nourished male who is alert, responsive, in no acute distress. VITAL SIGNS: Stable. He is afebrile. SKIN: Without generalized rash. HEENT: Within normal limits. NECK: Supple. LYMPH NODES: None palpable. CHEST: Decreased breath sounds at the bases. HEART: Without murmur or gallop. ABDOMEN: Soft, nontender, without organosplenomegaly or masses. EXTREMITIES: Without cyanosis, clubbing, or edema. GENITAL: Normal circumcised penis, left scrotal erythema and tenderness to touch. RECTAL: Deferred. NEUROLOGIC: No focal neurological abnormality. LABORATORY DATA: As noted, his white count was 26.3, H and H 13 and 37.8, platelet count 208,000. BUN and creatinine 17/0.93, glucose of 123. IMPRESSION AND PLAN: The patient was begun on ceftriaxone. He had received Zosyn, trimethoprim and sodium chloride and now is on ceftriaxone. I am going to probably place him on ertapenem. Rony iglesias to the ultrasound, there is resolution of the left epididymitis and bilateral hydroceles. Unrema rkable appearance of the bilateral testicles. Nevertheless, I think it is worthwhile placing him on carbapenem. We will check on his past records. At that time, it was sensitive to imipenem and pro bably ertapenem. Dictated By: CAROL ROSE MD, JD/NTS Conf#: [id number] DID#: [id number] CC: JESSICA SELLERS MD;*[facility]*
[2017-09-13 07:09] LABS: ALBUMIN 3.6 g/dl (3.3-4.9); ALBUMIN/GLOBULIN RATIO 1.12; BILIRUBIN,INDIRECT 0.3 mg/dl (0-1.1); BILIRUBIN,TOTAL 0.3 mg/dl (0.2-1.3); CALCIUM 8.7 mg/dl (8.4-10.2); CREATININE 0.77 mg/dl (0.61-1.24); POTASSIUM 4.1 mmol/L (3.5-5.1); TOTAL PROTEIN 6.8 g/dl (6.1-8.1)
[2017-09-13 07:37] VITALS: BP 133/68; RESP 18
[2017-09-13 08:13] VITALS: BP 118/62; PULSE 72; RESP 16
[2017-09-13] MEDS: INSULIN ASPART [NOVOLOG] 3 ML PEN SC SCH ×7 (08:15→21:00)
[2017-09-13] MEDS: LISINOPRIL 5 MG TAB PO SCH (08:23)
[2017-09-13] MEDS: metFORMIN 500 MG TAB PO SCH (08:24)
[2017-09-13] MEDS: INSULIN GLARGINE [LANtus] 3 ML PEN SC SCH (08:24)
[2017-09-13] MEDS: ERTAPENEM SODIUM 1 GM in SOD CHLORIDE 0.9% 100 ML IVPB SCH (09:14)
--- NOTE | 2017-09-13 10:46 | PN ---
Date/Time of Note Date/Time of Note DATE: 09/13/17 TIME: 10:44 Assessment/Plan VTE Prophylaxis VTE Prophylaxis Intervention: heparin Lines/Catheters IV C[facility]ter Type (from [facility] Urinary Cath still in place: No Assessment/Plan Problems: (1) Epididymitis Status: Acute Comment: Clinically he is improving with IV antibiotic therapy. Will try and get him into position where we can complete this as an outpatient. Please see the consult note from urology. I have gone ahead and order the bladder scans for residuals. (2) Diabetes mellitus type 2 in nonobese Status: Chronic Comment: As an outpatient he is treated with oral agent therapy only. I am going to adjust the dosages to reflect his renal function (3) Essential hypertension Status: Chronic Comment: Noted. Continue with treatment (4) Hyperlipidemia Status: Chronic Comment: Check a cholesterol panel tomorrow as he is on a relatively light dose of statin in a patient with both diabetes and hypertension Qualifiers: Hyperlipidemia type: pure hypercholesterolemia Qualified Code: E78.00 - Pure hypercholesterolemia Subjective 24 Hr Interval Summary Free Text/Dictation Patient reports he is feeling a little bit better today. Constitutional: no complaints (No fevers chills or sweats) Respiratory: no complaints Cardiovascular: no complaints Gastrointestinal: no complaints Genitourinary: no complaints (Denies dysuria hematuria or hesitancy) Exam/Review of Systems Vital Signs Vitals Vital Signs Date Time Temp Pulse Resp B/P Pulse Ox O2 Delivery O2 Flow Rate FiO2 09/13/17 07:37 98.4 85 18 133/68 95 09/12/17 23:06 Room Air Intake and Output 09/12/17 09/12/17 09/13/17 15:00 23:00 07:00 Intake Total 500 ml Output Total 650 ml Balance -150 ml Exam Constitutional: alert, oriented Respiratory: clear to auscultation, normal air movement Cardiovascular: nl pulses, regular rate and rhythm Gastrointestinal: nl liver, spleen, non-tender, soft Results Result Diagram: 09/13/17 0544 09/13/17 0544 Results 24 hrs Laboratory Tests Test 09/12/17 12:35 09/12/17 13:45 09/12/17 14:02 09/12/17 19:20 White Blood Count 26.3 #H Red Blood Count 4.57 L Hemoglobin 13.0 L Hematocrit 37.8 L Mean Corpuscular Volume 82.7 Mean Corpuscular Hemoglobin 28.4 L Mean Corpuscular Hemoglobin Concent 34.4 Red Cell Distribution Width 15.4 H Platelet Count 208 # Mean Platelet Volume 9.1 Neutrophils % Segmented Neutrophils % (Manual) 60 Band Neutrophils % (Manual) 26 H Lymphocytes % Lymphocytes % (Manual) 10 L Monocytes % Monocytes % (Manual) 2 Eosinophils % Basophils % Metamyelocytes % (manual) 1 H Promyelocytes % (Manual) 1 H Nucleated Red Blood Cells % 0.0 Neutrophils # Neutrophils # (Manual) 17.6 H Band Neutrophils # 6.8 H Absolute Lymphocytes (Manual) 2.6 Lymphocytes # Monocytes # Absolute Monocytes (Manual) 0.5 Eosinophils # Basophils # Metamyelocytes # 0.2 H Promyelocytes # 0.2 H Nucleated Red Blood Cells # Platelet Estimate NORMAL Poikilocytosis 1+ Anisocytosis 1+ Sodium Level 140 Potassium Level 4.4 Chloride Level 100 Carbon Dioxide Level 27 Anion Gap 17 H Blood Urea Nitrogen 17 Creatinine 0.94 Glucose Level 123 Calcium Level 9.5 Total Bilirubin 0.7 Direct Bilirubin 0.00 Indirect Bilirubin 0.7 Aspartate Amino Transf (AST/SGOT) 22 Alanine Aminotransferase (ALT/SGPT) 32 Alkaline Phosphatase 64 Total Protein 7.7 Albumin 4.4 Globulin 3.30 H Albumin/Globulin Ratio 1.33 Urine Color YELLOW Urine Clarity CLEAR Urine pH 6.0 Urine Specific [place] 1.020 Urine Ketones NEGATIVE Urine Nitrite NEGATIVE Urine Bilirubin NEGATIVE Urine Urobilinogen NEGATIVE Urine Leukocyte Esterase NEGATIVE Urine Microscopic RBC 1 Urine Microscopic WBC 1 Urine Mucus MODERATE Urine Hemoglobin 1+ H Urine Glucose NEGATIVE Urine Total Protein 2+ H Lactic Acid Level 1.4 Bedside Glucose 117 Test 09/13/17 05:44 09/13/17 08:22 White Blood Count 17.8 #H Red Blood Count 4.12 L Hemoglobin 11.7 L Hematocrit 34.2 L Mean Corpuscular Volume 83.0 Mean Corpuscular Hemoglobin 28.4 L Mean Corpuscular Hemoglobin Concent 34.2 Red Cell Distribution Width 15.6 H Platelet Count 196 Mean Platelet Volume 9.5 Neutrophils % 77.6 H Lymphocytes % 12.8 L Monocytes % 6.8 Eosinophils % 2.1 Basophils % 0.3 Nucleated Red Blood Cells % 0.0 Neutrophils # 13.8 H Lymphocytes # 2.3 Monocytes # 1.2 H Eosinophils # 0.4 Basophils # 0.1 Nucleated Red Blood Cells # 0.0 Prothrombin Time 14.5 Prothrombin Time Ratio 1.1 INR International Normalized Ratio 1.11 Activated Partial Thromboplast Time 35.1 H Sodium Level 138 Potassium Level 4.1 Chloride Level 107 Carbon Dioxide Level 24 Anion Gap 11 Blood Urea Nitrogen 14 Creatinine 0.77 Glucose Level 89 Calcium Level 8.7 Phosphorus Level 2.9 Magnesium Level 1.9 Total Bilirubin 0.3 Direct Bilirubin 0.00 Indirect Bilirubin 0.3 Aspartate Amino Transf (AST/SGOT) 21 Alanine Aminotransferase (ALT/SGPT) 31 Alkaline Phosphatase 69 Total Protein 6.8 Albumin 3.6 Globulin 3.20 Albumin/Globulin Ratio 1.12 Prostate Specific Antigen 1.2 Bedside Glucose 91 Medications Medications Current Medications Ondansetron HCl (Zofran Inj) 4 mg Q6H PRN IV NAUSEA AND/OR VOMITING; Start at 17:00 Acetaminophen (Tylenol Tab) 650 mg Q6H PRN PO PAIN LEVEL 1-3 OR FEVER; Start 09/12/17 at 17:00 Acetaminophen/ Hydrocodone Bitart ([place] (5/325)) 1 tab Q6H PRN PO MODERATE PAIN LEVEL 4-6; Start 09/12/17 at 17:00 Morphine Sulfate (morphine) 2 mg Q4H PRN IV SEVERE PAIN LEVEL 7-10; Start at 17:00 Atorvastatin Calcium (Lipitor) 10 mg QHS PO Last administered on 09/12/17 21: 18; Admin Dose 10 MG; Start 09/12/17 at 21:00 Lisinopril (Zestril) 2.5 mg DAILY PO Last administered on 09/13/17 08:23; Admin Dose 2.5 MG; Start 09/13/17 at 09:00 Metformin HCl (Glucophage) 1,000 mg DAILY PO Last administered on 09/13/17 08 :24; Admin Dose 1,000 MG; Start 09/13/17 at 09:00 Diagnostic Test (Pha) (Accu-Chek) 1 ea 02 XX ; Start 09/13/17 at 02:00 Insulin Glargine (Lantus) 11 unit DAILY@08 SC Last administered on 09/13/17 08:24; Admin Dose 11 UNIT; Start 09/13/17 at 08:00 Miscellaneous Information 1 ea NOTE XX ; Start 09/12/17 at 17:00 Glucose (Glutose) 15 gm Q15M PRN PO DECREASED GLUCOSE; Start 09/12/17 at 17:00 Glucose (Glutose) 22.5 gm Q15M PRN PO DECREASED GLUCOSE; Start 09/12/17 at 17: 00 Dextrose (D50w Syringe) 25 ml Q15M PRN IV DECREASED GLUCOSE; Start 09/12/17 at 17:00 Dextrose (D50w Syringe) 50 ml Q15M PRN IV DECREASED GLUCOSE; Start 09/12/17 at 17:00 Glucagon (Glucagen) 1 mg Q15M PRN IM DECREASED GLUCOSE; Start 09/12/17 at 17: 00 Glucose 15 gm 15 gm Q15M PRN BUCCAL DECREASED GLUCOSE; Start 09/12/17 at 17:00 Ertapenem/Sodium Chloride (Invanz/NS) 100 ml @ 200 mls/hr QAM IVPB Last administered on 09/13/17t 09:14; Admin Dose 200 MLS/HR; Start 09/13/17 at 09: 00 ISAAC HAAS MD Sep 13, 2017 10:46
[2017-09-13] MEDS: LINAGLIPTIN 5 MG TABLET PO SCH (12:10)
[2017-09-13 14:29] VITALS: BP 133/70; RESP 16
--- NOTE | 2017-09-13 18:37 | CONS ---
Date/Time of Note Date/Time of Note DATE: 09/13/17 TIME: 18:37 Assessment/Plan Assessment/Plan Chief Complaint/Hosp Course ID PROGRESS NOTE CURRENT ABX: =>Ertapenem 24H INTERVAL SUMMARY * Awake, alert, responsive, no fevers, feeling better on ABX * 09/12/17 PELVIC US:Significant postvoid urinary bladder volume which may be secondary to bladder outlet obstruction from the enlarged prostate. Recommend PSA correlation. * 09/12/17 Testicular US: IMPRESSION:1. Resolution of the left epididymitis.2. Resolution of the small bilateral hydroceles.3. Unremarkable appearance of the bilateral testicles. * 09/12/17 MICRO: BCx (-) 24H; Urine Cx (-)24 H * PRIOR ADMISSION URINE CX: URINE CULTURE Final Organism 1 ESCHERICHIA COLI (ESBL) COLONY COUNT 50,000 - 60,000 CFU/ml . MULTI DRUG RESISTANT ORGANISM ECOLI ESBL M.I.C. RX --------- --- AMIKACIN 4 S CEFAZOLIN R CEFEPIME 2 S CEFOTAXIME R CIPROFLOXACIN >=4 R GENTAMICIN >=16 R IMIPENEM <=0.25 S LEVOFLOXACIN >=8 R NITROFURANTOIN <=16 S TOBRAMYCIN 8 I TRIMETHOPRIM/SULFAMETHOXAZOLE <=20 S PIPERACILLIN/TAZOBACTAM 8 S PHYSICAL EXAMINATION: GENERAL: Well-developed, elderly man in no distress. HEENT: Head atraumatic, normocephalic. Sclerae anicteric. Buccal mucosa pink , dry. NECK: Supple. CHEST: Rise symmetrical. Breath sounds clear, diminished to bases. HEART: S1, S2. ABDOMEN: Soft. Bowel sounds present. : Deferred SKIN: No rash, no diaphoresis ID ASSESSMENT: 62 yo M admit with: 1. Systemic inflammatory response syndrome. * 09/12/17 MICRO: BCx (-) 24H; Urine Cx (-)24 H 2. Urinary retention 2/2 BPH with possible bladder outlet obstruction -> No evidence of recurrent UTI * 09/12/17 PELVIC US:Significant postvoid urinary bladder volume which may be secondary to bladder outlet obstruction from the enlarged prostate. 3. Hx of prior GNR E.Coli/ESBL Complicated UTI w/Epididymis * 09/12/17 Testicular US: 1. Resolution of the left epididymitis.2. Resolution of the small bilateral hydroceles.3. Unremarkable appearance of the bilateral testicles. 4. Diabetes. 5. Hypertension. INVASIVES: PIV ABX ALLERGY: KNDA CURRENT ABX: =>Ertapenem ID RECOMMENDATIONS/PLAN: 1. Continue current ABX over the weekend -> Check PSA level, f/u on urine cx pending final. 2. Further recs per 3. I was able to give patient and spouse update on ABX plan and negative preliminary cx result tonight via [employer] * Both express understanding, gratitude for plan of care . . Problems: Consultation Date/Type/Reason Admit Date/Time Sep 12, 2017 at 14:33 Initial Consult Date 09/12/17 Type of Consultation: ID Referring Provider: BRENNAN STEPHEN BAND SHOVER Exam/Review of Systems Vital Signs Vitals Vital Signs Date Time Temp Pulse Resp B/P Pulse Ox O2 Delivery O2 Flow Rate FiO2 09/13/17 14:29 98.3 74 16 133/70 99 09/12/17 23:06 Room Air Intake and Output 09/12/17 09/12/17 09/13/17 15:00 23:00 07:00 Intake Total 500 ml Output Total 650 ml Balance -150 ml Results Result Diagram: 09/13/17 0544 09/13/17 0544 Results 24 hrs Laboratory Tests Test 09/12/17 19:20 09/13/17 05:44 09/13/17 08:22 09/13/17 12:10 Bedside Glucose 117 91 75 White Blood Count 17.8 #H Red Blood Count 4.12 L Hemoglobin 11.7 L Hematocrit 34.2 L Mean Corpuscular Volume 83.0 Mean Corpuscular Hemoglobin 28.4 L Mean Corpuscular Hemoglobin Concent 34.2 Red Cell Distribution Width 15.6 H Platelet Count 196 Mean Platelet Volume 9.5 Neutrophils % 77.6 H Lymphocytes % 12.8 L Monocytes % 6.8 Eosinophils % 2.1 Basophils % 0.3 Nucleated Red Blood Cells % 0.0 Neutrophils # 13.8 H Lymphocytes # 2.3 Monocytes # 1.2 H Eosinophils # 0.4 Basophils # 0.1 Nucleated Red Blood Cells # 0.0 Prothrombin Time 14.5 Prothrombin Time Ratio 1.1 INR International Normalized Ratio 1.11 Activated Partial Thromboplast Time 35.1 H Sodium Level 138 Potassium Level 4.1 Chloride Level 107 Carbon Dioxide Level 24 Anion Gap 11 Blood Urea Nitrogen 14 Creatinine 0.77 Glucose Level 89 Calcium Level 8.7 Phosphorus Level 2.9 Magnesium Level 1.9 Total Bilirubin 0.3 Direct Bilirubin 0.00 Indirect Bilirubin 0.3 Aspartate Amino Transf (AST/SGOT) 21 Alanine Aminotransferase (ALT/SGPT) 31 Alkaline Phosphatase 69 Total Protein 6.8 Albumin 3.6 Globulin 3.20 Albumin/Globulin Ratio 1.12 Prostate Specific Antigen 1.2 Hepatitis B Surface Antigen NEGATIVE Hepatitis C Antibody NEGATIVE Test 09/13/17 17:21 Bedside Glucose 99 Medications Medications Current Medications Ondansetron HCl (Zofran Inj) 4 mg Q6H PRN IV NAUSEA AND/OR VOMITING; Start at 17:00 Acetaminophen (Tylenol Tab) 650 mg Q6H PRN PO PAIN LEVEL 1-3 OR FEVER; Start 09/12/17 at 17:00 Acetaminophen/ Hydrocodone Bitart ([place] (5/325)) 1 tab Q6H PRN PO MODERATE PAIN LEVEL 4-6; Start 09/12/17 at 17:00 Morphine Sulfate (morphine) 2 mg Q4H PRN IV SEVERE PAIN LEVEL 7-10; Start at 17:00 Atorvastatin Calcium (Lipitor) 10 mg QHS PO Last administered on 09/12/17 21: 18; Admin Dose 10 MG; Start 09/12/17 at 21:00 Lisinopril (Zestril) 2.5 mg DAILY PO Last administered on 09/13/17 08:23; Admin Dose 2.5 MG; Start 09/13/17 at 09:00 Metformin HCl (Glucophage) 1,000 mg DAILY PO Last administered on 09/13/17 08 :24; Admin Dose 1,000 MG; Start 09/13/17 at 09:00 Diagnostic Test (Pha) (Accu-Chek) 1 ea 02 XX ; Start 09/13/17 at 02:00 Insulin Glargine (Lantus) 11 unit DAILY@08 SC Last administered on 09/13/17 08:24; Admin Dose 11 UNIT; Start 09/13/17 at 08:00 Miscellaneous Information 1 ea NOTE XX ; Start 09/12/17 at 17:00 Glucose (Glutose) 15 gm Q15M PRN PO DECREASED GLUCOSE; Start 09/12/17 at 17:00 Glucose (Glutose) 22.5 gm Q15M PRN PO DECREASED GLUCOSE; Start 09/12/17 at 17: 00 Dextrose (D50w Syringe) 25 ml Q15M PRN IV DECREASED GLUCOSE; Start 09/12/17 at 17:00 Dextrose (D50w Syringe) 50 ml Q15M PRN IV DECREASED GLUCOSE; Start 09/12/17 at 17:00 Glucagon (Glucagen) 1 mg Q15M PRN IM DECREASED GLUCOSE; Start 09/12/17 at 17: 00 Glucose 15 gm 15 gm Q15M PRN BUCCAL DECREASED GLUCOSE; Start 09/12/17 at 17:00 Ertapenem/Sodium Chloride (Invanz/NS) 100 ml @ 200 mls/hr QAM IVPB Last administered on 09/13/17 09:14; Admin Dose 200 MLS/HR; Start 09/13/17 at 09: 00 Linagliptin (Tradjenta) 5 mg DAILY PO Last administered on 09/13/17 12:10; Admin Dose 5 MG; Start 09/13/17 at 11:00 HERACLIO ORELLANA NP Sep 13, 2017 18:37
[2017-09-13 20:01] VITALS: BP 163/74; RESP 18
[2017-09-13] MEDS: ATORVASTATIN 10 MG TAB PO SCH (21:26)
[2017-09-14] VITALS: BP 127/67; PULSE 77
[2017-09-14] MEDS: ACCU-CHEK XX SCH (02:00)
[2017-09-14 02:03] VITALS: BP 129/65; RESP 18
[2017-09-14 06:05] LABS: BASOPHILS % 0.2 % (0.0-2.0); EOSINOPHILS # 0.7 10^3/ul (0.0-0.5); EOSINOPHILS % 5.8 % (0.0-7.0); HEMATOCRIT 35.8 % (42.0-52.0); HEMOGLOBIN 12.4 g/dl (14.0-18.0); LYMPHOCYTES # 1.6 10^3/ul (0.8-2.9); MEAN CORPUSCULAR HEMOGLOBIN 28.5 pg (29.0-33.0); MEAN CORPUSCULAR HGB CONC 34.6 g/dl (32.0-37.0); MEAN CORPUSCULAR VOLUME 82.3 fl (82.0-101.0); MEAN PLATELET VOLUME 9.9 fl (7.4-10.4); MONOCYTE # 0.8 10^3/ul (0.3-0.9); MONOCYTES % 6.9 % (0.0-11.0); NEUTROPHIL # 8.1 10^3/ul (1.6-7.5); NEUTROPHILS % 72.6 % (39.0-77.0); PLATELET COUNT 207 10^3/UL (140-415); RED BLOOD COUNT 4.35 10^6/ul (4.70-6.10); RED CELL DISTRIBUTION WIDTH 15.1 % (11.5-14.5); WHITE BLOOD COUNT 11.2 10^3/ul (4.8-10.8)
[2017-09-14 06:54] LABS: CALCIUM 8.8 mg/dl (8.4-10.2); CHOL/HDL RATIO 2.1 RATIO; CREATININE 0.76 mg/dl (0.61-1.24); POTASSIUM 3.9 mmol/L (3.5-5.1)
[2017-09-14 07:34] VITALS: BP 138/65; RESP 18
[2017-09-14] MEDS: INSULIN ASPART [NOVOLOG] 3 ML PEN SC SCH ×7 (07:58→21:00)
[2017-09-14] MEDS: metFORMIN 500 MG TAB PO SCH (08:00)
[2017-09-14] MEDS: LISINOPRIL 5 MG TAB PO SCH (08:00)
[2017-09-14] MEDS: LINAGLIPTIN 5 MG TABLET PO SCH (08:00)
[2017-09-14] MEDS: INSULIN GLARGINE [LANtus] 3 ML PEN SC SCH (08:02)
[2017-09-14] MEDS: ERTAPENEM SODIUM 1 GM in SOD CHLORIDE 0.9% 100 ML IVPB SCH (08:06)
--- NOTE | 2017-09-14 08:39 | CONS ---
Date/Time of Note Date/Time of Note DATE: 09/14/17 TIME: 08:31 Consult Date/Type/Reason Admit Date/Time Sep 12, 2017 at 14:33 Initial Consult Date 09/12/17 Type of Consultation: Urology Reason for Consultation Left epididymitis Ordering Provider: BRENNAN STEPHEN [employer] HE[employer] TECHNICIAN Subjective Patient states he is better has less pain. Objective Vital Signs Date Time Temp Pulse Resp B/P Pulse Ox O2 Delivery O2 Flow Rate FiO2 09/14/17 07:34 98.1 70 18 138/65 94 09/12/17 23:06 Room Air Intake and Output 09/13/17 09/13/17 09/14/17 15:00 23:00 07:00 Intake Total 100 ml 1830 ml 300 ml Output Total 1350 ml 1400 ml Balance 100 ml 480 ml -1100 ml Exam Patient is afebrile awake and alert, the left testis and epididymis are hard but there is no fluctuation. He is voiding well and has no dysuria. Urine culture showed no growth however during his previous admission his urine culture did show E. coli ESBL. Presently he is on ertapenem Results/Medications Result Diagram: 09/14/17 0514 09/14/17 0514 Results 24 hrs Laboratory Tests Test 09/13/17 12:10 09/13/17 17:21 09/13/17 21:28 09/14/17 05:14 Bedside Glucose 75 99 121 White Blood Count 11.2 #H Red Blood Count 4.35 L Hemoglobin 12.4 L Hematocrit 35.8 L Mean Corpuscular Volume 82.3 Mean Corpuscular Hemoglobin 28.5 L Mean Corpuscular Hemoglobin Concent 34.6 Red Cell Distribution Width 15.1 H Platelet Count 207 Mean Platelet Volume 9.9 Neutrophils % 72.6 Lymphocytes % 14.0 L Monocytes % 6.9 Eosinophils % 5.8 Basophils % 0.2 Nucleated Red Blood Cells % 0.0 Neutrophils # 8.1 H Lymphocytes # 1.6 Monocytes # 0.8 Eosinophils # 0.7 H Basophils # 0.0 Nucleated Red Blood Cells # 0.0 Sodium Level 138 Potassium Level 3.9 Chloride Level 104 Carbon Dioxide Level 25 Anion Gap 13 Blood Urea Nitrogen 10 Creatinine 0.76 Glucose Level 89 Calcium Level 8.8 Triglycerides Level 75 Cholesterol Level 105 LDL Cholesterol, Calculated 42 HDL Cholesterol 48 Cholesterol/HDL Ratio 2.1 Test 09/14/17 07:57 Bedside Glucose 116 Medications Current Medications Ondansetron HCl (Zofran Inj) 4 mg Q6H PRN IV NAUSEA AND/OR VOMITING; Start at 17:00 Acetaminophen (Tylenol Tab) 650 mg Q6H PRN PO PAIN LEVEL 1-3 OR FEVER; Start 09/12/17 at 17:00 Acetaminophen/ Hydrocodone Bitart ([place] (5/325)) 1 tab Q6H PRN PO MODERATE PAIN LEVEL 4-6; Start 09/12/17 at 17:00 Morphine Sulfate (morphine) 2 mg Q4H PRN IV SEVERE PAIN LEVEL 7-10; Start at 17:00 Atorvastatin Calcium (Lipitor) 10 mg QHS PO Last administered on 09/13/17 21: 26; Admin Dose 10 MG; Start 09/12/17 at 21:00 Lisinopril (Zestril) 2.5 mg DAILY PO Last administered on 09/14/17 08:00; Admin Dose 2.5 MG; Start 09/13/17 at 09:00 Metformin HCl (Glucophage) 1,000 mg DAILY PO Last administered on 09/14/17 08 :00; Admin Dose 1,000 MG; Start 09/13/17 at 09:00 Diagnostic Test (Pha) (Accu-Chek) 1 ea 02 XX ; Start 09/13/17 at 02:00 Insulin Glargine (Lantus) 11 unit DAILY@08 SC Last administered on 09/14/17 08:02; Admin Dose 11 UNIT; Start 09/13/17 at 08:00 Miscellaneous Information 1 ea NOTE XX ; Start 09/12/17 at 17:00 Glucose (Glutose) 15 gm Q15M PRN PO DECREASED GLUCOSE; Start 09/12/17 at 17:00 Glucose (Glutose) 22.5 gm Q15M PRN PO DECREASED GLUCOSE; Start 09/12/17 at 17: 00 Dextrose (D50w Syringe) 25 ml Q15M PRN IV DECREASED GLUCOSE; Start 09/12/17 at 17:00 Dextrose (D50w Syringe) 50 ml Q15M PRN IV DECREASED GLUCOSE; Start 09/12/17 at 17:00 Glucagon (Glucagen) 1 mg Q15M PRN IM DECREASED GLUCOSE; Start 09/12/17 at 17: 00 Glucose 15 gm 15 gm Q15M PRN BUCCAL DECREASED GLUCOSE; Start 09/12/17 at 17:00 Ertapenem/Sodium Chloride (Invanz/NS) 100 ml @ 200 mls/hr QAM IVPB Last administered on 09/14/17 08:06; Admin Dose 200 MLS/HR; Start 09/13/17 at 09: 00 Linagliptin (Tradjenta) 5 mg DAILY PO Last administered on 09/14/17 08:00; Admin Dose 5 MG; Start 09/13/17 at 11:00 Assessment/Plan Chief Complaint/Hosp Course 62-year-old male with history of left epididymitis. He was treated in June 2017 and came back today with a left testicular pain. Scrotal ultrasound was reported as resolution of the epididymitis. However his CBC showed leukocytosis was a white count of 26,000. Today his white count is 11.2 and the testis and epididymis on the left side still hard and it will stay hard up to 3 months before it goes back to normal. Since his previous urine culture did show E. coli ESBL most likely he still have residual infection was the same organism and he needs to continue the ertapenem for another 1 week. There is no indication for any surgical intervention Problems: JESSICA SELLERS MD Sep 14, 2017 08:39
[2017-09-14 13:53] VITALS: BP 117/62; RESP 16
--- NOTE | 2017-09-14 14:27 | PN ---
Date/Time of Note Date/Time of Note DATE: 09/14/17 TIME: 14:22 Assessment/Plan VTE Prophylaxis VTE Prophylaxis Intervention: ambulation Lines/Catheters IV C[facility]ter Type (from [facility]): [facility] Urinary Cath still in place: No Assessment/Plan Chief Complaint/Hosp Course 62-year-old male with history of left epididymitis, treated in June 2017 and came back with left testicular pain. 1. Epididymitis. Clinically improving with IV antibiotics Status: Acute -Patient cleared for outpatient follow-up. However, patient needs 1 more week on IV atropine for which we will arrange home health. 2. Diabetes mellitus type 2 Status: Chronic -Tradjenta has been added in preparation for outpatient management as patient does not want to take insulin on discharge. -Continue Lantus, pre-meal insulin and sliding scale in-house. 3. Essential hypertension Status: Chronic -Continue current antihypertensives. 4. Hyperlipidemia Status: Chronic -On statin. 5. SIRS secondary to #1. Improving. Disposition: Once home health arranged for IV antibiotics, patient to be discharged home. Patient was seen in collaboration with Problems: Subjective 24 Hr Interval Summary Free Text/Dictation Overall, patient with improvement in testicular/scrotal pain. Exam/Review of Systems Vital Signs Vitals Vital Signs Date Time Temp Pulse Resp B/P Pulse Ox O2 Delivery O2 Flow Rate FiO2 09/14/17 13:53 98.4 96 16 117/62 98 09/12/17 23:06 Room Air Intake and Output 09/13/17 09/13/17 09/14/17 15:00 23:00 07:00 Intake Total 100 ml 1830 ml 300 ml Output Total 1350 ml 1400 ml Balance 100 ml 480 ml -1100 ml Exam General: Well developed,adequately built, not in any acute distress . HEENT: Normocephalic, Atraumatic, No laceration or hematoma; Eyes: PEERL, Conjunctiva clear, Anicteric sclera Neck: Supple without any lymphadenopathy, nontender, no JVD, no carotid bruits, trachea midline, no thyromegaly Cardiac: S1, S2 auscultated, regular rhythm and rate, no mumurs or gallop Pulmonary: Normal respiratory effort. Chest clear to auscultation bilaterally, no adventitious breath sounds GI: Abdomen normal to inspection. Soft, non tender, non- distended, no masses, no rebound tenderness or guarding. Bowel sounds active on all four quadrants Genitourinary: Deferred Extremities: No cyanosis, clubbing, or edema. Pulses [2+] bilaterally. Full ROM on all four extremities. No focal weakness appreciated. Neurologic: Alert to person, place, time, and situation. Affect appropriate, intact sensation. Skin: Clean,dry, and intact. No ecchymosis, no rashes, or lesions Results Result Diagram: 09/14/1714 09/14/1714 Results 24 hrs Laboratory Tests Test 09/13/17 17:21 09/13/17 21:28 09/14/17 05:14 09/14/17 07:57 Bedside Glucose 99 121 116 White Blood Count 11.2 #H Red Blood Count 4.35 L Hemoglobin 12.4 L Hematocrit 35.8 L Mean Corpuscular Volume 82.3 Mean Corpuscular Hemoglobin 28.5 L Mean Corpuscular Hemoglobin Concent 34.6 Red Cell Distribution Width 15.1 H Platelet Count 207 Mean Platelet Volume 9.9 Neutrophils % 72.6 Lymphocytes % 14.0 L Monocytes % 6.9 Eosinophils % 5.8 Basophils % 0.2 Nucleated Red Blood Cells % 0.0 Neutrophils # 8.1 H Lymphocytes # 1.6 Monocytes # 0.8 Eosinophils # 0.7 H Basophils # 0.0 Nucleated Red Blood Cells # 0.0 Sodium Level 138 Potassium Level 3.9 Chloride Level 104 Carbon Dioxide Level 25 Anion Gap 13 Blood Urea Nitrogen 10 Creatinine 0.76 Glucose Level 89 Calcium Level 8.8 Triglycerides Level 75 Cholesterol Level 105 LDL Cholesterol, Calculated 42 HDL Cholesterol 48 Cholesterol/HDL Ratio 2.1 Test 09/14/17 12:13 Bedside Glucose 83 Medications Medications Current Medications Ondansetron HCl (Zofran Inj) 4 mg Q6H PRN IV NAUSEA AND/OR VOMITING; Start at 17:00 Acetaminophen (Tylenol Tab) 650 mg Q6H PRN PO PAIN LEVEL 1-3 OR FEVER; Start 09/12/17 at 17:00 Acetaminophen/ Hydrocodone Bitart ([place] (5/325)) 1 tab Q6H PRN PO MODERATE PAIN LEVEL 4-6 Last administered on 09/14/17t 12:13; Admin Dose 1 TAB; Start 09/12/17 at 17:00 Morphine Sulfate (morphine) 2 mg Q4H PRN IV SEVERE PAIN LEVEL 7-10; Start at 17:00 Atorvastatin Calcium (Lipitor) 10 mg QHS PO Last administered on 09/13/17 21: 26; Admin Dose 10 MG; Start 09/12/17 at 21:00 Lisinopril (Zestril) 2.5 mg DAILY PO Last administered on 09/14/17 08:00; Admin Dose 2.5 MG; Start 09/13/17 at 09:00 Metformin HCl (Glucophage) 1,000 mg DAILY PO Last administered on 09/14/17 08 :00; Admin Dose 1,000 MG; Start 09/13/17 at 09:00 Diagnostic Test (Pha) (Accu-Chek) 1 ea 02 XX ; Start 09/13/17 at 02:00 Insulin Glargine (Lantus) 11 unit DAILY@08 SC Last administered on 09/14/17 08:02; Admin Dose 11 UNIT; Start 09/13/17 at 08:00 Miscellaneous Information 1 ea NOTE XX ; Start 09/12/17 at 17:00 Glucose (Glutose) 15 gm Q15M PRN PO DECREASED GLUCOSE; Start 09/12/17 at 17:00 Glucose (Glutose) 22.5 gm Q15M PRN PO DECREASED GLUCOSE; Start 09/12/17 at 17: 00 Dextrose (D50w Syringe) 25 ml Q15M PRN IV DECREASED GLUCOSE; Start 09/12/17 at 17:00 Dextrose (D50w Syringe) 50 ml Q15M PRN IV DECREASED GLUCOSE; Start 09/12/17 at 17:00 Glucagon (Glucagen) 1 mg Q15M PRN IM DECREASED GLUCOSE; Start 09/12/17 at 17: 00 Glucose 15 gm 15 gm Q15M PRN BUCCAL DECREASED GLUCOSE; Start 09/12/17 at 17:00 Ertapenem/Sodium Chloride (Invanz/NS) 100 ml @ 200 mls/hr QAM IVPB Last administered on 09/14/17 08:06; Admin Dose 200 MLS/HR; Start 09/13/17 at 09: 00 Linagliptin (Tradjenta) 5 mg DAILY PO Last administered on 09/14/17 08:00; Admin Dose 5 MG; Start 09/13/17 at 11:00 MARITZA LARSEN NP Sep 14, 2017 14:27
[2017-09-14 19:54] VITALS: BP 147/70; RESP 16
[2017-09-14] MEDS: ATORVASTATIN 10 MG TAB PO SCH (21:08)
[2017-09-15 02:00] VITALS: BP 127/69; RESP 16
[2017-09-15] MEDS: ACCU-CHEK XX SCH (02:00)
[2017-09-15 06:35] LABS: BASOPHILS % 0.5 % (0.0-2.0); EOSINOPHILS # 0.8 10^3/ul (0.0-0.5); EOSINOPHILS % 10.1 % (0.0-7.0); HEMATOCRIT 36.7 % (42.0-52.0); HEMOGLOBIN 12.4 g/dl (14.0-18.0); LYMPHOCYTES # 1.6 10^3/ul (0.8-2.9); LYMPHOCYTES % 20.4 % (15.0-51.0); MEAN CORPUSCULAR HEMOGLOBIN 27.9 pg (29.0-33.0); MEAN CORPUSCULAR HGB CONC 33.8 g/dl (32.0-37.0); MEAN CORPUSCULAR VOLUME 82.5 fl (82.0-101.0); MEAN PLATELET VOLUME 9.6 fl (7.4-10.4); MONOCYTE # 0.7 10^3/ul (0.3-0.9); MONOCYTES % 9.5 % (0.0-11.0); NEUTROPHIL # 4.5 10^3/ul (1.6-7.5); NEUTROPHILS % 59.1 % (39.0-77.0); PLATELET COUNT 248 10^3/UL (140-415); RED BLOOD COUNT 4.45 10^6/ul (4.70-6.10); RED CELL DISTRIBUTION WIDTH 14.5 % (11.5-14.5); WHITE BLOOD COUNT 7.6 10^3/ul (4.8-10.8)
--- NOTE | 2017-09-15 06:35 | PN ---
DATE: 09/14/2017 SUBJECTIVE: Patient is alert, feels good, looks comfortable, afebrile. WBC 11.2, platelets 207, no shift, no bands. BUN 10, creatinine 0.76. MICROBIOLOGY: Blood cultures negative. Urine culture consistent with contaminant. ANTIMICROBIALS: The patient is on Invanz. PHYSICAL EXAMINATION: GENERAL: Well-developed elderly man who is alert, in no distress. HEENT: Head atraumatic, normocephalic. Sclerae anicteric. Buccal mucosa pink. NECK: Supple. CHEST: Rise symmetrical. Breath sounds clear. HEART: S1, S2. ABDOMEN: Soft. Bowel tones present. EXTREMITIES: Without cyanosis. ASSESSMENT: 1. Systemic inflammatory response syndrome. 2. Urinary retention. 3. Benign prostatic hypertrophy. 4. Left epididymitis with previous urine culture grew Escherichia coli extended-spectrum beta-lacta leta. 5. Diabetes. 6. Hypertension. PLAN: Patient remains stable. Continue present care, antibiotics. Follow urology recommendations. Dictated By: JOSÉ MIGUEL CASPER [employer]URB WRITER for [employer] Conf#: [id number] DID#: [id number]
[2017-09-15 07:12] LABS: CALCIUM 8.8 mg/dl (8.4-10.2); CREATININE 0.71 mg/dl (0.61-1.24)
[2017-09-15 07:29] VITALS: BP 107/57; RESP 14
[2017-09-15] MEDS: INSULIN ASPART [NOVOLOG] 3 ML PEN SC SCH ×4 (08:05→12:12)
[2017-09-15] MEDS: INSULIN GLARGINE [LANtus] 3 ML PEN SC SCH (08:09)
[2017-09-15] MEDS: metFORMIN 500 MG TAB PO SCH (08:25)
[2017-09-15] MEDS: LINAGLIPTIN 5 MG TABLET PO SCH (08:25)
[2017-09-15] MEDS: LISINOPRIL 5 MG TAB PO SCH (08:26)
[2017-09-15] MEDS: ERTAPENEM SODIUM 1 GM in SOD CHLORIDE 0.9% 100 ML IVPB SCH (08:30)
--- NOTE | 2017-09-15 11:12 | PDOCDIS ---
Discharge Instructions CONDITION Patient Condition: Stable HOME CARE INSTRUCTIONS: Diet Instructions: Low Fat /Cholesterol FOLLOW UP/APPOINTMENTS Follow-up Plan 1.Follow up with primary care physician in 1 week If you don't have one please let someone know, we can give you resources that may help you pick one. You may also call your insurance company to assign one to you. Review your medication list with your nurse before leaving and if you need new prescriptions please let your nurse know. I may have made changes to your home medications or given you new prescriptions, please let your primary doctor know as well. Stay compliant with your medications and report any side effects to your PCP or pharmacist. Return to the ER if you have any concerns and cannot reach your doctors or call your insurance company, they usually have a nurse that can help you. 2. Call 911 or go to the nearest emergency room if experiencing loss of consciousness, dizziness, chest pain, shortness of breath, vomiting/abdominal pain, speech difficulties, motor weakness or any unusual symptoms. MARITZA LARSEN NP Sep 15, 2017 11:12
[2017-09-15] MEDS ORDERED: ERTA1VIA IV (11:14)
--- NOTE | 2017-09-15 11:23 | DS ---
Date/Time of Note Date/Time of Note DATE: 09/15/17 TIME: 11:18 Discharge Summary Admission/Discharge Info Admit Date/Time Sep 12, 2017 at 14:33 Discharge Date/Time Discharge Diagnosis 1. Epididymitis. Resolved. 2. Diabetes mellitus type 2 3. Essential hypertension 4. Hyperlipidemia 5. Status post SIRS secondary to #1. Patient Condition: Stable Consults , urology Procedures 09/12/2017. Testicular/Scrotal sound. IMPRESSION: 1. Resolution of the left epididymitis. 2. Resolution of the small bilateral hydroceles. 3. Unremarkable appearance of the bilateral testicles. Hospital Course This is a 62-year-old male with a past medical history of left epididymitis, treated in June 2017 came back with left testicular pain. Patient was noted with leukocytosis with a white count of 26,000. Patient was continued on his home medication for underlying comorbid conditions. Patient was evaluated by urology. Scrotal ultrasound with resolution of the left epididymitis with resolution of small bilateral hydrocele. His left testis and epididymis were hard but there was no fluctuation. Patient did not have any voiding difficulties or dysuria. Urine culture without any growth. However patient was noted with E. coli ESBL UTI with his previous admission at [facility]. Patient was continued on ertapenem per urology and ID recommendation. Leukocytosis resolved. At this time, patient is feeling back to his baseline. Testicular pain resolved. Patient had a midline placed for 7 more days on IV atropine. As per urology recommendation, it might take 3 months before the hardness on left testis to go back to normal. Patient is aware of this. He was also recommended to continue his home medications upon discharge. He verbalized discharge instructions. Approximately 60 minutes was spent in coordinating the discharge on this patient. Patient is seen in collaboration with [facility] Active Scripts Blood-Glucose Meter (Blood Glucose Meter) 1 Each Each, 1 EACH MC, #1 Prov:MATHEW OLMOS MD 07/18/17 Blood Glucose Strips-Dispmeter (Kustom Codes Blood Glucose System) 1 Each Kit, 1 EACH MC, #60 Prov:MATHEW OLMOS MD 07/18/17 Lancing Device/Lancets (ACCU-CHEK FASTCLIX LANCET KIT) 1 Each Kit, 1 EACH MC BID for glucose monitoring, #60 Prov:MATHEW OLMOS MD 07/18/17 Hydrocodone Bit-Acetaminophen (Hydrocodone Bit-APAP) 5-325MG Tablet, 1 TAB PO Q6H Y for MODERATE PAIN LEVEL 4-6 for 10 Days, #20 TAB Prov:MATHEW OLMOS MD 07/18/17 Reported Medications Lisinopril* (Lisinopril*) 2.5 Mg Tablet, 2.5 MG PO DAILY, #30 TAB 07/14/17 Sitagliptin* (Januvia*) 50 Mg Tablet, 50 MG PO DAILY, #30 TAB 07/14/17 Atorvastatin (Atorvastatin) 10 Mg Tablet, 10 MG PO QHS, #30 TAB 07/14/17 Glipizide* (Glipizide*) 10 Mg Tablet, 10 MG PO BID, #2 TAB 07/12/17 Metformin* (Glucophage*) 1,000 Mg Tablet, 1000 MG PO DAILY, #30 TAB 07/12/17 Follow-up Plan 1.Follow up with primary care physician in 1 week If you don't have one please let someone know, we can give you resources that may help you pick one. You may also call your insurance company to assign one to you. Review your medication list with your nurse before leaving and if you need new prescriptions please let your nurse know. I may have made changes to your home medications or given you new prescriptions, please let your primary doctor know as well. Stay compliant with your medications and report any side effects to your PCP or pharmacist. Return to the ER if you have any concerns and cannot reach your doctors or call your insurance company, they usually have a nurse that can help you. 2. Call 911 or go to the nearest emergency room if experiencing loss of consciousness, dizziness, chest pain, shortness of breath, vomiting/abdominal pain, speech difficulties, motor weakness or any unusual symptoms. Primary Care Provider Not On Staff Doctor Pending Labs Laboratory Tests Test 09/14/17 12:13 09/14/17 17:15 09/14/17 21:07 09/15/17 05:48 Bedside Glucose 83mg/dL (70-220) 136mg/dL (70-220) 114mg/dL (70-220) White Blood Count 7.610^3/ul (4.8-10.8) Red Blood Count 4.4510^6/ul (4.70-6.10) Hemoglobin 12.4g/dl (14.0-18.0) Hematocrit 36.7% (42.0-52.0) Mean Corpuscular Volume 82.5fl (82.0-101.0) Mean Corpuscular Hemoglobin 27.9pg (29.0-33.0) Mean Corpuscular Hemoglobin Concent 33.8g/dl (32.0-37.0) Red Cell Distribution Width 14.5% (11.5-14.5) Platelet Count 52673^3/UL (140-415) Mean Platelet Volume 9.6fl (7.4-10.4) Neutrophils % 59.1% (39.0-77.0) Lymphocytes % 20.4% (15.0-51.0) Monocytes % 9.5% (0.0-11.0) Eosinophils % 10.1% (0.0-7.0) Basophils % 0.5% (0.0-2.0) Nucleated Red Blood Cells % 0.0/100WBC (0.0-0.0) Neutrophils # 4.510^3/ul (1.6-7.5) Lymphocytes # 1.610^3/ul (0.8-2.9) Monocytes # 0.710^3/ul (0.3-0.9) Eosinophils # 0.810^3/ul (0.0-0.5) Basophils # 0.010^3/ul (0.0-0.1) Nucleated Red Blood Cells # 0.010^3/ul (0.0-0.0) Sodium Level 138mmol/L (135-144) Potassium Level 4.0mmol/L (3.5-5.1) Chloride Level 103mmol/L (97-110) Carbon Dioxide Level 26mmol/L (21-31) Anion Gap 13 (8-16) Blood Urea Nitrogen 10mg/dl (7-20) Creatinine 0.71mg/dl (0.61-1.24) Glucose Level 95mg/dl (70-220) Calcium Level 8.8mg/dl (8.4-10.2) Test 09/15/17 08:03 Bedside Glucose 114mg/dL (70-220) MARITZA LARSEN NP Sep 15, 2017 11:23
--- NOTE | 2017-09-15 19:47 | CONS ---
Date/Time of Note Date/Time of Note DATE: 09/15/17 TIME: 19:46 Assessment/Plan Assessment/Plan Chief Complaint/Hosp Course SUBJECTIVE: Patient is alert, feels good, looks comfortable, afebrile. MICROBIOLOGY: Blood cultures negative. Urine culture consistent with contaminant. ANTIMICROBIALS: The patient is on Invanz. PHYSICAL EXAMINATION: GENERAL: Well-developed elderly man who is alert, in no distress. HEENT: Head atraumatic, normocephalic. Sclerae anicteric. Buccal mucosa pink. NECK: Supple. CHEST: Rise symmetrical. Breath sounds clear. HEART: S1, S2. ABDOMEN: Soft. Bowel tones present. EXTREMITIES: Without cyanosis. ASSESSMENT: 1. Systemic inflammatory response syndrome. 2. Urinary retention. 3. Benign prostatic hypertrophy. 4. Left epididymitis with previous urine culture grew Escherichia coli extended -spectrum beta-lactamase. 5. Diabetes. 6. Hypertension. PLAN: Patient remains stable. Continue present care, pending dc on current abx to complete 2 weeks. Follow urology recommendations. DW staff Problems: Consultation Date/Type/Reason Admit Date/Time Sep 12, 2017 at 14:33 Initial Consult Date 09/12/17 Type of Consultation: id Referring Provider: BRENNAN STEPHEN OPTOMETRIC ASSISTANT Exam/Review of Systems Vital Signs Vitals Vital Signs Date Time Temp Pulse Resp B/P Pulse Ox O2 Delivery O2 Flow Rate FiO2 09/15/17 07:29 97.8 89 14 107/57 96 09/12/17 23:06 Room Air Intake and Output 09/14/17 09/14/17 09/15/17 15:00 23:00 07:00 Intake Total 940 ml 820 ml Output Total 700 ml 700 ml Balance 240 ml 120 ml Results Result Diagram: 09/15/17 0548 09/15/17 0548 Results 24 hrs Laboratory Tests Test 09/14/17 21:07 09/15/17 05:48 09/15/17 08:03 09/15/17 12:07 Bedside Glucose 114 114 124 White Blood Count 7.6 # Red Blood Count 4.45 L Hemoglobin 12.4 L Hematocrit 36.7 L Mean Corpuscular Volume 82.5 Mean Corpuscular Hemoglobin 27.9 L Mean Corpuscular Hemoglobin Concent 33.8 Red Cell Distribution Width 14.5 Platelet Count 248 Mean Platelet Volume 9.6 Neutrophils % 59.1 Lymphocytes % 20.4 Monocytes % 9.5 Eosinophils % 10.1 H Basophils % 0.5 Nucleated Red Blood Cells % 0.0 Neutrophils # 4.5 Lymphocytes # 1.6 Monocytes # 0.7 Eosinophils # 0.8 H Basophils # 0.0 Nucleated Red Blood Cells # 0.0 Sodium Level 138 Potassium Level 4.0 Chloride Level 103 Carbon Dioxide Level 26 Anion Gap 13 Blood Urea Nitrogen 10 Creatinine 0.71 Glucose Level 95 Calcium Level 8.8 JOSÉ MIGUEL CASPER NP Sep 15, 2017 19:47
== END 2017-09-15 13:28 | disposition home or self-care (01) | DRG 728 ==
LOC: FTE 09:56 → MS2 14:33
PROVIDERS: ADMIT Internal Medicine; ATTEND Internal Medicine
DX: N45.1 Epididymitis (principal); I10 Essential (primary) hypertension; E11.9 Type 2 diabetes mellitus without complications; E78.5 Hyperlipidemia, unspecified; N40.1 Benign prostatic hyperplasia with lower urinary tract symptoms; R33.8 Other retention of urine
CPT/HCPCS: 36415; 76856; 76870; 80048; 80053; 80061; 81001; 82962; 83605; 83735; 84100; 84153; 84154; 85025; 85610; 85730; 86803; 87040; 87086; 87340; 87591; 96372; 96374; 96375; J0696; J1335; J1815; J7030; J7060